=== PATIENT | female | born 1975 | race Caucasian/White ===

== ENCOUNTER 2016-07-17 16:32 | Emergency (ER) | payer OTHER, MEDICARE, MEDICAID ==
[2016-07-17 17:00] LABS: Urine Bacteria 3+ (Absent); Urine Bilirubin Negative (Negative); Urine Glucose 3+(>=500 mg/dL) (Negative); Urine Nitrite Negative (Negative)
[2016-07-17] MEDS ORDERED: Ciprofloxacin TAB* 500 MG PO ONE (17:03)
--- NOTE | 2016-07-17 17:05 | ED ---
GI/ HPI - HPI Summary HPI Summary: 41F w/ Type 1 DM presents with dysuria since yesterday. She states she has a new partner. She admits to foul smelling urine, increase frequency, urgency, and pelvic pain. She denies any fever, hematuria, flank pain, n/v. she states her sugars have been higher than normal. She states she has borderline renal failure. She has taken ciprofloxacin and amoxillicin in the past. She is on the mirena. She denies any vaginal discharge. - History of Current Complaint Chief Complaint: EDUrogenitalProblems Time Seen by Provider: 07/17/16 16:46 Stated Complaint: POSSIBLE UTI Pain Intensity: 6 - Additional Pertinent History Primary Care Physician: [id number] - Allergy/Home Medications Allergies/Adverse Reactions: Allergies Allergy/AdvReac Type Severity Reaction Status Date / Time Hydromorphone [From Dilaudid] Allergy Severe Anaphylatic Verified 07/17/16 16:39 Shock Morphine Allergy Intermediate Hives Verified 07/17/16 16:39 Erythromycin Allergy Mild Rash Verified 07/17/16 16:39 OPIATES AdvReac Vomiting Uncoded 07/17/16 16:39 PMH/Surg Hx/FS Hx/Imm Hx Endocrine/Hematology History: Reports: Hx Diabetes - type 1 Denies: Hx Anticoagulant Therapy, Hx Blood Disorders, Hx Blood Transfusions, Hx Bone Marrow Disease, Hx Systemic Lupus Erythematosus, Hx Sickle Cell Disease , Hx Thyroid Disease, Hx Anemia, Hx Unexplained Bleeding, Other Endocrine/ Hematological Disorders Cardiovascular History: Reports: Hx Hypertension, Hx Peripheral Vascular Disease Denies: Hx Aneurysm, Hx Angina, Hx Angioplasty, Hx Auto Implanted Cardiovert Defib, Hx Cardiac Arrest, Hx Cardiomegaly, Hx Congenital Heart Disease, Hx Congestive Heart Failure, Hx Coronary Artery Disease, Hx Deep Vein Thrombosis, Hx Embolism, Hx Hypercholesterolemia, Hx Hypotension, Hx Pacemaker/ICD, Hx Rheumatic Fever, Hx Syncope, Hx Valvular Heart Disease, Other Cardiovascular Problems/Disorders Respiratory History: Reports: Hx Asthma Denies: Hx Chronic Bronchitis, Hx Chronic Obstructive Pulmonary Disease (COPD ), Hx Cystic Fibrosis, Hx Lung Cancer, Hx Pleural Effusion, Hx Pneumonia, Hx Pulmonary Edema, Hx Pulmonary Embolism, Hx Seasonal Allergies, Hx Sleep Apnea, Other Respiratory Problems/Disorders GI History: Reports: Other GI Disorders Denies: Hx Cirrhosis, Hx Diverticulosis, Hx Gall Bladder Disease, Hx Gastroesophageal Reflux Disease, Hx Gastrointestinal Bleed, Hx Hiatal Hernia, Hx Irritable Bowel, Hx Jaundice, Hx Obstructive Bowel, Hx Ileostomy, Hx Pyloric Stenosis, Hx Ulcer History: Reports: Hx Acute Renal Failure, Hx Chronic Renal Failure, Hx Kidney Infection, Hx Renal Disease - ACUTE & CHRONIC RENAL FAILURE/IDDM I Denies: Hx Benign Prostatic Hyperplasia, Hx Dialysis, Hx Kidney Stones, Other Problems/Disorders Musculoskeletal History: Reports: Hx Back Problems Denies: Hx Arthritis, Hx Bursitis, Hx Congenital Bone Abnormalities, Hx Fibromyalgia, Hx Gout, Hx Orthopedic Injury, Hx Osteoporosis, Hx Scoliosis, Hx Tendonitis, Other Musculoskeletal History Sensory History: Reports: Hx Legally Blind, Hx Vision Problem - right retinal detachment Denies: Hx Cataracts, Hx Contacts or Glasses, Hx Eye Injury, Hx Eye Prosthesis, Hx Glaucoma, Hx Macular Degeneration, Hx Deafness, Hx Hearing Aid, Hx Hearing Problem, Other Sensory Impairments Opthamlomology History: Reports: Hx Legally Blind, Hx Vision Problem - right retinal detachment Denies: Hx Cataracts, Hx Contacts or Glasses, Hx Eye Injury, Hx Eye Prosthesis, Hx Glaucoma, Hx Macular Degeneration, Other Sensory Impairments Neurological History: Reports: Hx Migraine, Hx Seizures, Hx Transient Ischemic Attacks (TIA), Other Neuro Impairments/Disorders - hx. of disc disease per pt. Denies: Hx Dementia, Hx Developmental Delay, Hx Headaches, Hx Nerve Disease, Hx Spinal Cord Injury Psychiatric History: Reports: Hx Depression, Hx Inpatient Treatment - [facility] 1999 Denies: Hx Anxiety, Hx Attention Deficit Hyperactivity Disorder, Hx Eating Disorder, Hx Panic Disorder, Hx Post Traumatic Stress Disorder, Hx Community Mental Health Tx, Hx Schizophrenia, Hx Bipolar Disorder, Hx Suicide Attempt, Hx of Violent Episodes Against Others, Hx Substance Abuse, Other Psychiatric Issues /Disorders - Cancer History Hx Chemotherapy: No Hx Radiation Therapy: No Hx Palliative Cancer Treatment: No - Surgical History Surgery Procedure, Year, and Place: tubal ligation. 2 c-sections. bone spur left foot removed, VITRECTOMY RIGHT EYE FOR RETINAL DETACHMENT Hx Anesthesia Reactions: No Infectious Disease History: No Infectious Disease History: Reports: History Other Infectious Disease - HERPES Denies: Hx Clostridium Difficile, Hx Hepatitis, Hx Human Immunodeficiency Virus (HIV), Hx of Known/Suspected MRSA, Hx Shingles, Hx Tuberculosis, Hx Known/ Suspected VRE, Hx Known/Suspected VRSA, Traveled Outside the [place] in Last 30 Days - Family History Known Family History: Positive: None, Diabetes Negative: Cardiac Disease, Hypertension Family History: Crohn's Dz: half sister - Social History Alcohol Use: Occasionally Substance Use Type: Reports: None Hx Tobacco Use: Yes Smoking Status (MU): Current Every Day Smoker Type: Cigarettes Amount Used/How Often: 1 PPD Length of Time of Smoking/Using Tobacco: 29 years Have You Smoked in the Last Year: Yes Review of Systems Negative: Fever Negative: Chest Pain Negative: Shortness Of Breath Positive: Other - pelvic pain. Negative: Vomiting, Nausea Positive: dysuria, frequency, urgency. Negative: flank pain, hematuria All Other Systems Reviewed And Are Negative: Yes Physical Exam Triage Information Reviewed: Yes Vital Signs On Initial Exam: Initial Vitals Temp Pulse Resp BP Pulse Ox 96.8 F 99 18 133/85 100 07/17/16 16:38 07/17/16 16:38 07/17/16 16:38 07/17/16 16:38 07/17/16 16:38 Vital Signs Reviewed: Yes Appearance: Positive: Well-Appearing Skin: Positive: Warm, Dry Head/Face: Positive: Normal Head/Face Inspection Eyes: Positive: Normal, Conjunctiva Clear Respiratory/Lung Sounds: Positive: Clear to Auscultation, Breath Sounds Present Cardiovascular: Positive: Normal, RRR Abdomen Description: Positive: Nontender, Soft Bowel Sounds: Positive: Present - [place] Coma Scale Coma Scale Total: 15 Diagnostics - Vital Signs Vital Signs Temp Pulse Resp BP Pulse Ox 07/17/16 16:38 96.8 F 99 18 133/85 100 - Laboratory Lab Results: Lab Results 07/17/16 Range/Units 16:45 Urine Color Yellow Urine Appearance Cloudy Urine pH 5.0 (5-9) Ur Specific [place] 1.015 (1.010-1.030) Urine Protein 3+(>=500 mg/dl) H (Negative) Urine Ketones Negative (Negative) Urine Blood Negative (Negative) Urine Nitrate Negative (Negative) Urine Bilirubin Negative (Negative) Urine Urobilinogen Negative (Negative) Ur Leukocyte Esterase Trace H (Negative) Urine WBC (Auto) 2+(11-20/hpf) H (Absent) Urine RBC (Auto) Absent (Absent) Ur Squamous Epith Cells Present H (Absent) Urine Bacteria 3+ H (Absent) Hyaline Casts Present H (Absent) Urine Glucose 3+(>=500 mg/dl) H (Negative) Result Diagrams: 07/17/16 16:59 07/17/16 16:59 Lab Statement: Any lab studies that have been ordered have been reviewed, and results considered in the medical decision making process. GIGU Course/Dx - Course Course Of Treatment: 41F presents with symptoms of UTI fopr 2 days: dysuria, frequency, urgency. she is a DM1 and has noticed her sugars are slightly higher than normal. She has a new partner. she states that she has borderline renal failure and normal either uses amoxicillin or ciprofloxacin for UTI. She is sometimes on a ppx antibiotic for UTI. patient urine has bacteria and leuko esterase so will treat for uti with cipro. discussed that can not give pyrudium in renal failure but patient states would like a dose and gave it before got labs back. told to follow up with primary to make sure resolves and discuss ppx antibiotic. Cr more elevated than before so told to follow up with dr canada who follows for kidney issues. told to return if develops fever or flank pain, patient understands and agrees with plan - Diagnoses Differential Diagnoses - Female: Pyelonephritis, STD, Urinary Tract Infection, Ureteral Calculi Provider Diagnoses: Urinary tract infection Discharge - Discharge Plan Condition: Good Disposition: HOME Prescriptions: Ciprofloxacin TAB* [Cipro 500 MG TAB*] 500 mg PO BID #9 tab Patient Education Materials: Urinary Tract Infection in Women (ED) Referrals: Ortiz Rao MD [Primary Care Provider] - Additional Instructions: Take cipro twice a day for 5 days, first dose given in ED Drink plenty of fluids Check sugars as may need to increase insulin Follow up with primary in 5 days about kidney function and prophylactic antibiotics Return to ED if develop fever, severe abdominal pain or flank pain, nausea, or vomiting or any new or worsening symptoms
[2016-07-17 17:07] LABS: Hematocrit 40 % (35-47); Hemoglobin 13.3 g/dl (12.0-16.0); Mean Corpuscular HGB Conc 33 g/dl (31-36); Mean Corpuscular Hemoglobin 30 pg (27-31); Mean Corpuscular Volume 90 fL (80-97); Mean Platelet Volume 10 um3 (7.4-10.4); Red Blood Count 4.45 10^6/ul (4.0-5.4); Red Cell Distribution Width 13 % (10.5-15); White Blood Count 7.3 10^3/ul (3.5-10.8)
[2016-07-17] MEDS ORDERED: Phenazopyridine TAB* 100 MG PO ONE (17:10)
[2016-07-17 17:22] LABS: Albumin 4.1 g/dL (3.2-5.2); BUN/Creatinine Ratio 11.1 (8-20); Calcium 9.6 mg/dL (8.6-10.3); EGFR African American 33.6 (>60); EGFR Non-African American 26.1 (>60); Globulin 2.8 g/dL (2-4); Potassium 4.2 mmol/L (3.5-5.0); Total Bilirubin 0.6 mg/dL (0.2-1.0); Total Protein 6.9 g/dL (6.4-8.9)
[2016-07-17 17:24] VITALS: BP 166/91
--- NOTE | 2016-07-19 17:22 | PN ---
Progress Note - Progress Note Note: Urine culture grew E. Coli. Patient appropriately placed on cipro. nothing further to do at this time. Will await sensitivities for possible abx change.
== END 2016-07-17 17:23 | disposition home or self-care (01) ==
LOC: ED 16:32
DX: N39.0 Urinary tract infection, site not specified (principal); E10.8 Type 1 diabetes mellitus with unspecified complications; R10.2 Pelvic and perineal pain; R30.0 Dysuria; F17.210 Nicotine dependence, cigarettes, uncomplicated
CPT/HCPCS: 36415; 80053; 81003; 81015; 85025; 87077; 87086; 87186; 99283; A9270-GY

== ENCOUNTER → 2016-11-09 06:59 | Emergency (ER) | payer OTHER, MEDICARE, MEDICAID ==
[~2016-11-09 06:59] MED LIST: NS 0.9% 1000 ML* 1,000 ML IV ONE; cefTRIAXone(*) 1 GM in NS 0.9% 50 ML* 50 ML IVPB ONE
[2016-11-09 08:17] LABS: Hematocrit 44 % (35-47); Hemoglobin 14.6 g/dl (12.0-16.0); Mean Corpuscular HGB Conc 33 g/dl (31-36); Mean Corpuscular Hemoglobin 31 pg (27-31); Mean Corpuscular Volume 94 fL (80-97); Mean Platelet Volume 9 um3 (7.4-10.4); Red Blood Count 4.65 10^6/ul (4.0-5.4); Red Cell Distribution Width 13 % (10.5-15); White Blood Count 10.6 10^3/ul (3.5-10.8)
[2016-11-09 08:32] LABS: Albumin 3.8 g/dL (3.2-5.2); BUN/Creatinine Ratio 17.3 (8-20); C Reactive Protein 13.71 mg/L (< 5.00); Calcium 9.3 mg/dL (8.6-10.3); EGFR African American 36.9 (>60); EGFR Non-African American 28.7 (>60); Potassium 3.7 mmol/L (3.5-5.0); Total Bilirubin 0.5 mg/dL (0.2-1.0); Total Protein 6.8 g/dL (6.4-8.9)
[2016-11-09 08:34] LABS: Troponin I 0.01 ng/mL (<0.04)
--- NOTE | 2016-11-09 08:50 | RAD ---
INDICATION: RIGHT lower extremity pain and edema. Diabetic. COMPARISON: LEFT lower extremity venous ultrasound November 08, 2016 TECHNIQUE: Ware scale, color Doppler, and spectral analysis of the deep veins of the RIGHT lower extremity. Vessel compression, phasicity, and augmentation assessed. REPORT: The RIGHT common femoral, great saphenous, profunda femoral, femoral, popliteal, peroneal, and posterior tibial veins are patent. Normal size and morphology common femoral level lymph node noted. Patency of the LEFT common femoral vein documented. IMPRESSION: No evidence for RIGHT lower extremity deep venous thrombosis.
--- NOTE | 2016-11-09 09:44 | ED ---
Rodrigo Cage Auryana, scribed for Bryson Rocha MD on 11/09/16 at 0715 . Lower Extremity - HPI Summary HPI Summary: 41 year old female presents with right knee pain, erythema and swelling starting 3 days ago. Mild improvement of swelling with diuretic. Pain is aggravated by ambulation. Patient reports that she has had bilateral LE edema for the last 3 months - recently had US of left leg - no DVT. 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 Denies any history of knee surgeries, liver failure, or CHF. SHx is significant for occasional alcohol use and tobacco use, but denies any recreational drug use. Dr. Rao is her PCP. - History of Current Complaint Chief Complaint: EDExtremityLower Stated Complaint: RT KNEE SWELLING/PAIN Time Seen by Provider: 11/09/16 07:29 Hx Obtained From: Patient Hx Last Menstrual Period: MIRENA IUD Mechanism Of Injury: Unknown Onset of Pain: Days - 3 Onset/Duration: Days - 3 Severity Initially: Mild Severity Currently: Moderate Pain Intensity: 6 Pain Scale Used: 0-10 Numeric Timing: Constant Location: Is Discrete @ - right knee Associated Signs And Symptoms: Positive: Swelling, Redness, Knee Pain - right Aggravating Factor(s): Ambulation Alleviating Factor(s): Other - lasik Able to Bear Weight: Yes - with pain Related History: Other - no injury - Risk Factors Gout Risk Factors: Diabetes - Allergies/Home Medications Allergies/Adverse Reactions: Allergies Allergy/AdvReac Type Severity Reaction Status Date / Time Hydromorphone [From Dilaudid] Allergy Severe Anaphylatic Verified 07/17/16 16:39 Shock Morphine Allergy Intermediate Hives Verified 07/17/16 16:39 Erythromycin Allergy Mild Rash Verified 07/17/16 16:39 OPIATES AdvReac Vomiting Uncoded 07/17/16 16:39 PMH/Surg Hx/FS Hx/Imm Hx Endocrine/Hematology History: Reports: Hx Diabetes - type 1 Denies: Hx Anticoagulant Therapy, Hx Blood Disorders, Hx Blood Transfusions, Hx Bone Marrow Disease, Hx Systemic Lupus Erythematosus, Hx Sickle Cell Disease , Hx Thyroid Disease, Hx Anemia, Hx Unexplained Bleeding, Other Endocrine/ Hematological Disorders Cardiovascular History: Reports: Hx Hypertension, Hx Peripheral Vascular Disease Denies: Hx Aneurysm, Hx Angina, Hx Angioplasty, Hx Auto Implanted Cardiovert Defib, Hx Cardiac Arrest, Hx Cardiomegaly, Hx Congenital Heart Disease, Hx Congestive Heart Failure, Hx Coronary Artery Disease, Hx Deep Vein Thrombosis, Hx Embolism, Hx Hypercholesterolemia, Hx Hypotension, Hx Pacemaker/ICD, Hx Rheumatic Fever, Hx Syncope, Hx Valvular Heart Disease, Other Cardiovascular Problems/Disorders Respiratory History: Reports: Hx Asthma Denies: Hx Chronic Bronchitis, Hx Chronic Obstructive Pulmonary Disease (COPD ), Hx Cystic Fibrosis, Hx Lung Cancer, Hx Pleural Effusion, Hx Pneumonia, Hx Pulmonary Edema, Hx Pulmonary Embolism, Hx Seasonal Allergies, Hx Sleep Apnea, Other Respiratory Problems/Disorders GI History: Reports: Other GI Disorders Denies: Hx Cirrhosis, Hx Diverticulosis, Hx Gall Bladder Disease, Hx Gastroesophageal Reflux Disease, Hx Gastrointestinal Bleed, Hx Hiatal Hernia, Hx Irritable Bowel, Hx Jaundice, Hx Obstructive Bowel, Hx Ileostomy, Hx Pyloric Stenosis, Hx Ulcer History: Reports: Hx Acute Renal Failure, Hx Chronic Renal Failure, Hx Kidney Infection, Hx Renal Disease - ACUTE & CHRONIC RENAL FAILURE/IDDM I Denies: Hx Benign Prostatic Hyperplasia, Hx Dialysis, Hx Kidney Stones, Other Problems/Disorders Musculoskeletal History: Reports: Hx Back Problems Denies: Hx Arthritis, Hx Bursitis, Hx Congenital Bone Abnormalities, Hx Fibromyalgia, Hx Gout, Hx Orthopedic Injury, Hx Osteoporosis, Hx Scoliosis, Hx Tendonitis, Other Musculoskeletal History Sensory History: Reports: Hx Legally Blind, Hx Vision Problem - right retinal detachment Denies: Hx Cataracts, Hx Contacts or Glasses, Hx Eye Injury, Hx Eye Prosthesis, Hx Glaucoma, Hx Macular Degeneration, Hx Deafness, Hx Hearing Aid, Hx Hearing Problem, Other Sensory Impairments Opthamlomology History: Reports: Hx Legally Blind, Hx Vision Problem - right retinal detachment Denies: Hx Cataracts, Hx Contacts or Glasses, Hx Eye Injury, Hx Eye Prosthesis, Hx Glaucoma, Hx Macular Degeneration, Other Sensory Impairments Neurological History: Reports: Hx Migraine, Hx Seizures, Hx Transient Ischemic Attacks (TIA), Other Neuro Impairments/Disorders - hx. of disc disease per pt. Denies: Hx Dementia, Hx Developmental Delay, Hx Headaches, Hx Nerve Disease, Hx Spinal Cord Injury Psychiatric History: Reports: Hx Depression, Hx Inpatient Treatment - [facility] 1999 Denies: Hx Anxiety, Hx Attention Deficit Hyperactivity Disorder, Hx Eating Disorder, Hx Panic Disorder, Hx Post Traumatic Stress Disorder, Hx Community Mental Health Tx, Hx Schizophrenia, Hx Bipolar Disorder, Hx Suicide Attempt, Hx of Violent Episodes Against Others, Hx Substance Abuse, Other Psychiatric Issues /Disorders - Cancer History Hx Chemotherapy: No Hx Radiation Therapy: No Hx Palliative Cancer Treatment: No - Surgical History Surgery Procedure, Year, and Place: tubal ligation. 2 c-sections. bone spur left foot removed, VITRECTOMY RIGHT EYE FOR RETINAL DETACHMENT Hx Anesthesia Reactions: No Infectious Disease History: Reports: History Other Infectious Disease - HERPES Denies: Hx Clostridium Difficile, Hx Hepatitis, Hx Human Immunodeficiency Virus (HIV), Hx of Known/Suspected MRSA, Hx Shingles, Hx Tuberculosis, Hx Known/ Suspected VRE, Hx Known/Suspected VRSA, Traveled Outside the [place] in Last 30 Days - Family History Known Family History: Positive: None, Diabetes Negative: Cardiac Disease, Hypertension Family History: Crohn's Dz: half sister - Social History Occupation: Disabled Lives: Alone Alcohol Use: Occasionally Substance Use Type: Reports: None Hx Tobacco Use: Yes Smoking Status (MU): Current Every Day Smoker Type: Cigarettes Amount Used/How Often: 1 PPD Length of Time of Smoking/Using Tobacco: 29 years Have You Smoked in the Last Year: Yes Review of Systems Constitutional: Negative Negative: Fever Eyes: Negative ENT: Negative Cardiovascular: Negative Respiratory: Negative Gastrointestinal: Negative Genitourinary: Negative Positive: Arthralgia - right knee/leg pain, Edema - right knee Positive: Other - erythema right kneeeg Neurological: Negative Psychological: Normal All Other Systems Reviewed And Are Negative: Yes Physical Exam - Summary Physical Exam Summary: VITAL SIGNS: Reviewed. GENERAL: Patient is a well-developed and nourished female who is lying comfortable in the stretcher. Patient is not in any acute respiratory distress. HEAD AND FACE: No signs of trauma. No ecchymosis, hematomas or skull depressions. No sinus tenderness. EYES: PERRLA, EOMI x 2, No injected conjunctiva, no nystagmus. EARS: Hearing grossly intact. Ear canals and tympanic membranes are within normal limits. MOUTH: Oropharynx within normal limits. NECK: Supple, trachea is midline, no adenopathy, no JVD, no carotid bruit, no c- spine tenderness, neck with full ROM. CHEST: Symmetric, no tenderness at palpation LUNGS: Clear to auscultation bilaterally. No wheezing or crackles. CVS: Regular rate and rhythm, S1 and S2 present, no murmurs or gallops appreciated. ABDOMEN: Soft, non-tender. No signs of distention. No rebound no guarding, and no masses palpated. Bowel sounds are normal. EXTREMITIES: FROM in all major joints, no edema, no cyanosis or clubbing. NEURO: Alert and oriented x 3. No acute neurological deficits. Speech is normal and follows commands. SKIN: Dry and warm. Dehydration. Erythema in the lateral aspect on the right leg - mid thigh to below the knee Triage Information Reviewed: Yes Vital Signs On Initial Exam: Initial Vitals Temp Pulse Resp BP Pulse Ox 96.8 F 90 18 123/74 100 11/09/16 07:03 11/09/16 07:03 11/09/16 07:03 11/09/16 07:03 11/09/16 07:03 Vital Signs Reviewed: Yes Diagnostics - Vital Signs Vital Signs Temp Pulse Resp BP Pulse Ox 11/09/16 07:03 96.8 F 90 18 123/74 100 - Laboratory Lab Results: Lab Results 11/09/16 11/09/16 11/09/16 Range/Units 08:00 08:00 08:00 WBC 10.6 (3.5-10.8) 10^3/ul RBC 4.65 (4.0-5.4) 10^6/ul Hgb 14.6 (12.0-16.0) g/dl Hct 44 (35-47) % MCV 94 (80-97) fL MCH 31 (27-31) pg MCHC 33 (31-36) g/dl RDW 13 (10.5-15) % Plt Count 246 (150-450) 10^3/ul MPV 9 (7.4-10.4) um3 Neut % (Auto) 79.0 (38-83) % Lymph % (Auto) 13.3 L (25-47) % [place] % (Auto) 4.4 (1-9) % Eos % (Auto) 2.3 (0-6) % Baso % (Auto) 1.0 (0-2) % Absolute Neuts (auto) 8.4 H (1.5-7.7) 10^3/ul Absolute Lymphs (auto) 1.4 (1.0-4.8) 10^3/ul Absolute Monos (auto) 0.5 (0-0.8) 10^3/ul Absolute Eos (auto) 0.2 (0-0.6) 10^3/ul Absolute Basos (auto) 0.1 (0-0.2) 10^3/ul Absolute Nucleated RBC 0.01 10^3/ul Nucleated RBC % 0.1 INR (Anticoag Therapy) 0.84 L (0.89-1.11) APTT 32.0 (26.0-36.3) seconds Sodium 136 (133-145) mmol/L Potassium 3.7 (3.5-5.0) mmol/L Chloride 100 L (101-111) mmol/L Carbon Dioxide 29 (22-32) mmol/L Anion Gap 7 (2-11) mmol/L BUN 33 H (6-24) mg/dL Creatinine 1.91 H (0.51-0.95) mg/dL Est GFR ( Amer) 36.9 (>60) Est GFR (Non-Af Amer) 28.7 (>60) BUN/Creatinine Ratio 17.3 (8-20) Glucose 127 H (70-100) mg/dL Lactic Acid (0.5-2.0) mmol/L Calcium 9.3 (8.6-10.3) mg/dL Total Bilirubin 0.50 (0.2-1.0) mg/dL AST 11 L (13-39) U/L ALT 5 L (7-52) U/L Alkaline Phosphatase 55 (34-104) U/L Troponin I 0.01 (<0.04) ng/mL C-Reactive Protein 13.71 H (< 5.00) mg/L Total Protein 6.8 (6.4-8.9) g/dL Albumin 3.8 (3.2-5.2) g/dL Globulin 3.0 (2-4) g/dL Albumin/Globulin Ratio 1.3 (1-3) 11/09/16 Range/Units 08:00 WBC (3.5-10.8) 10^3/ul RBC (4.0-5.4) 10^6/ul Hgb (12.0-16.0) g/dl Hct (35-47) % MCV (80-97) fL MCH (27-31) pg MCHC (31-36) g/dl RDW (10.5-15) % Plt Count (150-450) 10^3/ul MPV (7.4-10.4) um3 Neut % (Auto) (38-83) % Lymph % (Auto) (25-47) % [place] % (Auto) (1-9) % Eos % (Auto) (0-6) % Baso % (Auto) (0-2) % Absolute Neuts (auto) (1.5-7.7) 10^3/ul Absolute Lymphs (auto) (1.0-4.8) 10^3/ul Absolute Monos (auto) (0-0.8) 10^3/ul Absolute Eos (auto) (0-0.6) 10^3/ul Absolute Basos (auto) (0-0.2) 10^3/ul Absolute Nucleated RBC 10^3/ul Nucleated RBC % INR (Anticoag Therapy) (0.89-1.11) APTT (26.0-36.3) seconds Sodium (133-145) mmol/L Potassium (3.5-5.0) mmol/L Chloride (101-111) mmol/L Carbon Dioxide (22-32) mmol/L Anion Gap (2-11) mmol/L BUN (6-24) mg/dL Creatinine (0.51-0.95) mg/dL Est GFR ( Amer) (>60) Est GFR (Non-Af Amer) (>60) BUN/Creatinine Ratio (8-20) Glucose (70-100) mg/dL Lactic Acid 0.8 (0.5-2.0) mmol/L Calcium (8.6-10.3) mg/dL Total Bilirubin (0.2-1.0) mg/dL AST (13-39) U/L ALT (7-52) U/L Alkaline Phosphatase (34-104) U/L Troponin I (<0.04) ng/mL C-Reactive Protein (< 5.00) mg/L Total Protein (6.4-8.9) g/dL Albumin (3.2-5.2) g/dL Globulin (2-4) g/dL Albumin/Globulin Ratio (1-3) Result Diagrams: 11/09/16 08:00 11/09/16 08:00 Lab Statement: Any lab studies that have been ordered have been reviewed, and results considered in the medical decision making process. - Additional Comments Diagnostic Additional Comments: VL lower extremity RIGHT - IMPRESSION: No evidence for RIGHT lower extremity deep venous thrombosis. Lower Extremity Course/Dx - Course Assessment/Plan: 41 year old female presents with right knee pain, erythema and swelling starting 3 days ago. Mild improvement of swelling with diuretic. Pain is aggravated by ambulation. Patient reports that she has had bilateral LE edema for the last 3 months - recently had US of left leg - no DVT. 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 Denies any history of knee surgeries, liver failure, or CHF. SHx is significant for occasional alcohol use and tobacco use. Test results WNL except increased BUN/creatinine consistent with chronic renal failure. Glucose 127, CRP 13.7. VL lower extremity RIGHT - IMPRESSION: No evidence for RIGHT lower extremity deep venous thrombosis. Therefore I believe her symptoms secondary to acute onset cellulitis. She was given ceftriaxone IV. She will be discharged with Bactrim 1 tab BID for 10 days. We marked the edges of erythema on the leg and she instructed to return if erythema surpasses the vesta or is she develops any fever, chills, weakness, or any other symptoms. She understands and agrees. Dx: cellulitis - Diagnoses Differential Diagnosis/HQI/PQRI: Positive: Bursitis, Cellulitis, DVT, Infection , Phlebitis Provider Diagnoses: Cellulitis Discharge - Discharge Plan Condition: Stable Disposition: HOME Prescriptions: Sulfamethox/Trimethoprim DS* [Bactrim DS 800/160 TAB*] 1 tab PO BID #20 tab Patient Education Materials: Cellulitis (ED) Referrals: Ortiz Rao MD [Primary Care Provider] - 2 Days The documentation as recorded by the Rodrigo mcdaniel Auryana accurately reflects the service I personally performed and the decisions made by me, Bryson Rocha MD.
[2016-11-09 09:59] VITALS: BP 139/87
== END | disposition home or self-care (01) ==
LOC: ED 06:59
DX: L03.90 Cellulitis, unspecified (principal); M25.561 Pain in right knee; F17.210 Nicotine dependence, cigarettes, uncomplicated
CPT/HCPCS: 36415; 80053; 83605; 84484; 85025; 85610; 85730; 86140; 87040; 96365; 99284; J0696

== ENCOUNTER 2016-11-21 06:14 | Emergency (ER) | payer OTHER, MEDICARE, MEDICAID ==
[2016-11-21] MEDS ORDERED: NS 0.9% 1000 ML* 1,000 ML IV ONE (07:23)
--- NOTE | 2016-11-21 08:23 | RAD ---
INDICATION: Abdominal pain, history of constipation. COMPARISON: Comparison is made with a prior KUB series from December 24, 2015. TECHNIQUE: Supine and upright views of the abdomen were obtained. FINDINGS: The small bowel and colon appear nondistended. No free intraperitoneal air is seen. There is a large amount of stool present throughout the colon consistent with the patient's history of constipation. There is a T-shaped IUD which projects over the right side of the pelvis. IMPRESSION: LARGE AMOUNT RETAINED STOOL CONSISTENT WITH THE PATIENT'S HISTORY OF CONSTIPATION.
[2016-11-21 09:02] LABS: Hematocrit 46 % (35-47); Hemoglobin 15.1 g/dl (12.0-16.0); Mean Corpuscular HGB Conc 33 g/dl (31-36); Mean Corpuscular Hemoglobin 31 pg (27-31); Mean Corpuscular Volume 94 fL (80-97); Mean Platelet Volume 9 um3 (7.4-10.4); Red Blood Count 4.85 10^6/ul (4.0-5.4); Red Cell Distribution Width 13 % (10.5-15); White Blood Count 7.7 10^3/ul (3.5-10.8)
[2016-11-21 09:18] LABS: Albumin 4.3 g/dL (3.2-5.2); C Reactive Protein 1.17 mg/L (< 5.00); Calcium 9.7 mg/dL (8.6-10.3); EGFR Non-African American 20.2 (>60); Globulin 3.2 g/dL (2-4); Potassium 4.4 mmol/L (3.5-5.0); Total Bilirubin 0.4 mg/dL (0.2-1.0); Total Protein 7.5 g/dL (6.4-8.9)
[2016-11-21] MEDS ORDERED: Magnesium CITRATE* 300 ML BTL PO ONE (09:43)
[2016-11-21] MEDS ORDERED: Polyethylene Glycol 3350* 17 GM PACKET PO ONE (09:43)
[2016-11-21] MEDS ORDERED: Sodium Phosphate ADULT ENEMA* 118 ml bottle PR ONE (09:50)
[2016-11-21 10:25] VITALS: BP 144/79
--- NOTE | 2016-11-21 17:37 | ED ---
Valdez Cage Thomas, scribed for Bryson Rocha MD on 11/21/16 at 0714 . Abdominal Pain/Female - HPI Summary HPI Summary: The pt is a 41 y/o F presenting to the ED c/o abd pain that began yesterday at 22:00. She has not had a BM in two weeks. Her constipation has not been alleviated by water and enema. She is normally chronically constipated, but not to this severity. She recently was put on bumetanide, approximately 2 weeks ago. The patient rates the pain 4/10. Pt additionally complains of nausea (when attempting to defecate). Pt denies fevers and chills. PMHx: Type 1 DM, HTN, borderline renal failure, retinopathy, neuropathy UEs and LEs, TIA (2013). PSHx : tubal ligation. SHx: smoking, occasional alcohol, no illicit drugs. FHx: CA. - History of Current Complaint Chief Complaint: EDAbdPain Stated Complaint: CONSTPATION Hx Obtained From: Patient Hx Last Menstrual Period: MIRENA IUD Onset/Duration: Lasting Hours - yesteday at 22:00, Still Present Timing: Constant Severity Currently: Moderate Pain Intensity: 4 Pain Scale Used: 0-10 Numeric Location: Diffuse Aggravating Factor(s): Nothing Alleviating Factor(s): Nothing Associated Signs and Symptoms: Positive: Constipation - for 2 weeks, Nausea - when attempting to defecate. Negative: Fever, Other: - NEG: chills Allergies/Adverse Reactions: Allergies Allergy/AdvReac Type Severity Reaction Status Date / Time Hydromorphone [From Dilaudid] Allergy Severe Anaphylatic Verified 07/17/16 16:39 Shock Morphine Allergy Intermediate Hives Verified 07/17/16 16:39 Erythromycin Allergy Mild Rash Verified 07/17/16 16:39 OPIATES AdvReac Vomiting Uncoded 07/17/16 16:39 PMH/Surg Hx/FS Hx/Imm Hx Previously Healthy: No Endocrine/Hematology History: Reports: Hx Diabetes - type 1 Denies: Hx Anticoagulant Therapy, Hx Blood Disorders, Hx Blood Transfusions, Hx Bone Marrow Disease, Hx Systemic Lupus Erythematosus, Hx Sickle Cell Disease , Hx Thyroid Disease, Hx Anemia, Hx Unexplained Bleeding, Other Endocrine/ Hematological Disorders Cardiovascular History: Reports: Hx Hypertension, Hx Peripheral Vascular Disease Denies: Hx Aneurysm, Hx Angina, Hx Angioplasty, Hx Auto Implanted Cardiovert Defib, Hx Cardiac Arrest, Hx Cardiomegaly, Hx Congenital Heart Disease, Hx Congestive Heart Failure, Hx Coronary Artery Disease, Hx Deep Vein Thrombosis, Hx Embolism, Hx Hypercholesterolemia, Hx Hypotension, Hx Pacemaker/ICD, Hx Rheumatic Fever, Hx Syncope, Hx Valvular Heart Disease, Other Cardiovascular Problems/Disorders Respiratory History: Reports: Hx Asthma Denies: Hx Chronic Bronchitis, Hx Chronic Obstructive Pulmonary Disease (COPD ), Hx Cystic Fibrosis, Hx Lung Cancer, Hx Pleural Effusion, Hx Pneumonia, Hx Pulmonary Edema, Hx Pulmonary Embolism, Hx Seasonal Allergies, Hx Sleep Apnea, Other Respiratory Problems/Disorders GI History: Reports: Other GI Disorders Denies: Hx Cirrhosis, Hx Diverticulosis, Hx Gall Bladder Disease, Hx Gastroesophageal Reflux Disease, Hx Gastrointestinal Bleed, Hx Hiatal Hernia, Hx Irritable Bowel, Hx Jaundice, Hx Obstructive Bowel, Hx Ileostomy, Hx Pyloric Stenosis, Hx Ulcer History: Reports: Hx Acute Renal Failure, Hx Chronic Renal Failure, Hx Kidney Infection, Hx Renal Disease - ACUTE & CHRONIC RENAL FAILURE/IDDM I Denies: Hx Benign Prostatic Hyperplasia, Hx Dialysis, Hx Kidney Stones, Other Problems/Disorders Musculoskeletal History: Reports: Hx Back Problems Denies: Hx Arthritis, Hx Bursitis, Hx Congenital Bone Abnormalities, Hx Fibromyalgia, Hx Gout, Hx Orthopedic Injury, Hx Osteoporosis, Hx Scoliosis, Hx Tendonitis, Other Musculoskeletal History Sensory History: Reports: Hx Legally Blind, Hx Vision Problem - right retinal detachment Denies: Hx Cataracts, Hx Contacts or Glasses, Hx Eye Injury, Hx Eye Prosthesis, Hx Glaucoma, Hx Macular Degeneration, Hx Deafness, Hx Hearing Aid, Hx Hearing Problem, Other Sensory Impairments Opthamlomology History: Reports: Hx Legally Blind, Hx Vision Problem - right retinal detachment Denies: Hx Cataracts, Hx Contacts or Glasses, Hx Eye Injury, Hx Eye Prosthesis, Hx Glaucoma, Hx Macular Degeneration, Other Sensory Impairments Neurological History: Reports: Hx Migraine, Hx Seizures, Hx Transient Ischemic Attacks (TIA), Other Neuro Impairments/Disorders - hx. of disc disease per pt. Denies: Hx Dementia, Hx Developmental Delay, Hx Headaches, Hx Nerve Disease, Hx Spinal Cord Injury Psychiatric History: Reports: Hx Depression, Hx Inpatient Treatment - [facility] 1999 Denies: Hx Anxiety, Hx Attention Deficit Hyperactivity Disorder, Hx Eating Disorder, Hx Panic Disorder, Hx Post Traumatic Stress Disorder, Hx Community Mental Health Tx, Hx Schizophrenia, Hx Bipolar Disorder, Hx Suicide Attempt, Hx of Violent Episodes Against Others, Hx Substance Abuse, Other Psychiatric Issues /Disorders - Cancer History Hx Chemotherapy: No Hx Radiation Therapy: No Hx Palliative Cancer Treatment: No - Surgical History Surgery Procedure, Year, and Place: tubal ligation. 2 c-sections. bone spur left foot removed, VITRECTOMY RIGHT EYE FOR RETINAL DETACHMENT Hx Anesthesia Reactions: No Infectious Disease History: No Infectious Disease History: Reports: History Other Infectious Disease - HERPES Denies: Hx Clostridium Difficile, Hx Hepatitis, Hx Human Immunodeficiency Virus (HIV), Hx of Known/Suspected MRSA, Hx Shingles, Hx Tuberculosis, Hx Known/ Suspected VRE, Hx Known/Suspected VRSA, Traveled Outside the [place] in Last 30 Days - Family History Known Family History: Positive: Diabetes, Other - POS: [place] Negative: Cardiac Disease, Hypertension Family History: Crohn's Dz: half sister - Social History Alcohol Use: Occasionally Substance Use Type: Reports: None Hx Tobacco Use: Yes Smoking Status (MU): Heavy Every Day Tobacco Smoker Type: Cigarettes Amount Used/How Often: 1 PPD Length of Time of Smoking/Using Tobacco: 29 years Have You Smoked in the Last Year: Yes Review of Systems Constitutional: Negative Negative: Fever, Chills Eyes: Negative ENT: Negative Cardiovascular: Negative Respiratory: Negative Positive: Abdominal Pain - onset yesterday at 22:00, Nausea - when attempting to defecate, Other - POS: constipation, 2 weeks ago onset Genitourinary: Negative Musculoskeletal: Negative Skin: Negative Neurological: Negative Psychological: Normal All Other Systems Reviewed And Are Negative: Yes Physical Exam - Summary Physical Exam Summary: VITAL SIGNS: Reviewed. GENERAL: Patient is a well-developed and nourished female who is lying comfortable in the stretcher. ~Patient is not in any acute respiratory distress. HEAD AND FACE: Normocephalic and atraumatic. EYES: PERRLA, EOMI x 2, No injected conjunctiva. EARS: Hearing grossly intact. Ear canals and tympanic membranes are WNL. MOUTH: Oropharynx within normal limits. NECK: Supple, trachea is midline, no adenopathy, no JVD. CHEST: Symmetric, no tenderness at palpation LUNGS: Clear to auscultation bilaterally. No wheezing or crackles. CVS: RRR, S1 and S2 present, no murmurs or gallops appreciated. ABDOMEN: Insulin pump on the LUQ. Soft, non-tender. No signs of distention. Positive bowel sounds. No rebound no guarding, and no masses palpated. No abdominal bruit or pulsations. EXTREMITIES: FROM in all major joints, no edema, no cyanosis or clubbing. NEURO: Alert and oriented x 3. No acute neurological deficits. Speech is normal. SKIN: Dry and warm Triage Information Reviewed: Yes Vital Signs On Initial Exam: Initial Vitals Temp Pulse Resp BP Pulse Ox 97.3 F 95 18 121/76 100 11/21/16 06:21 11/21/16 06:21 11/21/16 06:21 11/21/16 06:21 11/21/16 06:21 Vital Signs Reviewed: Yes - [place] Coma Scale Coma Scale Total: 15 Diagnostics - Vital Signs Vital Signs Temp Pulse Resp BP Pulse Ox 11/21/16 06:30 151/80 11/21/16 06:29 97.6 F 80 16 151/80 98 11/21/16 06:21 97.3 F 95 18 121/76 100 - Laboratory Lab Results: Lab Results 11/21/16 11/21/16 Range/Units 08:40 08:40 WBC 7.7 (3.5-10.8) 10^3/ul RBC 4.85 (4.0-5.4) 10^6/ul Hgb 15.1 (12.0-16.0) g/dl Hct 46 (35-47) % MCV 94 (80-97) fL MCH 31 (27-31) pg MCHC 33 (31-36) g/dl RDW 13 (10.5-15) % Plt Count 284 (150-450) 10^3/ul MPV 9 (7.4-10.4) um3 Neut % (Auto) 71.0 (38-83) % Lymph % (Auto) 20.8 L (25-47) % [place] % (Auto) 4.5 (1-9) % Eos % (Auto) 2.5 (0-6) % Baso % (Auto) 1.2 (0-2) % Absolute Neuts (auto) 5.5 (1.5-7.7) 10^3/ul Absolute Lymphs (auto) 1.6 (1.0-4.8) 10^3/ul Absolute Monos (auto) 0.3 (0-0.8) 10^3/ul Absolute Eos (auto) 0.2 (0-0.6) 10^3/ul Absolute Basos (auto) 0.1 (0-0.2) 10^3/ul Absolute Nucleated RBC 0.01 10^3/ul Nucleated RBC % 0.1 Sodium 138 (133-145) mmol/L Potassium 4.4 (3.5-5.0) mmol/L Chloride 104 (101-111) mmol/L Carbon Dioxide 28 (22-32) mmol/L Anion Gap 6 (2-11) mmol/L BUN 31 H (6-24) mg/dL Creatinine 2.59 H (0.51-0.95) mg/dL Est GFR ( Amer) 26.0 (>60) Est GFR (Non-Af Amer) 20.2 (>60) BUN/Creatinine Ratio 12.0 (8-20) Glucose 80 (70-100) mg/dL Calcium 9.7 (8.6-10.3) mg/dL Total Bilirubin 0.40 (0.2-1.0) mg/dL AST 14 (13-39) U/L ALT 8 (7-52) U/L Alkaline Phosphatase 59 (34-104) U/L C-Reactive Protein 1.17 (< 5.00) mg/L Total Protein 7.5 (6.4-8.9) g/dL Albumin 4.3 (3.2-5.2) g/dL Globulin 3.2 (2-4) g/dL Albumin/Globulin Ratio 1.3 (1-3) Lipase 37 (11.0-82.0) U/L Result Diagrams: 11/21/16 08:40 11/21/16 08:40 Lab Statement: Any lab studies that have been ordered have been reviewed, and results considered in the medical decision making process. - Radiology XR Abdo Xray Interpretation: Positive (See Comments) - LARGE AMOUNT RETAINED STOOL CONSISTENT WITH THE PATIENT'S HISTORY OF CONSTIPATION. Radiology Interpretation Completed By: Radiologist Abdominal Pain Fem Course/Dx - Course Course Of Treatment: The pt is a 41 y/o F presenting to the ED c/o abd pain that began yesterday at 22:00. She has not had a BM in two weeks. Her constipation has not been alleviated by water and enema. She is normally chronically constipated, but not to this severity. She recently was put on bumetanide, approximately 2 weeks ago. The patient rates the pain 4/10. Pt additionally complains of nausea (when attempting to defecate). Pt denies fevers and chills. PMHx: Type 1 DM, HTN, borderline renal failure, retinopathy, neuropathy UEs and LEs, TIA (2013). PSHx: tubal ligation. SHx: smoking, occasional alcohol, no illicit drugs. FHx: CA. Test results were withoug significant abnormality except for her chronic renal insufficiency secondary to chronic DM. An XR Abdo revealed LARGE AMOUNT RETAINED STOOL CONSISTENT WITH THE PATIENT'S HISTORY OF. CONSTIPATION. In the ED course the patient was given Miralax, magnesium citrate, lactulose, and a fleet edema, as well as IV fluids. Since the patient doesnt have an obstruction and only constipation, the patient will be discharged home with a prescription of Miralax, magnesium citrate, and a fleet edema. I did a rectal exam, however I was unable to reach stool for this compaction. The patient is comfortable going home and taking these medications. She is hemodynamically stable and A&Ox3. I discussed all the findings and test results with the patient. Patient was instructed to return to the emergency room immediately if any of the symptoms return or worsens. Plan of care was discussed with the patient and understands and agrees. All questions were answered at patient satisfaction. There were no further complaints or concerns. Lung exam before discharge: CTA B/L. Good air exchange. No wheezing or crackles heard. CVS: S1 and S2 present. No murmurs appreciated. Patient is alert and oriented x 3. Patient is hemodynamically stable. Patient will be discharged home with follow up PCP in the next 2-3 days - Diagnoses Differential Diagnosis: Positive: Bowel Obstruction, Constipation Provider Diagnoses: Constipation Discharge - Discharge Plan Condition: Stable Disposition: HOME Prescriptions: Magnesium CITRATE* [Citrate of Magnesia*] 300 ml PO ONCE #1 btl Polyethylene Glycol 3350* [Miralax*] 17 gm PO DAILY #12 packet Sodium Phosphate ADULT ENEMA* [Fleet Enema*] 1 enema [place] BEDTIME PRN #1 btl PRN Reason: Constipation Patient Education Materials: Constipation (ED) Referrals: Ortiz Rao MD [Primary Care Provider] - 3 Days The documentation as recorded by the scribe, Vadlez,Leoncio accurately reflects the service I personally performed and the decisions made by me, Bryson Rocha MD.
== END 2016-11-21 10:24 | disposition home or self-care (01) ==
LOC: ED 06:14
DX: K59.00 Constipation, unspecified (principal); E10.9 Type 1 diabetes mellitus without complications; I10 Essential (primary) hypertension; Z86.73 Personal history of transient ischemic attack (TIA), and cerebral infarction without residual deficits; I73.9 Peripheral vascular disease, unspecified; J45.909 Unspecified asthma, uncomplicated; H54.8 Legal blindness, as defined in USA; F32.9 Major depressive disorder, single episode, unspecified; F17.210 Nicotine dependence, cigarettes, uncomplicated
CPT/HCPCS: 36415; 74020; 80053; 83690; 85025; 86140; 96360; 99282; A9270-GY

== ENCOUNTER 2017-01-26 01:35 | Emergency (ER) | payer OTHER, MEDICARE, MEDICAID ==
[2017-01-26] MEDS ORDERED: Insulin GLARGINE(*) 1 UNITS UNIT SUBCUT ONE (04:09)
[2017-01-26] MEDS ORDERED: Dextrose 50% Syringe 50 ML* 25 GM/50 ML SYRINGE IV PUSH PRN (04:11)
[2017-01-26] MEDS ORDERED: Insulin LISPRO* 1 UNITS UNIT SUBCUT ONE (04:11)
--- NOTE | 2017-01-26 04:58 | ED ---
Nidia Cage Alfonso, scribed for Allan Mora MD on 01/26/17 at 0412 . HPI Diabetic - HPI Summary HPI Summary: This patient is a 41 year old F presenting to [facility] with a chief complaint of broken insulin pump since 0000 today. She states she is out of insulin, and is requesting long acting insulin to get her through the night. She reports taking Lantus 17 to 15 a day with Humalog 1 unit for every 50/150. The patient rates her pain 0/10 in severity. Patient reports feeling high blood sugar, and thirst. PMHx includes DM1. - History Of Current Complaint Chief Complaint: EDDiabeticProb Hx Obtained From: Patient Hx Last Menstrual Period: MIRENA IUD Onset/Duration: Sudden Onset, Lasting Hours, Still Present Timing: Constant Character: Alert Associated Signs & Symptoms: Polydipsia Related History: DM I - Allergies/Home Medications Allergies/Adverse Reactions: Allergies Allergy/AdvReac Type Severity Reaction Status Date / Time Hydromorphone [From Dilaudid] Allergy Severe Anaphylatic Verified 01/26/17 01:42 Shock Morphine Allergy Intermediate Hives Verified 01/26/17 01:42 Erythromycin Allergy Mild Rash Verified 01/26/17 01:42 Fluconazole [From Diflucan] Allergy Rash Verified 01/26/17 01:42 OPIATES AdvReac Vomiting Uncoded 01/26/17 01:42 PMH/Surg Hx/FS Hx/Imm Hx Endocrine/Hematology History: Reports: Hx Diabetes - type 1 Denies: Hx Anticoagulant Therapy, Hx Blood Disorders, Hx Blood Transfusions, Hx Bone Marrow Disease, Hx Systemic Lupus Erythematosus, Hx Sickle Cell Disease , Hx Thyroid Disease, Hx Anemia, Hx Unexplained Bleeding, Other Endocrine/ Hematological Disorders Cardiovascular History: Reports: Hx Hypertension, Hx Peripheral Vascular Disease Denies: Hx Aneurysm, Hx Angina, Hx Angioplasty, Hx Auto Implanted Cardiovert Defib, Hx Cardiac Arrest, Hx Cardiomegaly, Hx Congenital Heart Disease, Hx Congestive Heart Failure, Hx Coronary Artery Disease, Hx Deep Vein Thrombosis, Hx Embolism, Hx Hypercholesterolemia, Hx Hypotension, Hx Pacemaker/ICD, Hx Rheumatic Fever, Hx Syncope, Hx Valvular Heart Disease, Other Cardiovascular Problems/Disorders Respiratory History: Reports: Hx Asthma Denies: Hx Chronic Bronchitis, Hx Chronic Obstructive Pulmonary Disease (COPD ), Hx Cystic Fibrosis, Hx Lung Cancer, Hx Pleural Effusion, Hx Pneumonia, Hx Pulmonary Edema, Hx Pulmonary Embolism, Hx Seasonal Allergies, Hx Sleep Apnea, Other Respiratory Problems/Disorders GI History: Reports: Other GI Disorders Denies: Hx Cirrhosis, Hx Diverticulosis, Hx Gall Bladder Disease, Hx Gastroesophageal Reflux Disease, Hx Gastrointestinal Bleed, Hx Hiatal Hernia, Hx Irritable Bowel, Hx Jaundice, Hx Obstructive Bowel, Hx Ileostomy, Hx Pyloric Stenosis, Hx Ulcer History: Reports: Hx Acute Renal Failure, Hx Chronic Renal Failure, Hx Kidney Infection, Hx Renal Disease - ACUTE & CHRONIC RENAL FAILURE/IDDM I Denies: Hx Benign Prostatic Hyperplasia, Hx Dialysis, Hx Kidney Stones, Other Problems/Disorders Musculoskeletal History: Reports: Hx Back Problems Denies: Hx Arthritis, Hx Bursitis, Hx Congenital Bone Abnormalities, Hx Fibromyalgia, Hx Gout, Hx Orthopedic Injury, Hx Osteoporosis, Hx Scoliosis, Hx Tendonitis, Other Musculoskeletal History Sensory History: Reports: Hx Legally Blind, Hx Vision Problem - right retinal detachment Denies: Hx Cataracts, Hx Contacts or Glasses, Hx Eye Injury, Hx Eye Prosthesis, Hx Glaucoma, Hx Macular Degeneration, Hx Deafness, Hx Hearing Aid, Hx Hearing Problem, Other Sensory Impairments Opthamlomology History: Reports: Hx Legally Blind, Hx Vision Problem - right retinal detachment Denies: Hx Cataracts, Hx Contacts or Glasses, Hx Eye Injury, Hx Eye Prosthesis, Hx Glaucoma, Hx Macular Degeneration, Other Sensory Impairments Neurological History: Reports: Hx Migraine, Hx Seizures, Hx Transient Ischemic Attacks (TIA), Other Neuro Impairments/Disorders - hx. of disc disease per pt. Denies: Hx Dementia, Hx Developmental Delay, Hx Headaches, Hx Nerve Disease, Hx Spinal Cord Injury Psychiatric History: Reports: Hx Depression, Hx Inpatient Treatment - [facility] 1999 Denies: Hx Anxiety, Hx Attention Deficit Hyperactivity Disorder, Hx Eating Disorder, Hx Panic Disorder, Hx Post Traumatic Stress Disorder, Hx Community Mental Health Tx, Hx Schizophrenia, Hx Bipolar Disorder, Hx Suicide Attempt, Hx of Violent Episodes Against Others, Hx Substance Abuse, Other Psychiatric Issues /Disorders - Cancer History Hx Chemotherapy: No Hx Radiation Therapy: No Hx Palliative Cancer Treatment: No - Surgical History Surgery Procedure, Year, and Place: tubal ligation. 2 c-sections. bone spur left foot removed, VITRECTOMY RIGHT EYE FOR RETINAL DETACHMENT Hx Anesthesia Reactions: No Infectious Disease History: No Infectious Disease History: Reports: History Other Infectious Disease - HERPES Denies: Hx Clostridium Difficile, Hx Hepatitis, Hx Human Immunodeficiency Virus (HIV), Hx of Known/Suspected MRSA, Hx Shingles, Hx Tuberculosis, Hx Known/ Suspected VRE, Hx Known/Suspected VRSA, Traveled Outside the [place] in Last 30 Days - Family History Known Family History: Positive: Diabetes, Other - POS: [place] Negative: Cardiac Disease, Hypertension Family History: Crohn's Dz: half sister - Social History Alcohol Use: Occasionally Substance Use Type: Reports: None Hx Tobacco Use: Yes Smoking Status (MU): Heavy Every Day Tobacco Smoker Type: Cigarettes Amount Used/How Often: 1 PPD Length of Time of Smoking/Using Tobacco: 29 years Have You Smoked in the Last Year: Yes Review of Systems Positive: Other - feeling high blood sugar, broken insulin pump Positive: Other - increased thirst All Other Systems Reviewed And Are Negative: Yes Physical Exam - Summary Physical Exam Summary: General: well-appearing, no pain distress Skin: warm, color reflects adequate perfusion, dry Head: normal Eyes: EOMI, DODIE ENT: normal Neck: supple, nontender Respiratory: CTA, breath sounds present Cardiovascular: RRR Abdomen: soft, nontender Bowel: present Musculoskeletal: normal, strength/ROM intact Neurological: normal, sensory/motor intact, A&O x3 Psychological: affect/mood appropriate Triage Information Reviewed: Yes Vital Signs On Initial Exam: Initial Vitals Temp Pulse Resp BP Pulse Ox 97.7 F 91 16 116/72 100 01/26/17 01:37 01/26/17 01:37 01/26/17 01:37 01/26/17 01:37 01/26/17 01:37 Vital Signs Reviewed: Yes - [place] Coma Scale Coma Scale Total: 15 Diagnostics - Vital Signs Vital Signs Temp Pulse Resp BP Pulse Ox 01/26/17 01:37 97.7 F 91 16 116/72 100 - Laboratory Lab Statement: Any lab studies that have been ordered have been reviewed, and results considered in the medical decision making process. Diabetic Course/Dx - Course Course Of Treatment: GIVEN LANTUS 15 UNITS SC IN ED AND 1 BOTTLE OF HUMALOG. F/ U PMD THIS AM. - Diagnoses Provider Diagnoses: Diabetes mellitus type 1 Discharge - Discharge Plan Condition: Stable Disposition: HOME Patient Education Materials: Type 1 Diabetes in Adults (ED) Referrals: Ortiz Rao MD [Primary Care Provider] - Additional Instructions: FOLLOW UP WITH YOUR DOCTOR. RETURN TO THE EMERGENCY DEPARTMENT FOR ANY WORSENING OF YOUR CONDITION OR QUESTIONS OR CONCERNS. The documentation as recorded by the Nidia mcdaniel Alfonso accurately reflects the service I personally performed and the decisions made by me, Allan Mora MD.
[2017-01-26 05:15] VITALS: BP 102/72
== END 2017-01-26 05:15 | disposition home or self-care (01) ==
LOC: ED 01:35
DX: E10.9 Type 1 diabetes mellitus without complications (principal); F17.210 Nicotine dependence, cigarettes, uncomplicated; Z79.4 Long term (current) use of insulin
CPT/HCPCS: 99283

== ENCOUNTER 2017-01-26 18:23 | Emergency (ER) | payer OTHER, MEDICARE, MEDICAID ==
[2017-01-26 18:39] VITALS: BP 126/74
--- NOTE | 2017-01-26 18:41 | UC ---
Complaint Female HPI - HPI Summary HPI Summary: 41 YEAR OLD FEMALE PRESENTS WITH BURNING WHILE URINATING. - History Of Current Complaint Chief Complaint: UCGU Stated Complaint: BURNING URINATION Time Seen by Provider: 01/26/17 18:40 Hx Obtained From: Patient Hx Last Menstrual Period: pt states on mirena and does not get a mense Onset/Duration: Sudden Onset Timing: Constant Severity Initially: Moderate Severity Currently: Moderate Pain Scale Used: 0-10 Numeric - 6 - Allergies/Home Medications Allergies/Adverse Reactions: Allergies Allergy/AdvReac Type Severity Reaction Status Date / Time Hydromorphone [From Dilaudid] Allergy Severe Anaphylatic Verified 01/26/17 18:39 Shock Morphine Allergy Intermediate Hives Verified 01/26/17 18:39 Erythromycin Allergy Mild Rash Verified 01/26/17 18:39 Fluconazole [From Diflucan] Allergy Rash Verified 01/26/17 18:39 OPIATES AdvReac Vomiting Uncoded 01/26/17 01:42 Home Medications: Home Medications metroNIDAZOLE TAB* [Flagyl 250 mg TAB*] 250 mg PO BID 01/26/17 [History Confirmed 01/26/17] PMH/Surg Hx/FS Hx/Imm Hx Other History Of: Negative For: Anticoagulant Therapy - Surgical History Surgical History: Yes Surgery Procedure, Year, and Place: tubal ligation. 2 c-sections. bone spur left foot removed, VITRECTOMY RIGHT EYE FOR RETINAL DETACHMENT - Family History Known Family History: Positive: None, Diabetes, Other - POS: [place] Negative: Cardiac Disease, Hypertension Family History: Crohn's Dz: half sister - Social History Alcohol Use: Occasionally Substance Use Type: None Smoking Status (MU): Heavy Every Day Tobacco Smoker Type: Cigarettes Amount Used/How Often: 1 PPD Length of Time of Smoking/Using Tobacco: 29 years Have You Smoked in the Last Year: Yes - Immunization History Most Recent Influenza Vaccination: 02/11 Most Recent Tetanus Shot: 2007 Most Recent Pneumonia Vaccination: 4 years ago Review of Systems Constitutional: Negative Skin: Negative Eyes: Negative ENT: Negative Respiratory: Negative Cardiovascular: Negative Gastrointestinal: Negative Genitourinary: Dysuria, Frequency, Urgency Motor: Negative Neurovascular: Negative Musculoskeletal: Negative Neurological: Negative Psychological: Negative All Other Systems Reviewed And Are Negative: Yes Physical Exam Triage Information Reviewed: Yes Vital Signs: Initial Vital Signs Temp 37.3 C 01/26/17 18:32 Pulse 86 01/26/17 18:32 Resp 16 01/26/17 18:32 BP 126/74 01/26/17 18:32 Pulse Ox 100 01/26/17 18:32 Vital Signs Reviewed: Yes Eye Exam: Normal ENT Exam: Normal Dental Exam: Normal Neck exam: Normal Neck: Positive: 1 Respiratory Exam: Normal Cardiovascular Exam: Normal Abdominal Exam: Normal Musculoskeletal Exam: Normal Neurological Exam: Normal Psychological Exam: Normal Skin Exam: Normal Complaint Female Dx - Differential Dx/Diagnosis Provider Diagnoses: URINARY FREQUENCY. URINARY URGENCY Discharge - Discharge Plan Condition: Stable Disposition: HOME Prescriptions: Ciprofloxacin TAB* [Cipro 500 MG TAB*] 500 mg PO BID #14 tab Phenazopyridine 200 mg (NF) [Pyridium 200 MG tab *] 200 mg PO TID PRN #9 tab PRN Reason: Pain Patient Education Materials: Urinary Tract Infection in Women (ED) Referrals: Ortiz Rao MD [Primary Care Provider] -
[2017-01-26] MEDS ORDERED: Phenazopyridine TAB* 100 MG PO ONE (18:59)
== END 2017-01-26 19:08 | disposition home or self-care (01) ==
LOC: UCEAST 18:23
DX: R35.0 Frequency of micturition (principal); R39.15 Urgency of urination; Z32.02 Encounter for pregnancy test, result negative; Z88.1 Allergy status to other antibiotic agents; Z88.5 Allergy status to narcotic agent; F17.210 Nicotine dependence, cigarettes, uncomplicated
CPT/HCPCS: 81003; 84702; 87077; 87086; 87186; 99212; A9270-GY; G0463

== ENCOUNTER 2017-03-19 23:14 | Emergency (ER) | payer OTHER, MEDICARE, MEDICAID ==
[2017-03-19] MEDS ORDERED: NS 0.9% 1000 ML* 2,000 ML IV ONE (23:51)
[2017-03-19] MEDS ORDERED: Ondansetron INJ* 2 MG/ML VIAL IV ONE (23:51)
[2017-03-19] MEDS ORDERED: Insulin REGULAR(*) 1 UNITS UNIT IV ONE (23:51)
[2017-03-20 00:34] LABS: Venous Bicarbonate HCO3 18.4 mmol/L (24-28)
[2017-03-20 00:35] LABS: Hematocrit 41 % (35-47); Hemoglobin 13.7 g/dl (12.0-16.0); Mean Corpuscular HGB Conc 34 g/dl (31-36); Mean Corpuscular Hemoglobin 31 pg (27-31); Mean Corpuscular Volume 92 fL (80-97); Mean Platelet Volume 10 um3 (7.4-10.4); Red Blood Count 4.46 10^6/ul (4.0-5.4); Red Cell Distribution Width 13 % (10.5-15); White Blood Count 7.6 10^3/ul (3.5-10.8)
[2017-03-20 00:47] LABS: ALT 10 U/L (7-52); AST 15 U/L (13-39); Alkaline Phosphatase 51 U/L (34-104); Anion Gap 11 mmol/L (2-11); BUN/Creatinine Ratio 15.3 (8-20); Blood Urea Nitrogen 41 mg/dL (6-24); C Reactive Protein 1.63 mg/L (< 5.00); CO2 Carbon Dioxide 19 mmol/L (22-32); Chloride 97 mmol/L (101-111); EGFR African American 24.8 (>60); EGFR Non-African American 19.3 (>60); Globulin 2.4 g/dL (2-4); Glucose 434 mg/dL (70-100); Indirect Bilirubin 0.3 mg/dL (0.3-1.0); Lipase 49 U/L (11.0-82.0); Magnesium 2.2 mg/dL (1.9-2.7); Phosphorus 3.2 mg/dL (2.5-5.0); Potassium 4.6 mmol/L (3.5-5.0); Sodium 127 mmol/L (133-145); Total Protein 6.4 g/dL (6.4-8.9)
[2017-03-20 00:49] LABS: Troponin I 0.01 ng/mL (<0.04)
[2017-03-20 02:53] LABS: BUN/Creatinine Ratio 17.2 (8-20); Calcium 7.9 mg/dL (8.6-10.3); EGFR African American 29.3 (>60); EGFR Non-African American 22.8 (>60); Potassium 4.1 mmol/L (3.5-5.0)
[2017-03-20] MEDS ORDERED: Insulin LISPRO* 1 UNITS UNIT SUBCUT SCH (04:49)
[2017-03-20] MEDS ORDERED: Cephalexin CAP* 500 MG PO ONE (04:57)
--- NOTE | 2017-03-20 04:57 | ED ---
Nidia Cage Alfonso, scribed for Celestine George MD on 03/20/17 at 0019 . HPI Diabetic - HPI Summary HPI Summary: This patient is a 42 year old F with type 1 DM presenting to [facility] with a chief complaint of hyperglycemia noted earlier today. She states my pump kept on kinking and she feels like her previous DKA. Her blood sugar was reading over 500. The patient rates the pain 0/10 in severity. Symptoms alleviated by nothing. Patient reports racing palpitations, dizziness, cough (4 weeks), ETOH use, and left great toe laceration (with erythema). Patient denies fever, CP, abd pain, vomiting, and urinary symptoms. - History Of Current Complaint Chief Complaint: EDDiabeticProb Hx Obtained From: Patient Hx Last Menstrual Period: pt states on mirena and does not get a mense Onset/Duration: Gradual Onset, Still Present Timing: Constant Character: Alert Aggravating: Alcohol, Other - my pump kept on kinking Alleviating: Nothing Related History: DM I - Allergies/Home Medications Allergies/Adverse Reactions: Allergies Allergy/AdvReac Type Severity Reaction Status Date / Time Hydromorphone [From Dilaudid] Allergy Severe Anaphylatic Verified 01/26/17 18:39 Shock Morphine Allergy Intermediate Hives Verified 01/26/17 18:39 Erythromycin Allergy Mild Rash Verified 01/26/17 18:39 Fluconazole [From Diflucan] Allergy Rash Verified 01/26/17 18:39 OPIATES AdvReac Vomiting Uncoded 01/26/17 01:42 PMH/Surg Hx/FS Hx/Imm Hx Endocrine/Hematology History: Reports: Hx Diabetes - type 1 Denies: Hx Anticoagulant Therapy, Hx Blood Disorders, Hx Blood Transfusions, Hx Bone Marrow Disease, Hx Systemic Lupus Erythematosus, Hx Sickle Cell Disease , Hx Thyroid Disease, Hx Anemia, Hx Unexplained Bleeding, Other Endocrine/ Hematological Disorders Cardiovascular History: Reports: Hx Hypertension, Hx Peripheral Vascular Disease Denies: Hx Aneurysm, Hx Angina, Hx Angioplasty, Hx Auto Implanted Cardiovert Defib, Hx Cardiac Arrest, Hx Cardiomegaly, Hx Congenital Heart Disease, Hx Congestive Heart Failure, Hx Coronary Artery Disease, Hx Deep Vein Thrombosis, Hx Embolism, Hx Hypercholesterolemia, Hx Hypotension, Hx Pacemaker/ICD, Hx Rheumatic Fever, Hx Syncope, Hx Valvular Heart Disease, Other Cardiovascular Problems/Disorders Respiratory History: Reports: Hx Asthma Denies: Hx Chronic Bronchitis, Hx Chronic Obstructive Pulmonary Disease (COPD ), Hx Cystic Fibrosis, Hx Lung Cancer, Hx Pleural Effusion, Hx Pneumonia, Hx Pulmonary Edema, Hx Pulmonary Embolism, Hx Seasonal Allergies, Hx Sleep Apnea, Other Respiratory Problems/Disorders GI History: Reports: Other GI Disorders Denies: Hx Cirrhosis, Hx Diverticulosis, Hx Gall Bladder Disease, Hx Gastroesophageal Reflux Disease, Hx Gastrointestinal Bleed, Hx Hiatal Hernia, Hx Irritable Bowel, Hx Jaundice, Hx Obstructive Bowel, Hx Ileostomy, Hx Pyloric Stenosis, Hx Ulcer History: Reports: Hx Acute Renal Failure, Hx Chronic Renal Failure, Hx Kidney Infection, Hx Renal Disease - ACUTE & CHRONIC RENAL FAILURE/IDDM I Denies: Hx Benign Prostatic Hyperplasia, Hx Dialysis, Hx Kidney Stones, Other Problems/Disorders Musculoskeletal History: Reports: Hx Back Problems Denies: Hx Arthritis, Hx Bursitis, Hx Congenital Bone Abnormalities, Hx Fibromyalgia, Hx Gout, Hx Orthopedic Injury, Hx Osteoporosis, Hx Scoliosis, Hx Tendonitis, Other Musculoskeletal History Sensory History: Reports: Hx Legally Blind, Hx Vision Problem - right retinal detachment Denies: Hx Cataracts, Hx Contacts or Glasses, Hx Eye Injury, Hx Eye Prosthesis, Hx Glaucoma, Hx Macular Degeneration, Hx Deafness, Hx Hearing Aid, Hx Hearing Problem, Other Sensory Impairments Opthamlomology History: Reports: Hx Legally Blind, Hx Vision Problem - right retinal detachment Denies: Hx Cataracts, Hx Contacts or Glasses, Hx Eye Injury, Hx Eye Prosthesis, Hx Glaucoma, Hx Macular Degeneration, Other Sensory Impairments Neurological History: Reports: Hx Migraine, Hx Seizures, Hx Transient Ischemic Attacks (TIA), Other Neuro Impairments/Disorders - hx. of disc disease per pt. Denies: Hx Dementia, Hx Developmental Delay, Hx Headaches, Hx Nerve Disease, Hx Spinal Cord Injury Psychiatric History: Reports: Hx Depression, Hx Inpatient Treatment - [facility] 1999 Denies: Hx Anxiety, Hx Attention Deficit Hyperactivity Disorder, Hx Eating Disorder, Hx Panic Disorder, Hx Post Traumatic Stress Disorder, Hx Community Mental Health Tx, Hx Schizophrenia, Hx Bipolar Disorder, Hx Suicide Attempt, Hx of Violent Episodes Against Others, Hx Substance Abuse, Other Psychiatric Issues /Disorders - Cancer History Hx Chemotherapy: No Hx Radiation Therapy: No Hx Palliative Cancer Treatment: No - Surgical History Surgery Procedure, Year, and Place: tubal ligation. 2 c-sections. bone spur left foot removed, VITRECTOMY RIGHT EYE FOR RETINAL DETACHMENT Hx Anesthesia Reactions: No Infectious Disease History: No Infectious Disease History: Reports: History Other Infectious Disease - HERPES Denies: Hx Clostridium Difficile, Hx Hepatitis, Hx Human Immunodeficiency Virus (HIV), Hx of Known/Suspected MRSA, Hx Shingles, Hx Tuberculosis, Hx Known/ Suspected VRE, Hx Known/Suspected VRSA, Traveled Outside the [place] in Last 30 Days - Family History Known Family History: Positive: Diabetes, Other - POS: CA Negative: Cardiac Disease, Hypertension Family History: Crohn's Dz: half sister - Social History Alcohol Use: Occasionally Hx Substance Use: No Substance Use Type: Reports: None Hx Tobacco Use: Yes Smoking Status (MU): Heavy Every Day Tobacco Smoker Type: Cigarettes Amount Used/How Often: 1 PPD Length of Time of Smoking/Using Tobacco: 29 years Have You Smoked in the Last Year: Yes Review of Systems Positive: Other - hyperglycemia. Negative: Fever Positive: Palpitations. Negative: Chest Pain Positive: Cough Negative: Abdominal Pain, Vomiting Positive: no symptoms reported Positive: Other - left great toe laceration (with erythema) Neurological: Other - Dizziness, ETOH use All Other Systems Reviewed And Are Negative: Yes Physical Exam - Summary Physical Exam Summary: Appearance: Well-appearing, Well-nourished Skin: Warm, 1 cm ulceration at the base of the left great toe with area of surrounding erythema slightly warm and tender to palpation. Eyes: Normal ENT: Dry mucous membranes Neck: Supple, nontender Respiratory: Clear to auscultation Cardiovascular: Normal, Normal distal pulses in all extremities, Normal capillary refill bilaterally Abdomen: Soft, nontender Bowel: Present Musculoskeletal: Strength/ROM Intact Neurological: Normal, A&Ox3 Psychiatric: Normal Triage Information Reviewed: Yes Vital Signs On Initial Exam: Initial Vitals Temp Pulse Resp BP Pulse Ox 98.4 F 101 18 104/60 95 03/19/17 23:21 03/19/17 23:21 03/19/17 23:21 03/19/17 23:21 03/19/17 23:21 Vital Signs Reviewed: Yes Diagnostics - Vital Signs Vital Signs Temp Pulse Resp BP Pulse Ox 03/19/17 23:59 95 14 99 03/19/17 23:45 96 24 99 03/19/17 23:44 103/62 03/19/17 23:21 98.4 F 101 18 104/60 95 - Laboratory Lab Results: Lab Results 03/20/17 03/20/1703/20/17 Range/Units 00:25 00:25 00:25 WBC 7.6 (3.5-10.8) 10^3/ul RBC 4.46 (4.0-5.4) 10^6/ul Hgb 13.7 (12.0-16.0) g/dl Hct 41 (35-47) % MCV 92 (80-97) fL MCH 31 (27-31) pg MCHC 34 (31-36) g/dl RDW 13 (10.5-15) % Plt Count 196 (150-450) 10^3/ul MPV 10 (7.4-10.4) um3 Neut % (Auto) 57.5 (38-83) % Lymph % (Auto) 33.1 (25-47) % [place] % (Auto) 5.6 (1-9) % Eos % (Auto) 2.5 (0-6) % Baso % (Auto) 1.3 (0-2) % Absolute Neuts (auto) 4.4 (1.5-7.7) 10^3/ul Absolute Lymphs (auto) 2.5 (1.0-4.8) 10^3/ul Absolute Monos (auto) 0.4 (0-0.8) 10^3/ul Absolute Eos (auto) 0.2 (0-0.6) 10^3/ul Absolute Basos (auto) 0.1 (0-0.2) 10^3/ul Absolute Nucleated RBC 0.01 10^3/ul Nucleated RBC % 0.1 VBG pH (7.33-7.43) VBG pCO2 (41-51) mmHg VBG pO2 (35-45) mmHg VBG HCO3 (24-28) mmol/L VBG O2 Saturation (70-80) % VBG Base Excess (0-4) Sodium 127 L (133-145) mmol/L Potassium 4.6 (3.5-5.0) mmol/L Chloride 97 L (101-111) mmol/L Carbon Dioxide 19 L (22-32) mmol/L Anion Gap 11 (2-11) mmol/L BUN 41 H (6-24) mg/dL Creatinine 2.68 H (0.51-0.95) mg/dL Est GFR ( Amer) 24.8 (>60) Est GFR (Non-Af Amer) 19.3 (>60) BUN/Creatinine Ratio 15.3 (8-20) Glucose 434 H (70-100) mg/dL Lactic Acid 1.9 (0.5-2.0) mmol/L Calcium 9.0 (8.6-10.3) mg/dL Phosphorus 3.2 (2.5-5.0) mg/dL Magnesium 2.2 (1.9-2.7) mg/dL Total Bilirubin 0.40 (0.2-1.0) mg/dL Direct Bilirubin 0.10 (0.03-0.18) mg/dL Indirect Bilirubin 0.3 (0.3-1.0) mg/dL AST 15 (13-39) U/L ALT 10 (7-52) U/L Alkaline Phosphatase 51 (34-104) U/L Troponin I 0.01 (<0.04) ng/mL C-Reactive Protein 1.63 (< 5.00) mg/L Total Protein 6.4 (6.4-8.9) g/dL Albumin 4.0 (3.2-5.2) g/dL Globulin 2.4 (2-4) g/dL Albumin/Globulin Ratio 1.7 (1-3) Lipase 49 (11.0-82.0) U/L Beta HCG, Quant < 0.60 mIU/mL 03/20/17 03/20/17 Range/Units 00:25 02:30 WBC (3.5-10.8) 10^3/ul RBC (4.0-5.4) 10^6/ul Hgb (12.0-16.0) g/dl Hct (35-47) % MCV (80-97) fL MCH (27-31) pg MCHC (31-36) g/dl RDW (10.5-15) % Plt Count (150-450) 10^3/ul MPV (7.4-10.4) um3 Neut % (Auto) (38-83) % Lymph % (Auto) (25-47) % [place] % (Auto) (1-9) % Eos % (Auto) (0-6) % Baso % (Auto) (0-2) % Absolute Neuts (auto) (1.5-7.7) 10^3/ul Absolute Lymphs (auto) (1.0-4.8) 10^3/ul Absolute Monos (auto) (0-0.8) 10^3/ul Absolute Eos (auto) (0-0.6) 10^3/ul Absolute Basos (auto) (0-0.2) 10^3/ul Absolute Nucleated RBC 10^3/ul Nucleated RBC % VBG pH 7.30 L (7.33-7.43) VBG pCO2 38 L (41-51) mmHg VBG pO2 30 L (35-45) mmHg VBG HCO3 18.4 L (24-28) mmol/L VBG O2 Saturation 66.2 L (70-80) % VBG Base Excess -7.1 L (0-4) Sodium 132 L (133-145) mmol/L Potassium 4.1 (3.5-5.0) mmol/L Chloride 106 (101-111) mmol/L Carbon Dioxide 21 L (22-32) mmol/L Anion Gap 5 (2-11) mmol/L BUN 40 H (6-24) mg/dL Creatinine 2.32 H (0.51-0.95) mg/dL Est GFR ( Amer) 29.3 (>60) Est GFR (Non-Af Amer) 22.8 (>60) BUN/Creatinine Ratio 17.2 (8-20) Glucose 293 H (70-100) mg/dL Lactic Acid (0.5-2.0) mmol/L Calcium 7.9 L (8.6-10.3) mg/dL Phosphorus (2.5-5.0) mg/dL Magnesium (1.9-2.7) mg/dL Total Bilirubin (0.2-1.0) mg/dL Direct Bilirubin (0.03-0.18) mg/dL Indirect Bilirubin (0.3-1.0) mg/dL AST (13-39) U/L ALT (7-52) U/L Alkaline Phosphatase (34-104) U/L Troponin I (<0.04) ng/mL C-Reactive Protein (< 5.00) mg/L Total Protein (6.4-8.9) g/dL Albumin (3.2-5.2) g/dL Globulin (2-4) g/dL Albumin/Globulin Ratio (1-3) Lipase (11.0-82.0) U/L Beta HCG, Quant mIU/mL Result Diagrams: 03/20/17 00:25 03/20/17 02:30 Lab Statement: Any lab studies that have been ordered have been reviewed, and results considered in the medical decision making process. - Radiology CXR Radiology Interpretation Completed By: ED Physician, Radiologist - Pending official interpretation from radiologist. See [facility]. - EKG 0003 Cardiac Rate: NL EKG Rhythm: Sinus Rhythm - BPM 94 EKG Interpretation: Peaked T waves will monitor for hyperkalemia Diabetic Course/Dx - Course Assessment/Plan: hyperglycemia resolved, pt has improved bicarb and no anion gap. Pt feels better after treatment here in ED, no evidence of persistent acidosis, pt given insulin to take with her to self administer and instructed to fu [facility] research associate quality control qc. Agree to and understand discharge instructions. - Diagnoses Provider Diagnoses: Hyperglycemia Discharge - Discharge Plan Condition: Improved Disposition: HOME Patient Education Materials: Diabetic Hyperglycemia (ED) Referrals: Ortiz Huerta MD [Primary Care Provider] - Additional Instructions: 1. PLEASE MAKE AN APPOINTMENT FIRST THING IN THE MORNING TO BE SEEN BY YOUR CARE NURSE RN DR. HUERTA SOON POSSIBLE 2. PLEASE RETURN IMMEDIATELY TO THE ER IF YOU HAVE ANY WORSENING OR CONCERNING SYMPTOMS 3. PLEASE ADMINISTER INSULIN LANTUS AND HUMALOG YOU HAVE PREVIOUSLY ACCORDING TO SLIDING SCALE The documentation as recorded by the Nidia mcdaniel Alfonso accurately reflects the service I personally performed and the decisions made by me, Celestine George MD.
[2017-03-20] MEDS ORDERED: Sulfamethox/Trimethoprim DS 800/160* TAB PO ONE (04:58)
[2017-03-20] MEDS ORDERED: Insulin GLARGINE(*) 1 UNITS UNIT SUBCUT SCH (05:00)
[2017-03-20] MEDS ORDERED: Insulin GLARGINE(*) 1 UNITS UNIT SUBCUT ONE (05:13)
[2017-03-20 05:46] VITALS: BP 101/56
--- NOTE | 2017-03-20 12:16 | RAD ---
INDICATION: Insulin pump dysfunction COMPARISON: Chest x-ray March 17, 2016 TECHNIQUE: Single AP portable view of the chest was obtained. FINDINGS: Image quality is compromised due to the relative inferiority of a portable chest x-ray. The heart and mediastinum exhibit normal size and contour. The lungs are grossly clear. There is no evidence of a large pleural effusion. Visualized bones are normal for the patient's age. IMPRESSION: No radiographic evidence for acute cardiopulmonary abnormality on this portable chest x-ray.
== END 2017-03-20 05:46 | disposition home or self-care (01) ==
LOC: ED 23:14
DX: S91.112A Laceration without foreign body of left great toe without damage to nail, initial encounter (principal); E10.65 Type 1 diabetes mellitus with hyperglycemia; R05 Cough; R00.2 Palpitations; X58.XXXA Exposure to other specified factors, initial encounter; Y93.9 Activity, unspecified; Y92.9 Unspecified place or not applicable
CPT/HCPCS: 36415; 71010; 80048; 80053; 82248; 82803; 83605; 83690; 83735; 84100; 84484; 84702; 85025; 86140; 93005; 96374; 99284; A9270-GY; J2405

== ENCOUNTER 2017-05-27 21:15 | Emergency (ER) | payer OTHER, MEDICARE, MEDICAID ==
[2017-05-27] MEDS ORDERED: Phenazopyridine TAB* 100 MG PO ONE (22:48)
[2017-05-27] MEDS ORDERED: Ramipril CAP* 10 MG PO ONE (22:48)
[2017-05-27] MEDS ORDERED: Ciprofloxacin TAB* 500 MG PO ONE (22:57)
--- NOTE | 2017-05-27 23:00 | ED ---
GI/ HPI - HPI Summary HPI Summary: Patient is a 42-year-old female with history of diabetes, chronic kidney disease , and hypertension who presents to the ED with chief complaint of burning with urination and suprapubic pain for 2 days she has had multiple UTIs in the past and states this feels similar. Slight left sided flank pain. History of kidney stones, although she states this feels different. UTIs for her typically come with back pain per patient. She is also noted to have high blood pressure on arrival at 177/95. She is currently taking ramipril 10 mg but is out of the medication until tomorrow morning. Dr. [place] is aware. She requests Pyridium 100 mg only due to her kidney disease. She denies hematuria. Cloudy, dark urine is noted on arrival. Frequency and urgency also present. Denies chance of STDs and denies vaginal discharge. Other vital signs stable on arrival. - History of Current Complaint Chief Complaint: EDUrogenitalProblems Time Seen by Provider: 05/27/17 21:55 Stated Complaint: POSSIBLE UTI Hx Obtained From: Patient Hx Last Menstrual Period: pt states on mirena and does not get a mense Onset/Duration: Started Hours Ago Timing: Constant Severity: Moderate Current Severity: Moderate Pain Intensity: 7 Location of Pain: Suprapubic Pain Characteristics: Burning Associated Signs and Symptoms: Positive: UTI Symptoms Aggravating Factor(s): Voiding, Straining Alleviating Factor(s): Nothing - Additional Pertinent History Primary Care Physician: [id number] - Allergy/Home Medications Allergies/Adverse Reactions: Allergies Allergy/AdvReac Type Severity Reaction Status Date / Time Hydromorphone [From Dilaudid] Allergy Severe Anaphylatic Verified 05/27/17 21:35 Shock Morphine Allergy Intermediate Hives Verified 05/27/17 21:35 Erythromycin Allergy Mild Rash Verified 05/27/17 21:35 Fluconazole [From Diflucan] Allergy Rash Verified 05/27/17 21:35 OPIATES AdvReac Vomiting Uncoded 05/27/17 21:35 PMH/Surg Hx/FS Hx/Imm Hx Previously Healthy: No - see below Endocrine/Hematology History: Reports: Hx Diabetes - type 1 Denies: Hx Anticoagulant Therapy, Hx Blood Disorders, Hx Blood Transfusions, Hx Bone Marrow Disease, Hx Systemic Lupus Erythematosus, Hx Sickle Cell Disease , Hx Thyroid Disease, Hx Anemia, Hx Unexplained Bleeding, Other Endocrine/ Hematological Disorders Cardiovascular History: Reports: Hx Hypertension, Hx Peripheral Vascular Disease Denies: Hx Aneurysm, Hx Angina, Hx Angioplasty, Hx Auto Implanted Cardiovert Defib, Hx Cardiac Arrest, Hx Cardiomegaly, Hx Congenital Heart Disease, Hx Congestive Heart Failure, Hx Coronary Artery Disease, Hx Deep Vein Thrombosis, Hx Embolism, Hx Hypercholesterolemia, Hx Hypotension, Hx Pacemaker/ICD, Hx Rheumatic Fever, Hx Syncope, Hx Valvular Heart Disease, Other Cardiovascular Problems/Disorders Respiratory History: Reports: Hx Asthma - INHAILER RX. USE NEEDED., Other Respiratory Problems/Disorders Denies: Hx Chronic Bronchitis, Hx Chronic Obstructive Pulmonary Disease (COPD ), Hx Cystic Fibrosis, Hx Lung Cancer, Hx Pleural Effusion, Hx Pneumonia, Hx Pulmonary Edema, Hx Pulmonary Embolism, Hx Seasonal Allergies, Hx Sleep Apnea GI History: Reports: Other GI Disorders Denies: Hx Cirrhosis, Hx Diverticulosis, Hx Gall Bladder Disease, Hx Gastroesophageal Reflux Disease, Hx Gastrointestinal Bleed, Hx Hiatal Hernia, Hx Irritable Bowel, Hx Jaundice, Hx Obstructive Bowel, Hx Ileostomy, Hx Pyloric Stenosis, Hx Ulcer History: Reports: Hx Acute Renal Failure, Hx Chronic Renal Failure, Hx Kidney Infection, Hx Renal Disease - ACUTE & CHRONIC RENAL FAILURE/IDDM I Denies: Hx Benign Prostatic Hyperplasia, Hx Dialysis, Hx Kidney Stones, Other Problems/Disorders Musculoskeletal History: Reports: Hx Back Problems Denies: Hx Arthritis, Hx Bursitis, Hx Congenital Bone Abnormalities, Hx Fibromyalgia, Hx Gout, Hx Orthopedic Injury, Hx Osteoporosis, Hx Scoliosis, Hx Tendonitis, Other Musculoskeletal History Sensory History: Reports: Hx Legally Blind, Hx Vision Problem - right retinal detachment Denies: Hx Cataracts, Hx Contacts or Glasses, Hx Eye Injury, Hx Eye Prosthesis, Hx Glaucoma, Hx Macular Degeneration, Hx Deafness, Hx Hearing Aid, Hx Hearing Problem, Other Sensory Impairments Opthamlomology History: Reports: Hx Legally Blind, Hx Vision Problem - right retinal detachment Denies: Hx Cataracts, Hx Contacts or Glasses, Hx Eye Injury, Hx Eye Prosthesis, Hx Glaucoma, Hx Macular Degeneration, Other Sensory Impairments Neurological History: Reports: Hx Migraine, Hx Seizures, Hx Transient Ischemic Attacks (TIA), Other Neuro Impairments/Disorders - hx. of disc disease per pt. Denies: Hx Dementia, Hx Developmental Delay, Hx Headaches, Hx Nerve Disease, Hx Spinal Cord Injury Psychiatric History: Reports: Hx Depression, Hx Inpatient Treatment - [facility] 1999 Denies: Hx Anxiety, Hx Attention Deficit Hyperactivity Disorder, Hx Eating Disorder, Hx Panic Disorder, Hx Post Traumatic Stress Disorder, Hx Community Mental Health Tx, Hx Schizophrenia, Hx Bipolar Disorder, Hx Suicide Attempt, Hx of Violent Episodes Against Others, Hx Substance Abuse, Other Psychiatric Issues /Disorders - Cancer History Hx Chemotherapy: No Hx Radiation Therapy: No Hx Palliative Cancer Treatment: No - Surgical History Surgery Procedure, Year, and Place: tubal ligation. 2 c-sections. bone spur left foot removed, VITRECTOMY RIGHT EYE FOR RETINAL DETACHMENT Hx Anesthesia Reactions: No - Immunization History Hx Pertussis Vaccination: No Immunizations Up to Date: Unable to Obtain/Confirm Infectious Disease History: No Infectious Disease History: Reports: History Other Infectious Disease - HERPES Denies: Hx Clostridium Difficile, Hx Hepatitis, Hx Human Immunodeficiency Virus (HIV), Hx of Known/Suspected MRSA, Hx Shingles, Hx Tuberculosis, Hx Known/ Suspected VRE, Hx Known/Suspected VRSA, Traveled Outside the [place] in Last 30 Days - Family History Known Family History: Positive: None, Diabetes, Other - POS: [place] Negative: Cardiac Disease, Hypertension Family History: Crohn's Dz: half sister - Social History Occupation: Employed Full-time Lives: With Family Alcohol Use: Occasionally Hx Substance Use: No Substance Use Type: Reports: None Hx Tobacco Use: Yes Smoking Status (MU): Heavy Every Day Tobacco Smoker Type: Cigarettes Amount Used/How Often: 1 PPD Length of Time of Smoking/Using Tobacco: 29 years Have You Smoked in the Last Year: Yes Review of Systems Constitutional: Negative Negative: Fever, Chills, Fatigue, Skin Diaphoresis Eyes: Negative Cardiovascular: Negative Respiratory: Negative Positive: burning, dysuria, frequency, flank pain - L sided Musculoskeletal: Negative Neurological: Negative Psychological: Normal All Other Systems Reviewed And Are Negative: Yes Physical Exam Triage Information Reviewed: Yes Vital Signs On Initial Exam: Initial Vitals Temp Pulse Resp BP Pulse Ox 97.7 F 96 16 177/95 98 05/27/17 21:31 05/27/17 21:31 05/27/17 21:31 05/27/17 21:31 05/27/17 21:31 Vital Signs Reviewed: Yes Appearance: Positive: Well-Appearing, Well-Nourished Skin: Positive: Warm, Skin Color Reflects Adequate Perfusion Head/Face: Positive: Normal Head/Face Inspection Eyes: Positive: EOMI, DODIE, Conjunctiva Clear Neck: Positive: Supple, No Lymphadenopathy Respiratory/Lung Sounds: Positive: Clear to Auscultation, Breath Sounds Present Cardiovascular: Positive: RRR, Pulses are Symmetrical in both Upper and Lower Extremities Musculoskeletal: Positive: Normal, Strength/ROM Intact Neurological: Positive: Speech Normal Psychiatric: Positive: Normal, Affect/Mood Appropriate Diagnostics - Vital Signs Vital Signs Temp Pulse Resp BP Pulse Ox 05/27/17 21:31 97.7 F 96 16 177/95 98 - Laboratory Lab Statement: Any lab studies that have been ordered have been reviewed, and results considered in the medical decision making process. GIGU Course/Dx - Course Course Of Treatment: Patient is evaluated for UTI symptoms as well as hypertension. She is currently out of her Ramipril 10 mg which she takes in the evening. She has been out for 3 days and is noted to be 177/95 on arrival. She is able to pick this medication up tomorrow. Due to her CK D, she is given 100 mg only of Pyridium for comfort. She is given 500 mg ofloxacin in the ED and prescribed 7 days twice a day Cipro. She is given strict return precautions for possible pyelonephritis to develop. Back pain is rated a 2 out of 10. Upon discharge, provider took BP at 156/92. She is stable. - Diagnoses Differential Diagnoses - Female: Urinary Tract Infection Provider Diagnoses: Urinary tract infection, Hypertension Discharge - Discharge Plan Condition: Stable Disposition: HOME Prescriptions: Ciprofloxacin TAB* [Cipro 500 MG TAB*] 500 mg PO BID #14 tab Patient Education Materials: Urinary Tract Infection in Women (DC) Referrals: Allan Rush NP [Primary Care Provider] - Additional Instructions: Dx. Urinary Tract Infection Cipro: Take twice daily for Drink plenty of fluids. Supplement with cranberry or lafleur juice. You may also take an over the counter cranberry supplement. If you have any questions about this, you may ask your pharmacist. If your symptoms have not improved in 1-2 days, if you develop fever, sweats or chills, please go to your emergency room, or call your PCP. Antibiotics were prescribed to you. Please take as directed. Supplement with over the counter probiotics on the opposite schedule of your antibiotic to prevent secondary infections. Do not take together as they may counteract each other. Pyridium: This medication is used to treat pain, burning, increased urination, and increased urge to urinate. These symptoms are usually caused by infection, injury, surgery, catheter, or other conditions that irritate the lower urinary tract. Pyridium will treat the symptoms of a urinary tract infection, but this medication does not treat the actual infection. Take the antibiotic that your doctor prescribes to treat your infection. Pyridium will most likely darken the color of your urine to an orange or red color. This is a normal effect and is not cause for alarm unless you have other symptoms such as pale or yellowed skin, fever, stomach pain, nausea, and vomiting. Darkened urine may also cause stains to your underwear, which may or may not be removed by laundering. It can also permanently stain soft contact lenses, and you should not wear them while taking this medicine.
[2017-05-27 23:28] LABS: Urine Appearance Clear; Urine Blood 1+ (Negative); Urine Color Yellow; Urine Ketones Trace (Negative); Urine Protein 2+(100 mg/dL) (Negative); Urine Specific Gravity 1.017 (1.010-1.030); Urine Urobilinogen Negative (Negative)
[2017-05-28] VITALS: BP 129/85
--- NOTE | 2017-05-30 09:33 | ED ---
Progress - Progress Note Progress Note: Patient's final urine culture reveals greater than 100,000 strep group B. She was diagnosed and discharged with urinary tract infection and started on ciprofloxacin. Patient reports her flank pain and pelvic pressure and dysuria have improved since taking ciprofloxacin. Cipro is typically not effective against strep group B however with the lack of vaginal or urinary symptoms, we will refrain from further treatment at this time. Patient reports "horrible yeast infections" with amoxicillin and can no longer take Diflucan. She reports she will speak with her PCP today to update PCP of new findings of group B strep. Patient actually admits she believes her PCP diagnosed her with this recently also. She is feeling better today has not taken Pyridium since she was in the ED. Denies fevers chills nausea vomiting or diarrhea. She is aware she may call back here if she is unable to reach her PCP in an effort to manage her infection as needed. Course/Dx - Course Course Of Treatment: Patient is evaluated for UTI symptoms as well as hypertension. She is currently out of her Ramipril 10 mg which she takes in the evening. She has been out for 3 days and is noted to be 177/95 on arrival. She is able to pick this medication up tomorrow. Due to her CK D, she is given 100 mg only of Pyridium for comfort. She is given 500 mg ofloxacin in the ED and prescribed 7 days twice a day Cipro. She is given strict return precautions for possible pyelonephritis to develop. Back pain is rated a 2 out of 10. Upon discharge, provider took BP at 156/92. She is stable. - Diagnoses Provider Diagnoses: Urinary tract infection, Hypertension
== END 2017-05-28 | disposition home or self-care (01) ==
LOC: ED 21:15
DX: N39.0 Urinary tract infection, site not specified (principal); B95.1 Streptococcus, group B, as the cause of diseases classified elsewhere; I12.9 Hypertensive chronic kidney disease with stage 1 through stage 4 chronic kidney disease, or unspecified chronic kidney disease; N18.9 Chronic kidney disease, unspecified; E10.22 Type 1 diabetes mellitus with diabetic chronic kidney disease; I73.9 Peripheral vascular disease, unspecified; H54.8 Legal blindness, as defined in USA; Z86.73 Personal history of transient ischemic attack (TIA), and cerebral infarction without residual deficits; F32.9 Major depressive disorder, single episode, unspecified; F17.210 Nicotine dependence, cigarettes, uncomplicated
CPT/HCPCS: 81003; 81015; 87077; 87086; 87184; 87186; 99282; A9270-GY

== ENCOUNTER 2017-09-18 08:58 | Inpatient (IN) | payer MEDICAID, MEDICARE, OTHER ==
[2017-09-18] MEDS ORDERED: Ondansetron INJ* 2 MG/ML VIAL IV ONE (09:08)
[2017-09-18] MEDS ORDERED: Morphine VIAL* 4 MG/ML VIAL (1 ml vial) IV ONE (09:09)
[2017-09-18] MEDS ORDERED: NS 0.9% 1000 ML* 1,000 ML IV ONE ×3 (09:19→12:41)
[2017-09-18] MEDS ORDERED: fentaNYL* 50 MCG/ML 2 ML VIAL (100 MCG VIAL) IV SLOW PU ONE ×2 (09:21→11:03)
[2017-09-18] MEDS ORDERED: fentaNYL* 50 MCG/ML 2 ML VIAL (100 MCG VIAL) ONE (09:22)
[2017-09-18 09:33] LABS: ABS Basophils 0.1 10^3/ul (0-0.2); ABS Eosinophils 0.1 10^3/ul (0-0.6); ABS Lymphocytes 1.4 10^3/ul (1.0-4.8); ABS Monocytes 0.3 10^3/ul (0-0.8); ABS Neutrophils 4.9 10^3/ul (1.5-7.7); ABS Nucleated RBC 0 10^3/ul; Eosinophil % 1.7 % (0-6); Hematocrit 41 % (35-47); Hemoglobin 13.6 g/dl (12.0-16.0); Lymphocyte % 20.7 % (25-47); Mean Corpuscular HGB Conc 33 g/dl (31-36); Mean Corpuscular Hemoglobin 31 pg (27-31); Mean Corpuscular Volume 92 fL (80-97); Mean Platelet Volume 9.1 um3 (7.4-10.4); Nucleated Red Blood Cells % 0; Platelet Count 264 10^3/ul (150-450); Red Blood Count 4.43 10^6/ul (4.0-5.4); Red Cell Distribution Width 14 % (10.5-15); White Blood Count 6.8 10^3/ul (3.5-10.8)
[2017-09-18] MEDS ORDERED: Iodixanol* (CONTRAST) 320 MG/ML 100 ML SDV IV ONE (09:44)
[2017-09-18 09:53] LABS: EGFR Non-African American 26.2 (>60)
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
[2017-09-18 11:01] LABS: Urine Appearance Clear; Urine Blood 3+ (Negative); Urine Color Yellow; Urine Ketones Negative (Negative); Urine Protein 1+(30 mg/dL) (Negative); Urine Specific Gravity 1.005 (1.010-1.030); Urine Urobilinogen Negative (Negative)
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
[2017-09-18] MEDS ORDERED: hydrALAZINE IV* 20 MG/ML VIAL IV SLOW PU PRN (11:45)
[2017-09-18] MEDS ORDERED: Dextrose 50% Syringe 50 ML* 25 GM/50 ML SYRINGE IV PUSH PRN ×2 (11:47→12:32)
[2017-09-18] MEDS ORDERED: Insulin LISPRO* 1 UNITS UNIT SUBCUT ONE (11:47)
[2017-09-18] MEDS ORDERED: Acetaminophen TAB* 325 MG PO PRN (11:49)
[2017-09-18] MEDS ORDERED: Albuterol HFA INHALER* 8 gm MDI INH PRN (11:54)
[2017-09-18] MEDS ORDERED: clonazePAM TAB(*) 0.5 MG PO PRN (11:54)
[2017-09-18] MEDS ORDERED: Sodium Polystyrene ORAL.SOL* 15 GM/60 ML BTL PO ONE (12:00)
[2017-09-18] MEDS ORDERED: Lidocaine PATCH 5%* 1 PATCH TRANSDERM SCH (12:00)
[2017-09-18] MEDS ORDERED: Acetaminophen Codeine #4 (300 mg/60 mg) (NF) TAB PO PRN (12:34)
[2017-09-18] MEDS: Acetaminop/Codeine 30 MG TAB* 1 TAB (300 MG/30 MG) PO PRN ×2 (13:44→19:57)
[2017-09-18] MEDS: Lidocaine PATCH 5%* 1 PATCH TRANSDERM SCH (13:46)
[2017-09-18] MEDS: Heparin VIAL(*) 5000 UNITS/ML VIAL (FIVE THOUSAND) SUBCUT SCH ×2 (13:54→20:58)
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
[2017-09-18] MEDS: NS 0.9% 1000 ML* 1,000 ML IV SCH (15:22)
[2017-09-18] MEDS: Linezolid 600 MG IVPREMIX(*) 600 MG/300 ML BAG IVPB SCH ×2 (15:22→23:55)
[2017-09-18] MEDS: Insulin LISPRO* 1 UNITS UNIT SUBCUT SCH ×4 (17:21→21:06)
[2017-09-18] MEDS ORDERED: Albuterol/Ipratropium NEB.SOL* Albuterol 2.5 MG/Ipratropium 0.5 MG 3 ML INH PRN (18:01)
[2017-09-18] MEDS ORDERED: Albuterol/Ipratropium NEB.SOL* Albuterol 2.5 MG/Ipratropium 0.5 MG 3 ML ONE (18:05)
[2017-09-18] MEDS: Atropine 1% (ORAL/SL)* 15 ML BTL RIGHT EYE SCH (20:58)
[2017-09-18] MEDS: Ramipril CAP* 10 MG PO SCH (20:59)
[2017-09-18] MEDS ORDERED: Lidocaine Patch REMOVE* 1 NOTE MISC SCH (21:00)
[2017-09-18] MEDS: Lidocaine Patch REMOVE* 1 NOTE MISC SCH (21:07)
[2017-09-19] MEDS: Ondansetron ODT TAB* 4 MG SL PRN ×3 (02:48→18:18)
[2017-09-19] MEDS: NS 0.9% 1000 ML* 1,000 ML IV SCH (03:28)
[2017-09-19] MEDS: Heparin VIAL(*) 5000 UNITS/ML VIAL (FIVE THOUSAND) SUBCUT SCH ×3 (05:41→21:45)
[2017-09-19 07:15] LABS: ABS Basophils 0 10^3/ul (0-0.2); ABS Eosinophils 0.1 10^3/ul (0-0.6); ABS Lymphocytes 1.4 10^3/ul (1.0-4.8); ABS Monocytes 0.5 10^3/ul (0-0.8); ABS Neutrophils 5.4 10^3/ul (1.5-7.7); ABS Nucleated RBC 0 10^3/ul; Eosinophil % 1.4 % (0-6); Hematocrit 36 % (35-47); Hemoglobin 11.9 g/dl (12.0-16.0); Lymphocyte % 19.3 % (25-47); Mean Corpuscular HGB Conc 33 g/dl (31-36); Mean Corpuscular Hemoglobin 31 pg (27-31); Mean Corpuscular Volume 93 fL (80-97); Mean Platelet Volume 9.9 um3 (7.4-10.4); Nucleated Red Blood Cells % 0; Platelet Count 212 10^3/ul (150-450); Red Blood Count 3.91 10^6/ul (4.0-5.4); Red Cell Distribution Width 14 % (10.5-15); White Blood Count 7.5 10^3/ul (3.5-10.8)
[2017-09-19] MEDS: Codeine TAB* 30 MG PO PRN ×3 (08:04→17:07)
[2017-09-19] MEDS: Acetaminop/Codeine 30 MG TAB* 1 TAB (300 MG/30 MG) PO PRN ×3 (08:05→17:06)
[2017-09-19] MEDS: BuPROPion XL* 150 MG TAB.XL PO SCH (08:06)
[2017-09-19] MEDS: Atropine 1% (ORAL/SL)* 15 ML BTL RIGHT EYE SCH ×2 (08:06→22:25)
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
[2017-09-19] MEDS: Insulin LISPRO* 1 UNITS UNIT SUBCUT SCH ×8 (09:55→22:23)
[2017-09-19] MEDS: Lidocaine PATCH 5%* 1 PATCH TRANSDERM SCH (13:05)
[2017-09-19] MEDS: Cyclobenzaprine TAB* 10 MG PO PRN (20:03)
[2017-09-19] MEDS ORDERED: Metoclopramide IV* 5 MG/ML 2 ML VIAL IV PRN (20:44)
[2017-09-19] MEDS: Lidocaine Patch REMOVE* 1 NOTE MISC SCH (21:49)
[2017-09-19] MEDS: LORazepam TAB(*) 0.5 MG PO PRN (21:49)
[2017-09-19] MEDS: Ramipril CAP* 10 MG PO SCH (21:51)
[2017-09-20] MEDS: Cyclobenzaprine TAB* 10 MG PO PRN ×2 (00:20→05:18)
[2017-09-20] MEDS: Heparin VIAL(*) 5000 UNITS/ML VIAL (FIVE THOUSAND) SUBCUT SCH (05:19)
[2017-09-20 06:40] LABS: ABS Basophils 0 10^3/ul (0-0.2); ABS Eosinophils 0.3 10^3/ul (0-0.6); ABS Lymphocytes 1.3 10^3/ul (1.0-4.8); ABS Monocytes 0.5 10^3/ul (0-0.8); ABS Neutrophils 5.5 10^3/ul (1.5-7.7); ABS Nucleated RBC 0 10^3/ul; Eosinophil % 3.4 % (0-6); Hematocrit 36 % (35-47); Hemoglobin 11.9 g/dl (12.0-16.0); Lymphocyte % 17.3 % (25-47); Mean Corpuscular HGB Conc 34 g/dl (31-36); Mean Corpuscular Hemoglobin 31 pg (27-31); Mean Corpuscular Volume 92 fL (80-97); Mean Platelet Volume 9.7 um3 (7.4-10.4); Nucleated Red Blood Cells % 0; Platelet Count 195 10^3/ul (150-450); Red Blood Count 3.85 10^6/ul (4.0-5.4); Red Cell Distribution Width 13 % (10.5-15); White Blood Count 7.6 10^3/ul (3.5-10.8)
[2017-09-20 06:54] LABS: EGFR Non-African American 36.1 (>60)
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
[2017-09-20 08:20] VITALS: BP 136/67
[2017-09-20] MEDS: Insulin LISPRO* 1 UNITS UNIT SUBCUT SCH ×4 (10:37→14:13)
[2017-09-20] MEDS: Gabapentin CAP(*) 300 MG PO SCH ×2 (10:38→14:13)
[2017-09-20] MEDS: Lidocaine PATCH 5%* 1 PATCH TRANSDERM SCH (10:38)
[2017-09-20] MEDS: BuPROPion XL* 150 MG TAB.XL PO SCH (10:41)
[2017-09-20] MEDS: Atropine 1% (ORAL/SL)* 15 ML BTL RIGHT EYE SCH (10:41)
[2017-09-20] MEDS: LORazepam TAB(*) 0.5 MG PO PRN (11:21)
--- NOTE | 2017-09-20 12:28 | PN ---
Progress Note - Progress Note Date of Service: 09/20/17 Note: Addendum: Discharge summary: She is not able to perform ADLs and has agreed to a period of subacute rehabilitation at [facility].
== END 2017-09-20 15:10 | DRG 135 ==
LOC: ED 08:58 → MED 11:20 → OBSVTOIN 13:24
PROVIDERS: ADMIT Internal Medicine; ATTEND Internal Medicine
DX: S22.42XA Multiple fractures of ribs, left side, initial encounter for closed fracture (principal); N17.9 Acute kidney failure, unspecified; N39.0 Urinary tract infection, site not specified; H33.21 Serous retinal detachment, right eye; I12.9 Hypertensive chronic kidney disease with stage 1 through stage 4 chronic kidney disease, or unspecified chronic kidney disease; E10.51 Type 1 diabetes mellitus with diabetic peripheral angiopathy without gangrene; J45.909 Unspecified asthma, uncomplicated; E10.22 Type 1 diabetes mellitus with diabetic chronic kidney disease; H35.30 Unspecified macular degeneration; G43.909 Migraine, unspecified, not intractable, without status migrainosus; F17.210 Nicotine dependence, cigarettes, uncomplicated; R56.9 Unspecified convulsions; N18.3 Chronic kidney disease, stage 3 (moderate); F32.9 Major depressive disorder, single episode, unspecified; E86.0 Dehydration; Z96.41 Presence of insulin pump (external) (internal); E10.42 Type 1 diabetes mellitus with diabetic polyneuropathy; E10.319 Type 1 diabetes mellitus with unspecified diabetic retinopathy without macular edema; H54.61 Unqualified visual loss, right eye, normal vision left eye; E87.5 Hyperkalemia; Z88.8 Allergy status to other drugs, medicaments and biological substances; Z88.1 Allergy status to other antibiotic agents; Z88.5 Allergy status to narcotic agent; Z86.73 Personal history of transient ischemic attack (TIA), and cerebral infarction without residual deficits; Z98.51 Tubal ligation status; Z83.3 Family history of diabetes mellitus; Z80.9 Family history of malignant neoplasm, unspecified; Z83.79 Family history of other diseases of the digestive system; Z72.89 Other problems related to lifestyle; V49.9XXA Car occupant (driver) (passenger) injured in unspecified traffic accident, initial encounter; Y92.488 Other paved roadways as the place of occurrence of the external cause; Z79.4 Long term (current) use of insulin; R11.2 Nausea with vomiting, unspecified; T40.2X5A Adverse effect of other opioids, initial encounter; Z65.9 Problem related to unspecified psychosocial circumstances
CPT/HCPCS: 36415; 70450; 71045; 71250; 72125; 74176; 80053; 80307; 80320; 81003; 81015; 82550; 84484; 84702; 85025; 87086; 93005; 94640; 99284; 99406; A9270-GY; G0480; G8978-GP-CK; G8979-GP-CH; J1644; J2020; J2270; J2405; J2765; J3010

== ENCOUNTER 2018-02-06 10:18 | Emergency (ER) | payer OTHER, MEDICAID ==
[2018-02-06 10:29] VITALS: BP 130/85
--- NOTE | 2018-02-06 10:49 | UC ---
Hand/Wrist HPI - HPI Summary HPI Summary: 42 y/o female presents to the urgent care c/o left thumb closed in car door ~8pm last night - History Of Current Complaint Chief Complaint: UCUpperExtremity Stated Complaint: THUMB INJURY Time Seen by Provider: 02/06/18 10:48 Hx Obtained From: Patient Hx Last Menstrual Period: IUD ?: No Onset/Duration: Sudden Onset, Lasting Days - 1 day, Still Present, Worse Since - today Severity Initially: Moderate Severity Currently: Moderate Pain Intensity: 5 Pain Scale Used: 0-10 Numeric Character Of Pain: Throbbing Aggravating Factor(s): Movement, Lifting, Flexion Alleviating Factor(s): Rest, Ice, OTC Meds Associated Signs And Symptoms: Positive: Swelling, Bruising - at the DIPJ of left thumb. Negative: Numbness/Tingling Related History: Dominant Hand Right - Allergies/Home Medications Allergies/Adverse Reactions: Allergies Allergy/AdvReac Type Severity Reaction Status Date / Time erythromycin base Allergy Rash And Verified 02/06/18 10:29 Itching fluconazole [From Diflucan] Allergy Rash And Verified 02/06/18 10:29 Itching hydromorphone [From Dilaudid] Allergy Anaphylatic Verified 02/06/18 10:29 Shock morphine Allergy Anaphylatic Verified 02/06/18 10:29 Shock Opioids - Morphine Analogues Allergy Nausea And Verified 02/06/18 10:29 Vomiting OPIATES AdvReac Vomiting Uncoded 02/06/18 10:29 Home Medications: Home Medications Tretinoin/Emollient Base [Tretinoin 0.05% Emollient Crm] 1 applic TOPICAL DAILY 02/06/18 [History Confirmed 02/06/18] PMH/Surg Hx/FS Hx/Imm Hx Previously Healthy: Yes Endocrine History: Diabetes Cardiovascular History: Hypertension Psychological History: Anxiety, Depression Other History Of: Negative For: Anticoagulant Therapy - Surgical History Surgical History: Yes Surgery Procedure, Year, and Place: tubal ligation. 2 c-sections. bone spur left foot removed, VITRECTOMY RIGHT EYE FOR RETINAL DETACHMENT - Family History Known Family History: Positive: Hypertension, Diabetes, Other - POS: [place] Negative: Cardiac Disease Family History: Crohn's Dz: half sister - Social History Occupation: Disabled Lives: With Family Alcohol Use: Weekly Substance Use Type: None Smoking Status (MU): Heavy Every Day Tobacco Smoker Type: Cigarettes Amount Used/How Often: 1 PPD Length of Time of Smoking/Using Tobacco: 29 years Have You Smoked in the Last Year: Yes - Immunization History Most Recent Influenza Vaccination: 01/2017 Most Recent Tetanus Shot: 2007 Most Recent Pneumonia Vaccination: 4 years ago Review of Systems Constitutional: Negative Skin: Bruising - left thumb w/ swelling and black nail s/p injury Eyes: Negative ENT: Negative Respiratory: Negative Cardiovascular: Negative Gastrointestinal: Negative Genitourinary: Negative Motor: Negative Neurovascular: Negative Musculoskeletal: Decreased ROM - left distal thumb, Other: - left thumb pain s/ p injury closing her door's car Neurological: Negative Psychological: Negative Is Patient Immunocompromised?: No All Other Systems Reviewed And Are Negative: Yes Physical Exam - Summary Physical Exam Summary: Vital Signs Reviewed: Yes General: Well-Appearing, No Pain Distress, Well-Nourished female w/o any apparent distress Eyes: Positive: Conjunctiva Clear - PERRLA, EOMI ENT: Positive: Normal ENT inspection, Hearing grossly normal, Pharynx normal, TMs normal, Uvula midline Neck: Positive: Supple, Nontender, No Lymphadenopathy Respiratory: Positive: Chest non-tender, Lungs clear, Normal breath sounds, No respiratory distress Cardiovascular: Positive: RRR, No Murmur, Pulses Normal, Brisk Capillary Refill Abdomen Description: Positive: Nontender, No Organomegaly, Soft. Negative: CVA Tenderness (R), CVA Tenderness (L) Bowel Sounds: Positive: Present Musculoskeletal: Positive: Strength Intact, Other: Neurological Exam: Normal Musculoskeletal: Positive:Left hand: the LF thumb is without obvious asymmetry or deformity when compared to the R thumb. Left DIPJ w/ moderate ecchymosis and bruising and a subungal hematoma, w/ swelling. Decrease ROM of DIPJ of left first phalanx, no obvious deformity. No bony crepitus. Point tenderness over the same areat. No scaphoid fullness or tenderness to direct palpation or axial load. FROm of all phalanges. Motor/sensory function of ulnar, radial, median nerves intact. Ulnar and radial pulses intact. Psychological Exam: Normal Skin Exam: Normal Triage Information Reviewed: Yes Vital Signs: Initial Vital Signs Temp 98 F 02/06/18 10:25 Pulse 95 02/06/18 10:25 Resp 18 02/06/18 10:25 BP 130/85 02/06/18 10:25 Pulse Ox 100 10/08/18 10:25 Hand/Wrist Course/Dx - Differential Dx/Diagnosis Differential Diagnosis/HQI/PQRI: Contusion, Dislocation, Fracture, Sprain, Strain, Tendonitis Provider Diagnoses: 1- Left thumb pain s/p injury. 2- Left DIPJ avulsion fracture. 3- Left thumb subungal hematoma Discharge - Sign-Out/Discharge Documenting (check all that apply): Patient Departure - D/c home All imaging exams completed and their final reports reviewed: Yes - Discharge Plan Condition: Stable Disposition: HOME Prescriptions: Acetaminophen TAB* [Tylenol TAB*] 650 mg PO Q6H PRN #30 tab PRN Reason: Pain Patient Education Materials: Subungual Hematoma (ED), Finger Fracture (ED) Referrals: Ortiz Rao MD [Primary Care Provider] - 3 Days Juve Li MD [Medical Doctor] - 1 Day Additional Instructions: 1-Please take Tylenol PO q6-8hrs medications as directed to alleviate pain and swelling. 2-Please apply ice, keep your thumb immobilized with the splint. Avoid heavy lifting. 3- Please f/u with Orthopedic Dr Li in 1-2 days for further evaluation and treatment on your thumb fracture. - Billing Disposition and Condition Condition: STABLE Disposition: Home
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
[2018-02-06] MEDS ORDERED: Lidocaine 1%* 5 ML VIAL INJ ONE (11:10)
== END 2018-02-06 11:52 | disposition home or self-care (01) ==
LOC: UCEAST 10:18
DX: S60.012A Contusion of left thumb without damage to nail, initial encounter (principal); W23.0XXA Caught, crushed, jammed, or pinched between moving objects, initial encounter; Y93.89 Activity, other specified; Y92.810 Car as the place of occurrence of the external cause; Z88.1 Allergy status to other antibiotic agents; Z88.5 Allergy status to narcotic agent; F17.210 Nicotine dependence, cigarettes, uncomplicated
CPT/HCPCS: 99212; G0463

== ENCOUNTER 2018-05-16 06:53 | Day surgery (SDC) | payer OTHER, MEDICARE, MEDICAID ==
--- NOTE | 2018-04-27 16:00 | HP ---
PREOPERATIVE HISTORY AND PHYSICAL EXAM: DATE OF ADMISSION/SURGERY: 05/09/18 DATE OF OFFICE VISIT/ENCOUNTER: 04/24/18 ATTENDING SURGEON: Paula Rodriguez MD* (dictated by FARRUKH Read). PROCEDURE: Excision of mass, left hand. HISTORY OF PRESENT ILLNESS: Fabrizio Hayden is a 43-year-old female who complains of a lump in palm of her hand. It has been present for 6 months or more. It is gradually getting bigger and more bothersome. She feels that it causes a numbness in her fingers, but she does also have a diabetic neuropathy. There was no specific injury. The mass has gotten large enough and bothersome enough that she would like to have it surgically removed. PAST MEDICAL HISTORY: 1. Hypertension. 2. Diabetes. 3. Chronic kidney disease. 4. Anxiety/depression. 5. Peripheral neuropathy. 6. Retinopathy. 7. Raynaud's disease. 8. Asthma. PAST SURGICAL HISTORY: 1. Vitrectomy, right eye. 2. . 3. Excision of bone spur on foot. MEDICATIONS: Current Medications: 1. Acetaminophen p.r.n. 2. Albuterol sulfate. 3. Bupropion HCl ER daily. 4. Clonazepam. 5. Cyclobenzaprine HCl. 6. Humalog pump. 7. Ramipril. 8. Tretinoin. ALLERGIES: DILAUDID causes anaphylaxis; MORPHINE causes swelling; OPIATES causes hallucinations; ERYTHROMYCIN causes a rash; FLUCONAZOLE, reaction unknown. FAMILY MEDICAL HISTORY: Diabetes, heart disease, hypertension, cancer. SOCIAL HISTORY: The patient is disabled. She is a current smoker. She smokes a pack per day and has done so for 33 years. She denies recreational drug use. She drinks alcohol on rare occasion. REVIEW OF SYSTEMS: Negative for general, cephalic, cardiovascular, respiratory , GI, . Musculoskeletal: Positive for current complaint along with sciatic nerve pain. Negative integumentary, endocrine. Neurologic is positive for peripheral neuropathy. Hematologic is negative. Infectious Disease: Negative for MRSA, hepatitis C, HIV. PHYSICAL EXAMINATION GENERAL: Well-developed, well-nourished 43-year-old female, in no acute distress. VITAL SIGNS: Height 5 feet 5 inches, weight 130 pounds, pulse rate 89, blood pressure 142/88. MUSCULOSKELETAL: On exam of her left hand, she has a Dupuytren's nodule on the palm of the hand in line with her ring finger. There is no contracture. She can flex and extend her fingers well. She has slight decreased sensation in the tips of her fingers from diabetic neuropathy. ASSESSMENT: Left hand Dupuytren's nodule. PLAN: The patient is scheduled to undergo an excision of mass, left hand with Dr. Rodriguez on 05/09/18. She will return to the office 10 days postop for followup and suture removal. She will use [id number] Tylenol for postoperative pain management. FARRUKH READ [id number]/[facility] #: [id number] NINA
[~2018-05-16 06:53] MED LIST changes: +Buffered Lidocaine 0.9% SYRIN* 5 ML/SYR SYRINGE INTRADERM ONE; +Buffered Lidocaine 1% SYRIN* 1 ML/SYRINGE INTRADERM ONE; +DiMENhydriNATE IV* 50 MG/ML VIAL IV PUSH ONE; +Famotidine IV* 10 MG/ML 2 ML (20 mg) IV ONE; +Lactated Ringers 1000 ML Bag* 1,000 ML IV SCH; -NS 0.9% 1000 ML* 1,000 ML IV ONE; +Ondansetron TAB* 4 MG PO ONE; -cefTRIAXone(*) 1 GM in NS 0.9% 50 ML* 50 ML IVPB ONE
[2018-05-16] MEDS ORDERED: Lidocaine 1% INJ* 10 MG/ML 30 ML SDV ONE (07:18)
[2018-05-16] MEDS ORDERED: Midazolam* 1 MG/ML 5 ML VIAL (5 MG) ONE (08:32)
[2018-05-16] MEDS ORDERED: fentaNYL* 50 MCG/ML 2 ML VIAL (100 MCG VIAL) ONE (08:32)
[2018-05-16] MEDS ORDERED: Naloxone* 0.4 MG/ML 1 ML VIAL IV PRN (09:21)
[2018-05-16 10:27] VITALS: BP 102/60
--- NOTE | 2018-05-16 20:54 | OP ---
DATE OF OPERATION: 05/16/18 [facility] DATE OF : [birth year] SURGEON: Paula Rodriguez MD. ANTIQUE [employer]OCK[employer] REPAIRER: FARRUKH Read ANESTHESIA: Local MAC. PRE-OP DIAGNOSIS: Left hand mass. POST-OP DIAGNOSIS: Left hand mass. OPERATIVE PROCEDURE: Removal of left hand mass. ESTIMATED BLOOD LOSS: Zero. TOURNIQUET TIME: About 10 minutes. INDICATIONS FOR PROCEDURE: Fabrizio is a 43-year-old woman with a painful mass in the palm of her left hand. She presents for removal. DESCRIPTION OF PROCEDURE: The patient was brought to the operating room, was given a sedation anesthetic and a local infiltration of 10 cc of 1% plain lidocaine in the palm of her left hand. The skin of her left hand and forearm were prepped and draped in the usual sterile fashion. The hand and forearm were exsanguinated and the tourniquet elevated to 250 mmHg. A chevron incision was made centered over the mass and we dissected through the subcutaneous tissue. There was a Dupuytren's nodule. It was removed in its entirety and sent for pathology. It was not adherent to the surrounding neurovascular bundles. The wound was irrigated and the skin edges were reapproximated with 4- 0 nylon suture. The wound was dressed with Xeroform, 4x4, Webril, and an Irving wrap. The patient tolerated the procedure well and was brought to the recovery room in good condition. [id number]/[facility] #: [id number] MTDD
== END 2018-05-16 10:48 | disposition home or self-care (01) ==
LOC: OREAST 06:53
PROVIDERS: ATTEND Orthopaedic Surgery
DX: M72.0 Palmar fascial fibromatosis [Dupuytren] (principal); E11.42 Type 2 diabetes mellitus with diabetic polyneuropathy; Z79.4 Long term (current) use of insulin; I12.9 Hypertensive chronic kidney disease with stage 1 through stage 4 chronic kidney disease, or unspecified chronic kidney disease; F41.8 Other specified anxiety disorders; J45.909 Unspecified asthma, uncomplicated; N18.9 Chronic kidney disease, unspecified; Z72.0 Tobacco use; I69.998 Other sequelae following unspecified cerebrovascular disease; H53.8 Other visual disturbances; K21.9 Gastro-esophageal reflux disease without esophagitis
CPT/HCPCS: 88304; J2250; J3010

== ENCOUNTER 2018-05-17 19:33 | Emergency (ER) | payer OTHER, MEDICARE, MEDICAID ==
[2018-05-17 19:41] VITALS: BP 159/90
--- OUTSIDE RECORDS SUMMARY | 2018-05-17 19:47 | XMS REPORT | Continuity of Care Document ---
:1975 External Reference #:[id number] Author Name Juana Zaidi Care Team Providers Name Role Phone Ortiz Rao MD Primary Care Physician Unavailable Payers Type Date Identification Numbers Payment Provider Subscriber Policy Number: [id number] [facility] Fabrizio Hayden PayID: [id number] [address] [place] [address] Effective: 1999 Policy Number: [id number] Medicare Fabrizio Hayden PayID: [id number] [address] [place] [address] Policy Number: [id number] Medicaid Fabrizio Hayden PayID: [id number] [address] [place] [address] Advance Directives Description No Information Available Problems Description No Information Family History Date Family Member(s) Problem(s) Comments General Diabetes General Heart Disease General Hypertension General Cancer Social History Type Date Description Comments Sex Unknown Lives With Children Occupation Disabled ETOH Use Rarely consumes alcohol Tobacco Use Start: Unknown Patient is a current smoker, smokes every day Smoking Status Reviewed: 04/24/18 Patient is a current smoker, smokes every day Exercise Type/Frequency Exercises sporadically Allergies, Adverse Reactions, Alerts Date Description Reaction Status Severity Comments 02/08/2018 Morphine Active 02/08/2018 Hydromorphone Active 02/08/2018 Fluconazole Active 02/08/2018 Opiates Active 02/08/2018 Erythromycin Active Medications Medication Date Status Form Strength Qnty SIG Indications Ordering Provider Albuterol Sulfate Active Unknown 000 Bupropion HCL ER Active Unknown (XL) 000 Clonazepam Active Unknown 000 Cyclobenzaprine Active Unknown HCL 000 Insulin Lispro Active Unknown 000 Ramipril Active Unknown 000 Tretinoin Active Unknown 000 Acetaminophen Active Unknown 000 Cephalexin Active Capsules 500mg three Unknown 000 times a day by mouth Medications Administered in Office Medication Date Status Form Strength Qnty SIG Indications Ordering Provider Depomedrol Administered Injection Michael 80MG 010 Bladimir Oh Immunizations Description No Information Available Vital Signs Date Vital Result Comment 04/24/2018 10:54am Height 65 inches 5'5" Weight 130.00 lb Heart Rate 89 /min BP Systolic 142 mmHg BP Diastolic 88 mmHg Respiratory Rate 18 /min Body Temperature 98.0 F Pain Level 3 BMI (Body Mass Index) 21.6 kg/m2 02/08/2018 9:26am Height 65 inches 5'5" Weight 130.00 lb Heart Rate 97 /min BP Systolic 119 mmHg BP Diastolic 79 mmHg Body Temperature 97.3 F BMI (Body Mass Index) 21.6 kg/m2 Results Description No Information Available Procedures Date Code Description Status 04/22/2017 36325 Removal Devitalization Tissue Wound Less Than Equal 20 Completed Square CM 04/01/2017 17051 Removal Devitalization Tissue Wound Less Than Equal 20 Completed Square CM 04/30/2010 65543 Inject/Drain Joint/Bursa Major W/O US Completed Encounters Type Date Location Provider Dx Diagnosis Office Visit 02/08/2018 [facility] Paula Rodriguez, S67.02xA Crushing injury 8:45a 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 N18.3 Chronic kidney disease, stage 3 (moderate) N39.0 Urinary tract infection, site not specified Office Visit 05/13/2017 9:30a [facility] Gino Thompson, E10.621 Type 1 diabetes [facility] [place] mellitus with foot ulcer S99.922D Unspecified injury of left foot, subsequent encounter Office Visit 04/15/2017 8:00a [facility] Gino Thompson, E10.621 Type 1 diabetes Center [facility] [place] , FACS mellitus with foot ulcer S99.922D Unspecified injury of left foot, subsequent encounter Office Visit 05/07/2015 [facility] Aki Gonzalez, E10.10 Type 1 diabetes 9:12a aaron Melgoza M.D. mellitus with Hospitalists ketoacidosis without coma Office Visit 05/30/2013 [facility] Benny MNikki 250.11 Diabetes W/ 3:22p aaron Melgoza D.O. Ketoacidosis Type Hospitalists I Juvenile Controlled 584.9 Acute Kidney Failure, Unspecified Office Visit 05/11/2010 3:00p [facility]opedic Michael Oh, 726.0 [facility] Capsulitis Shoulder Office Visit 04/30/2010 2:30p [facility] Michael Oh, 726.0 [facility] Capsulitis Shoulder 719.41 Pain Joint Shoulder Region Plan of Treatment Future Appointment(s):05/18/2018 11:30 am - Paula Rodriguez M.D. at [facility]/24/2018 - Paula Rodriguez M.D.M72.0 Palmar fascial fibromatosis [Dupuytren]Follow up:Follow up: 9-10 days postop
--- NOTE | 2018-05-17 20:03 | ED ---
Skin Complaint - HPI Summary HPI Summary: Patient is a 43-year-old female who presents emergency department for evaluation of surgical incision to her right hand. Patient had surgery for palmar fascial fibromatosis yesterday by Dr. Rodriguez. Patient states she took the bandage off this evening and was concerned with the way incision looked and presented to the emergency department. Patient has a history of diabetes and is concerned it may be infected. Patient otherwise denies fever, chills, worsening pain, redness, drainage. Symptoms are mild in severity. No current modifying factors. - History of Current Complaint Chief Complaint: EDLacSutureRecheck Time Seen by Provider: 05/17/18 19:50 Stated Complaint: HAND LAC Hx Obtained From: Patient Hx Last Menstrual Period: IUD Pain Intensity: 0 - Additional Pertinent History Primary Care Physician: [id number] - Allergy/Home Medications Allergies/Adverse Reactions: Allergies Allergy/AdvReac Type Severity Reaction Status Date / Time erythromycin base Allergy Rash And Verified 05/16/18 07:19 Itching fluconazole [From Diflucan] Allergy Rash And Verified 05/16/18 07:19 Itching hydromorphone [From Dilaudid] Allergy Anaphylatic Verified 05/16/18 07:19 Shock morphine Allergy Anaphylatic Verified 05/16/18 07:19 Shock Opioids - Morphine Analogues Allergy Nausea And Verified 05/16/18 07:19 Vomiting OPIATES AdvReac Vomiting Uncoded 05/16/18 07:19 PMH/Surg Hx/FS Hx/Imm Hx Previously Healthy: Yes Endocrine/Hematology History: Reports: Hx Diabetes - DM I insulin dependent, Hx Anemia - BORDERLINE Denies: Hx Anticoagulant Therapy, Hx Blood Disorders, Hx Blood Transfusions, Hx Bone Marrow Disease, Hx Systemic Lupus Erythematosus, Hx Sickle Cell Disease , Hx Thyroid Disease, Hx Unexplained Bleeding, Other Endocrine/Hematological Disorders Cardiovascular History: Reports: Hx Hypertension - ON MEDICATION FOR, Hx Peripheral Vascular Disease Denies: Hx Aneurysm, Hx Angina, Hx Angioplasty, Hx Auto Implanted Cardiovert Defib, Hx Cardiac Arrest, Hx Cardiomegaly, Hx Congenital Heart Disease, Hx Congestive Heart Failure, Hx Coronary Artery Disease, Hx Deep Vein Thrombosis, Hx Embolism, Hx Hypercholesterolemia, Hx Hypotension, Hx Pacemaker/ICD, Hx Rheumatic Fever, Hx Syncope, Hx Valvular Heart Disease, Other Cardiovascular Problems/Disorders Respiratory History: Reports: Hx Asthma - ALBUTEROL INHALER IF NEEDED, Other Respiratory Problems/Disorders Denies: Hx Chronic Bronchitis, Hx Chronic Obstructive Pulmonary Disease (COPD ), Hx Cystic Fibrosis, Hx Lung Cancer, Hx Pleural Effusion, Hx Pneumonia, Hx Pulmonary Edema, Hx Pulmonary Embolism, Hx Seasonal Allergies, Hx Sleep Apnea GI History: Reports: Hx Irritable Bowel - PATIENT STATES FEELS STRESS INDUCED AND WAS IN THE PAST, Other GI Disorders Denies: Hx Cirrhosis, Hx Diverticulosis, Hx Gall Bladder Disease, Hx Gastroesophageal Reflux Disease, Hx Gastrointestinal Bleed, Hx Hiatal Hernia, Hx Jaundice, Hx Obstructive Bowel, Hx Ileostomy, Hx Pyloric Stenosis, Hx Ulcer History: Reports: Hx Acute Renal Failure, Hx Chronic Renal Failure, Hx Kidney Infection, Hx Kidney Stones - HX OF, Hx Renal Disease - ACUTE & CHRONIC RENAL FAILURE/IDDM I Denies: Hx Benign Prostatic Hyperplasia, Hx Dialysis, Other Problems/ Disorders Musculoskeletal History: Reports: Hx Back Problems, Other Musculoskeletal History - RELATED TO BACK INJURY- UNABLE TO WALK FOR 3 YEARS A TEEN Denies: Hx Arthritis, Hx Bursitis, Hx Congenital Bone Abnormalities, Hx Fibromyalgia, Hx Gout, Hx Orthopedic Injury, Hx Osteoporosis, Hx Scoliosis, Hx Tendonitis Sensory History: Reports: Hx Cataracts - RIGHT EYE, Hx Legally Blind, Hx Vision Problem - right retinal detachment Denies: Hx Contacts or Glasses, Hx Eye Injury, Hx Eye Prosthesis, Hx Glaucoma , Hx Macular Degeneration, Hx Deafness, Hx Hearing Aid, Hx Hearing Problem, Other Sensory Impairments Opthamlomology History: Reports: Hx Cataracts - RIGHT EYE, Hx Legally Blind, Hx Vision Problem - right retinal detachment Denies: Hx Contacts or Glasses, Hx Eye Injury, Hx Eye Prosthesis, Hx Glaucoma , Hx Macular Degeneration, Other Sensory Impairments Neurological History: Reports: Hx Headaches, Hx Migraine - RARELY-TREATS WITH A INJ MIGRAINE MEDICATION PER PATIENT, Hx Nerve Disease - NEUROPATHY THROUGHOUT "WHOLE BODY", Hx Seizures - X 1- RELATED TO DIABETIC LOW BLOOD SUGAR, Hx Transient Ischemic Attacks (TIA), Other Neuro Impairments/Disorders - RIGHT EYE WITH NO VISION Denies: Hx Dementia, Hx Developmental Delay, Hx Spinal Cord Injury Psychiatric History: Reports: Hx Anxiety - NO MEDICATION FOR AT THIS TIME, Hx Depression - NO MEDICATION FOR AT THIS TIME, Hx Inpatient Treatment - [facility] 1999 Denies: Hx Attention Deficit Hyperactivity Disorder, Hx Eating Disorder, Hx Panic Disorder, Hx Post Traumatic Stress Disorder, Hx Community Mental Health Tx , Hx Schizophrenia, Hx Bipolar Disorder, Hx Suicide Attempt, Hx of Violent Episodes Against Others, Hx Substance Abuse, Other Psychiatric Issues/Disorders - Cancer History Hx Chemotherapy: No Hx Radiation Therapy: No Hx Palliative Cancer Treatment: No - Surgical History Surgery Procedure, Year, and Place: tubal ligation. 2 c-sections. bone spur left foot removed, VITRECTOMY RIGHT EYE FOR RETINAL DETACHMENT Hx Anesthesia Reactions: No Infectious Disease History: No Infectious Disease History: Reports: History Other Infectious Disease - HERPES Denies: Hx Clostridium Difficile, Hx Hepatitis, Hx Human Immunodeficiency Virus (HIV), Hx of Known/Suspected MRSA, Hx Shingles, Hx Tuberculosis, Hx Known/ Suspected VRE, Hx Known/Suspected VRSA, Traveled Outside the [place] in Last 30 Days - Family History Known Family History: Positive: None, Hypertension, Diabetes, Other - POS: [place] Negative: Cardiac Disease Family History: Crohn's Dz: half sister - Social History Occupation: Unemployed Lives: With Family Alcohol Use: Occasionally Hx Substance Use: No Substance Use Type: Reports: None Hx Tobacco Use: Yes Smoking Status (MU): Heavy Every Day Tobacco Smoker Type: Cigarettes Amount Used/How Often: 1 PPD X 32 YEARS Length of Time of Smoking/Using Tobacco: 29 years Have You Smoked in the Last Year: Yes Review of Systems Constitutional: Negative Negative: Fever, Chills Positive: Other - surgical incision right hand All Other Systems Reviewed And Are Negative: Yes Physical Exam Triage Information Reviewed: Yes Vital Signs On Initial Exam: Initial Vitals Temp Pulse Resp BP Pulse Ox 98.1 F 97 20 159/90 100 05/17/18 19:37 05/17/18 19:37 05/17/18 19:37 05/17/18 19:37 05/17/18 19:37 Vital Signs Reviewed: Yes Appearance: Positive: Well-Appearing - patient sitting on bed in no acute distress. Anxious. Skin: Positive: Warm, Dry Head/Face: Positive: Normal Head/Face Inspection Eyes: Positive: Normal, EOMI Neck: Positive: Supple Musculoskeletal: Positive: Other - Small surgical incision noted to the palmar aspect of the right hand with sutures in place. There is no drainage, redness, swelling to the area. No wound dehiscence. Neurological: Positive: Normal, CN Intact II-III Psychiatric: Positive: Anxious Diagnostics - Vital Signs Vital Signs Temp Pulse Resp BP Pulse Ox 05/17/18 19:37 98.1 F 97 20 159/90 100 - Laboratory Lab Statement: Any lab studies that have been ordered have been reviewed, and results considered in the medical decision making process. Course/Dx - Course Course Of Treatment: Patient presenting for evaluation of surgical incision. On exam there are no signs of infection and wound is well appearing. Wound was redressed. Patient was reassured. Advised basic wound care. Advised to follow -up with her surgeon as scheduled. To return to the ER call her surgeon for increased pain, redness, swelling, drainage. Patient understands and agrees with plan. - Differential Diagnoses - Skin Complaint Differential Diagnoses: Abscess, Angioedema - Diagnoses Provider Diagnoses: Presence of surgical incision Discharge - Sign-Out/Discharge Documenting (check all that apply): Patient Departure - Discharge Plan Condition: Good Disposition: HOME Patient Education Materials: Care For Your Stitches (ED) Referrals: Paula Rodriguez MD [Medical Doctor] - Additional Instructions: Follow up with Dr. Rodriguez as scheduled Keep wound clean and dry Return to ER for call Dr. Rodriguez's office for redness, swelling, increased pain, or drainage from wound - Billing Disposition and Condition Condition: GOOD Disposition: Home
== END 2018-05-17 20:11 | disposition home or self-care (01) ==
LOC: ED 19:33
DX: Z48.01 Encounter for change or removal of surgical wound dressing (principal); F17.210 Nicotine dependence, cigarettes, uncomplicated; E10.9 Type 1 diabetes mellitus without complications; Z79.4 Long term (current) use of insulin; I10 Essential (primary) hypertension
CPT/HCPCS: 99281

== ENCOUNTER 2018-10-19 01:35 | Emergency (ER) | payer MEDICARE, MEDICAID ==
--- NOTE | 2018-10-19 02:19 | ED ---
HPI Diabetic - HPI Summary HPI Summary: A 43 y/o female brought in by [facility] ambulance presents to [facility] with a chief complaint of low blood glucose today. Per triage note, "Pt took a total of 60Grams of oral glucose. EMS check blood sugar on arrival 81. Second check blood sugar was 87. Pt is now vomiting which she states is normal after an episode of hypoglycemia." In the ED the patient's POC glucose was 112 at 01:43. At triage the patient rated her pain as a 4/10 in severity. She reports that she was not using more insulin than usual, and was eating normally, last eating around 18:00 10/18/18. Pt also reports N/V. - History Of Current Complaint Chief Complaint: EDDiabeticProb Time Seen by Provider: 10/19/18 01:50 Hx Obtained From: Patient, EMS Hx Last Menstrual Period: IUD Onset/Duration: Sudden Onset, Lasting Hours, Still Present Timing: Hours Severity Initially: Moderate Severity Currently: Moderate Character: Alert Aggravating: Nothing Alleviating: Nothing Associated Signs & Symptoms: Chills, Nausea, Vomiting - Allergies/Home Medications Allergies/Adverse Reactions: Allergies Allergy/AdvReac Type Severity Reaction Status Date / Time erythromycin base Allergy Rash And Verified 05/16/18 07:19 Itching fluconazole [From Diflucan] Allergy Rash And Verified 05/16/18 07:19 Itching hydromorphone [From Dilaudid] Allergy Anaphylatic Verified 05/16/18 07:19 Shock morphine Allergy Anaphylatic Verified 05/16/18 07:19 Shock Opioids - Morphine Analogues Allergy Nausea And Verified 05/16/18 07:19 Vomiting OPIATES AdvReac Vomiting Uncoded 05/16/18 07:19 PMH/Surg Hx/FS Hx/Imm Hx Endocrine/Hematology History: Reports: Hx Diabetes - DM I insulin dependent, Hx Anemia - BORDERLINE Denies: Hx Anticoagulant Therapy, Hx Blood Disorders, Hx Blood Transfusions, Hx Bone Marrow Disease, Hx Systemic Lupus Erythematosus, Hx Sickle Cell Disease , Hx Thyroid Disease, Hx Unexplained Bleeding, Other Endocrine/Hematological Disorders Cardiovascular History: Reports: Hx Hypertension - ON MEDICATION FOR, Hx Peripheral Vascular Disease Denies: Hx Aneurysm, Hx Angina, Hx Angioplasty, Hx Auto Implanted Cardiovert Defib, Hx Cardiac Arrest, Hx Cardiomegaly, Hx Congenital Heart Disease, Hx Congestive Heart Failure, Hx Coronary Artery Disease, Hx Deep Vein Thrombosis, Hx Embolism, Hx Hypercholesterolemia, Hx Hypotension, Hx Pacemaker/ICD, Hx Rheumatic Fever, Hx Syncope, Hx Valvular Heart Disease, Other Cardiovascular Problems/Disorders Respiratory History: Reports: Hx Asthma - ALBUTEROL INHALER IF NEEDED, Other Respiratory Problems/Disorders Denies: Hx Chronic Bronchitis, Hx Chronic Obstructive Pulmonary Disease (COPD ), Hx Cystic Fibrosis, Hx Lung Cancer, Hx Pleural Effusion, Hx Pneumonia, Hx Pulmonary Edema, Hx Pulmonary Embolism, Hx Seasonal Allergies, Hx Sleep Apnea GI History: Reports: Hx Irritable Bowel - PATIENT STATES FEELS STRESS INDUCED AND WAS IN THE PAST, Other GI Disorders Denies: Hx Cirrhosis, Hx Diverticulosis, Hx Gall Bladder Disease, Hx Gastroesophageal Reflux Disease, Hx Gastrointestinal Bleed, Hx Hiatal Hernia, Hx Jaundice, Hx Obstructive Bowel, Hx Ileostomy, Hx Pyloric Stenosis, Hx Ulcer History: Reports: Hx Acute Renal Failure, Hx Chronic Renal Failure, Hx Kidney Infection, Hx Kidney Stones - HX OF, Hx Renal Disease - ACUTE & CHRONIC RENAL FAILURE/IDDM I Denies: Hx Benign Prostatic Hyperplasia, Hx Dialysis, Other Problems/ Disorders Musculoskeletal History: Reports: Hx Back Problems, Other Musculoskeletal History - RELATED TO BACK INJURY- UNABLE TO WALK FOR 3 YEARS A TEEN Denies: Hx Arthritis, Hx Bursitis, Hx Congenital Bone Abnormalities, Hx Fibromyalgia, Hx Gout, Hx Orthopedic Injury, Hx Osteoporosis, Hx Scoliosis, Hx Tendonitis Sensory History: Reports: Hx Cataracts - RIGHT EYE, Hx Legally Blind, Hx Vision Problem - right retinal detachment Denies: Hx Contacts or Glasses, Hx Eye Injury, Hx Eye Prosthesis, Hx Glaucoma , Hx Macular Degeneration, Hx Deafness, Hx Hearing Aid, Hx Hearing Problem, Other Sensory Impairments Opthamlomology History: Reports: Hx Cataracts - RIGHT EYE, Hx Legally Blind, Hx Vision Problem - right retinal detachment Denies: Hx Contacts or Glasses, Hx Eye Injury, Hx Eye Prosthesis, Hx Glaucoma , Hx Macular Degeneration, Other Sensory Impairments Neurological History: Reports: Hx Headaches, Hx Migraine - RARELY-TREATS WITH A INJ MIGRAINE MEDICATION PER PATIENT, Hx Nerve Disease - NEUROPATHY THROUGHOUT "WHOLE BODY", Hx Seizures - X 1- RELATED TO DIABETIC LOW BLOOD SUGAR, Hx Transient Ischemic Attacks (TIA), Other Neuro Impairments/Disorders - RIGHT EYE WITH NO VISION Denies: Hx Dementia, Hx Developmental Delay, Hx Spinal Cord Injury Psychiatric History: Reports: Hx Anxiety - NO MEDICATION FOR AT THIS TIME, Hx Depression - NO MEDICATION FOR AT THIS TIME, Hx Inpatient Treatment - [facility] 1999 Denies: Hx Attention Deficit Hyperactivity Disorder, Hx Eating Disorder, Hx Panic Disorder, Hx Post Traumatic Stress Disorder, Hx Community Mental Health Tx , Hx Schizophrenia, Hx Bipolar Disorder, Hx Suicide Attempt, Hx of Violent Episodes Against Others, Hx Substance Abuse, Other Psychiatric Issues/Disorders - Cancer History Hx Chemotherapy: No Hx Radiation Therapy: No Hx Palliative Cancer Treatment: No - Surgical History Surgery Procedure, Year, and Place: tubal ligation. 2 c-sections. bone spur left foot removed, VITRECTOMY RIGHT EYE FOR RETINAL DETACHMENT Hx Anesthesia Reactions: No Infectious Disease History: No Infectious Disease History: Reports: History Other Infectious Disease - HERPES Denies: Hx Clostridium Difficile, Hx Hepatitis, Hx Human Immunodeficiency Virus (HIV), Hx of Known/Suspected MRSA, Hx Shingles, Hx Tuberculosis, Hx Known/ Suspected VRE, Hx Known/Suspected VRSA, Traveled Outside the [place] in Last 30 Days - Family History Known Family History: Positive: Hypertension, Diabetes, Other - POS: [place] Negative: Cardiac Disease Family History: Crohn's Dz: half sister - Social History Alcohol Use: Occasionally Hx Substance Use: No Substance Use Type: Reports: None Hx Tobacco Use: Yes Smoking Status (MU): Heavy Every Day Tobacco Smoker Type: Cigarettes Amount Used/How Often: 1 PPD X 32 YEARS Length of Time of Smoking/Using Tobacco: 29 years Have You Smoked in the Last Year: Yes Review of Systems Positive: Chills, Other - positive: low blood glucose [employer]. Negative: Fever Positive: Vomiting, Nausea All Other Systems Reviewed And Are Negative: Yes Physical Exam - Summary Physical Exam Summary: VITAL SIGNS: Reviewed. GENERAL: Patient is a well-developed and nourished FEMALE who is lying comfortable in the stretcher. Patient is not in any acute respiratory distress. The patient is feeling cold and having chills. HEAD AND FACE: No signs of trauma. No ecchymosis, hematomas or skull depressions. No sinus tenderness. EYES: PERRLA, EOMI x 2, No injected conjunctiva, no nystagmus. EARS: Hearing grossly intact. Ear canals and tympanic membranes are within normal limits. MOUTH: Oropharynx within normal limits. NECK: Supple, trachea is midline, no adenopathy, no JVD, no carotid bruit, no c- spine tenderness, neck with full ROM CHEST: Symmetric, no tenderness at palpation LUNGS: Clear to auscultation bilaterally. No wheezing or crackles. CVS: Regular rate and rhythm, S1 and S2 present, no murmurs or gallops appreciated. ABDOMEN: Soft, non-tender. No signs of distention. No rebound no guarding, and no masses palpated. Bowel sounds are normal. EXTREMITIES: FROM in all major joints, no edema, no cyanosis or clubbing. NEURO: Alert and oriented x 3. No acute neurological deficits. Speech is normal and follows commands. SKIN: Dry and warm Triage Information Reviewed: Yes Vital Signs On Initial Exam: Initial Vitals Temp Pulse Resp BP Pulse Ox 96.7 F 107 20 216/124 100 10/19/18 01:37 10/19/18 01:37 10/19/18 01:37 10/19/18 01:37 10/19/18 01:37 Vital Signs Reviewed: Yes Diagnostics - Vital Signs Vital Signs Temp Pulse Resp BP Pulse Ox 10/19/18 01:37 96.7 F 107 20 216/124 100 - Laboratory Lab Results: Lab Results 10/19/18 Range/Units 01:43 POC Glucose (mg/dL) 112 H (70-100) mg/dL Lab Statement: Any lab studies that have been ordered have been reviewed, and results considered in the medical decision making process. Diabetic Course/Dx - Course Course Of Treatment: A 43 y/o female brought in by [facility] ambulance presents to [facility] with a chief complaint of low blood glucose today. The physical exam revealed that the patient is feeling cold and having chills. In the ED course the patient was given Tylenol PO. POC glucose of 153 at 02:30. The patient will be discharged and was instructed to follow up with her PCP. The patient is agreeable with this plan. - Diagnoses Provider Diagnoses: Hypoglycemia Discharge - Sign-Out/Discharge Documenting (check all that apply): Patient Departure - DC Patient Received Moderate/Deep Sedation with Procedure: No - Discharge Plan Condition: Stable Disposition: HOME Patient Education Materials: Hypoglycemia in a Person with Diabetes (ED) Referrals: Ortiz Rao MD [Primary Care Provider] - (2-3 days) Additional Instructions: PLEASE RETURN TO THE ED IMMEDIATELY FOR WORSENING OR CONCERNING SYMPTOMS. - Billing Disposition and Condition Condition: STABLE Disposition: Home - Attestation Statements Document Initiated by Scribe: Yes Documenting Scribe: Aftab Lopez Provider For Whom Scribe is Documenting (Include Credential): Rachel Stafford MD Scribe Attestation: I, Aftab Lopez, scribed for Rachel Stafford MD on 10/19/18 at 0642. Scribe Documentation Reviewed: Yes Provider Attestation: The documentation as recorded by the kalieeAftab accurately reflects the service I personally performed and the decisions made by me, Rachel Stafford MD Status of Scribe Document: Viewed
[2018-10-19] MEDS ORDERED: Acetaminophen TAB* 325 MG PO ONE (03:04)
[2018-10-19 03:37] VITALS: BP 152/78
[2018-10-19] MEDS ORDERED: Insulin REGULAR(*) 1 UNITS UNIT SUBCUT ONE (03:38)
== END 2018-10-19 03:57 | disposition home or self-care (01) ==
LOC: ED 01:35
DX: E10.649 Type 1 diabetes mellitus with hypoglycemia without coma (principal); Z79.4 Long term (current) use of insulin; R11.2 Nausea with vomiting, unspecified; R68.83 Chills (without fever); I10 Essential (primary) hypertension; J45.909 Unspecified asthma, uncomplicated; E10.22 Type 1 diabetes mellitus with diabetic chronic kidney disease; N18.9 Chronic kidney disease, unspecified; Z88.1 Allergy status to other antibiotic agents; Z88.5 Allergy status to narcotic agent; F17.210 Nicotine dependence, cigarettes, uncomplicated
CPT/HCPCS: 96372; 99283

== ENCOUNTER 2020-04-23 08:40 | Inpatient (IN) ==
[2020-04-23] MEDS ORDERED: NS 0.9% 1000 ml BAG 1,000 ML IV ONE ×2 (08:43→14:24)
[2020-04-23] MEDS ORDERED: Ondansetron 4 mg VIAL 2 MG/ML 2 ml VIAL IV ONE ×2 (09:00→13:19)
[2020-04-23] MEDS: NS 0.9% 1000 ml BAG 2,000 ML IV ONE ×2 (09:24→09:25)
[2020-04-23 09:42] LABS: ABS Basophils 0.1 10^3/ul (0-0.2); ABS Lymphocytes 0.6 10^3/ul (1.0-4.8); ABS Monocytes 0.3 10^3/ul (0-0.8); ABS Neutrophils 12.9 10^3/ul (1.5-7.7); Hematocrit 41 % (35-47); Hemoglobin 13.4 g/dL (12.0-16.0); Mean Corpuscular HGB Conc 33 g/dL (31-36); Mean Corpuscular Hemoglobin 32 pg (27-31); Mean Corpuscular Volume 97 fL (80-97); Mean Platelet Volume 9.5 fL (7.4-10.4); Platelet Count 298 10^3/uL (150-450); Red Blood Count 4.22 10^6 /uL (3.70-4.87); Red Cell Distribution Width 13 % (10-15); White Blood Count 13.9 10^3/uL (3.5-10.8)
[2020-04-23 09:59] LABS: ALT 8 U/L (7-52); AST 20 U/L (13-39); Albumin 4.2 g/dL (3.2-5.2); Albumin/Globulin Ratio 1.6 (1-3); Alkaline Phosphatase 58 U/L (34-104); Anion Gap 8 mmol/L (2-11); BUN/Creatinine Ratio 18.8 (8-20); Blood Urea Nitrogen 42 mg/dL (6-24); C Reactive Protein < 1.00 mg/L (<8.01); CO2 Carbon Dioxide 28 mmol/L (22-32); Chloride 105 mmol/L (101-111); EGFR African American 28.5 (>60); EGFR Non-African American 23.6 (>60); Globulin 2.7 g/dL (2-4); Glucose 52 mg/dL (70-100); Potassium 4.8 mmol/L (3.5-5.0); Sodium 141 mmol/L (135-145); Total Protein 6.9 g/dL (6.4-8.9)
[2020-04-23] MEDS ORDERED: Dextrose 50% Syringe 50 ml 25 GM/50 ML SYRINGE IV PUSH ONE (10:20)
[2020-04-23 15:34] LABS: Urine Appearance Clear; Urine Bilirubin Negative (Negative); Urine Blood 1+ (Negative); Urine Color Straw; Urine Glucose 3+(>=500 mg/dL) (Negative); Urine Ketones Trace (Negative); Urine Nitrite Negative (Negative); Urine Protein 2+(100 mg/dL) (Negative); Urine Specific Gravity 1.008 (1.010-1.030); Urine Urobilinogen Negative (Negative)
[2020-04-23 15:43] LABS: Urine Bacteria 1+ (Absent); Urine Red Blood Cell Trace(0-2/hpf) (Absent); Urine Squamous Epithelial Cell Present (Absent); Urine White Blood Cell Trace(0-5/hpf) (Absent)
[2020-04-23] MEDS ORDERED: Prochlorperazine 5 mg/ml 2 ml VIAL (10 mg) IV ONE (18:56)
[2020-04-23] MEDS ORDERED: Ondansetron 4 mg VIAL 2 MG/ML 2 ml VIAL IV PRN (18:57)
[2020-04-23 19:09] LABS: Magnesium 1.6 mg/dL (1.9-2.7); Phosphorus 3.5 mg/dL (2.5-5.0)
[2020-04-23] MEDS ORDERED: Dextrose 50% Syringe 50 ml 25 GM/50 ML SYRINGE IV PUSH PRN (19:17)
[2020-04-23] MEDS ORDERED: Magnesium Sulfate IV 3 GM in NS 0.9% 100 ml BAG 100 ML IVPB ONE (19:25)
[2020-04-23] MEDS ORDERED: Insulin LISPRO* FOR INSULIN PUMP SUBCUT SCH (20:00)
[2020-04-23] MEDS ORDERED: Albuterol HFA INHALER 8 gm MDI INH PRN (21:38)
[2020-04-23] MEDS: Lactated Ringers 1000 ml BAG 1,000 ML IV SCH (23:44)
[2020-04-24 06:28] LABS: ABS Basophils 0.1 10^3/ul (0-0.2); ABS Eosinophils 0.1 10^3/ul (0-0.6); ABS Lymphocytes 2.6 10^3/ul (1.0-4.8); ABS Monocytes 0.6 10^3/ul (0-0.8); ABS Neutrophils 10.2 10^3/ul (1.5-7.7); Eosinophil % 0.5 %; Hematocrit 35 % (35-47); Hemoglobin 11.5 g/dL (12.0-16.0); Lymphocyte % 19.3 %; Mean Corpuscular HGB Conc 33 g/dL (31-36); Mean Corpuscular Hemoglobin 32 pg (27-31); Mean Corpuscular Volume 99 fL (80-97); Mean Platelet Volume 10.1 fL (7.4-10.4); Platelet Count 216 10^3/uL (150-450); Red Blood Count 3.56 10^6 /uL (3.70-4.87); Red Cell Distribution Width 13 % (10-15); White Blood Count 13.6 10^3/uL (3.5-10.8)
[2020-04-24 06:45] LABS: Calcium 8.3 mg/dL (8.6-10.3); EGFR African American 33.3 (>60); EGFR Non-African American 27.5 (>60); Magnesium 2.3 mg/dL (1.9-2.7); Potassium 4.9 mmol/L (3.5-5.0)
[2020-04-24] MEDS ORDERED: Mometasone/Formoter 200/5 MDI INH SCH (09:00)
[2020-04-24] MEDS: Lactated Ringers 1000 ml BAG 1,000 ML IV SCH (09:51)
[2020-04-24 12:00] VITALS: BP 113/54
[2020-04-24 14:46] LABS: BUN/Creatinine Ratio 19.7 (8-20); Calcium 8.6 mg/dL (8.6-10.3); EGFR African American 27.8 (>60); Potassium 4.3 mmol/L (3.5-5.0)
== END 2020-04-24 17:30 | disposition home or self-care (01) | DRG 637 ==
LOC: ED 08:40 → MED 08:40
PROVIDERS: ADMIT Internal Medicine; ATTEND Internal Medicine

== ENCOUNTER 2021-05-06 19:45 | Inpatient (IN) ==
[2021-05-06] MEDS ORDERED: NS 0.9% 1000 ml BAG 1,000 ML IV ONE ×2 (20:03→22:07)
[2021-05-06 21:21] LABS: Albumin 4.3 g/dL (3.2-5.2); Calcium 9.2 mg/dL (8.6-10.3); Chloride 87 mmol/L (101-111); Sodium 124 mmol/L (135-145)
[2021-05-06 21:27] LABS: ALT 13 U/L (7-52); Albumin/Globulin Ratio 1.6 (1-3); Alkaline Phosphatase 94 U/L (35-149); Blood Urea Nitrogen 52 mg/dL (6-24); C Reactive Protein 2.67 mg/L (<8.01); Globulin 2.7 g/dL (2-4); eGFR CKD-EPI 19.8 (>60)
[2021-05-06 21:32] LABS: Venous Bicarbonate HCO3 11.7 mmol/L (24-28)
[2021-05-06 21:34] LABS: Anion Gap 28 mmol/L (2-11); CO2 Carbon Dioxide 9 mmol/L (22-32)
[2021-05-06 21:34] LABS: ABS Basophils 0.1 10^3/ul (0-0.2); ABS Lymphocytes 0.6 10^3/ul (1.0-4.8); ABS Monocytes 0.6 10^3/ul (0-0.8); ABS Neutrophils 12.8 10^3/ul (1.5-7.7); Hematocrit 39 % (35-47); Hemoglobin 12.2 g/dL (12.0-16.0); Lymphocyte % 4.4 %; Mean Corpuscular HGB Conc 32 g/dL (31-36); Mean Corpuscular Hemoglobin 31 pg (27-31); Mean Corpuscular Volume 99 fL (80-97); Mean Platelet Volume 10.4 fL (7.4-10.4); Nucleated Red Blood Cells % 0.1; Platelet Count 222 10^3/uL (150-450); Red Blood Count 3.93 10^6 /uL (3.70-4.87); Red Cell Distribution Width 15 % (10-15); White Blood Count 14.1 10^3/uL (3.5-10.8)
[2021-05-06] MEDS ORDERED: Albuterol/Ipratropium NEB.SOL (2.5/0.5 MG) 3 ML NEB.SOLN INH ONE (21:42)
[2021-05-06] MEDS ORDERED: Ondansetron 4 mg VIAL 2 MG/ML 2 ml VIAL IV ONE (21:45)
[2021-05-06] MEDS ORDERED: Insulin Infusion 100unit/100mL 100 UNIT/100 ML BAG IV SCH (21:46)
[2021-05-06] MEDS ORDERED: Metoclopramide 5 MG/ML VIAL (10 mg) IV ONE (21:50)
[2021-05-06 22:03] LABS: Glucose 825 mg/dL (70-100)
[2021-05-06 22:21] LABS: Troponin I 0.02 ng/mL (<0.03)
[2021-05-06 22:23] LABS: Alcohol, S < 13 mg/dL (<13)
[2021-05-06 23:18] LABS: Potassium 7.1 mmol/L (3.5-5.0)
[2021-05-06] MEDS ORDERED: SODIUM ZIRCONIUM CYCLOSILICATE 10 GM PACKET PO ONE (23:32)
[2021-05-06] MEDS ORDERED: NORMOSOL-R pH 7.4 1000 mL BAG 1,000 ML IV SCH (23:45)
[2021-05-07 01:28] LABS: Calcium 7.9 mg/dL (8.6-10.3); Potassium 4.6 mmol/L (3.5-5.0); eGFR CKD-EPI 18.7 (>60)
[2021-05-07 02:54] LABS: HCG Pregnancy < 0.60 mIU/mL
[2021-05-07 03:07] LABS: Troponin I 0.05 ng/mL (<0.03)
[2021-05-07 03:13] LABS: Albumin 3.6 g/dL (3.2-5.2); Anion Gap 18 mmol/L (2-11); CO2 Carbon Dioxide 15 mmol/L (22-32); Calcium 8.2 mg/dL (8.6-10.3); Chloride 102 mmol/L (101-111); Potassium 4.4 mmol/L (3.5-5.0); Sodium 135 mmol/L (135-145)
[2021-05-07 03:19] LABS: ALT 10 U/L (7-52); AST 12 U/L (13-39); Albumin/Globulin Ratio 1.9 (1-3); Alkaline Phosphatase 75 U/L (35-149); Blood Urea Nitrogen 57 mg/dL (6-24); Creatine Kinase 59 U/L (10-223); Globulin 1.9 g/dL (2-4); Glucose 372 mg/dL (70-100); Phosphorus 4.5 mg/dL (2.5-5.0); Total Protein 5.5 g/dL (6.4-8.9); eGFR CKD-EPI 18.3 (>60)
[2021-05-07 03:25] LABS: TSH Ultra Thyroid Stim Horm 1.26 mcIU/mL (0.34-5.60)
[2021-05-07 03:35] LABS: Osmolality Serum 328 mOsm/kg (275-295)
[2021-05-07 04:29] LABS: Hematocrit 31 % (35-47); Hemoglobin 10.3 g/dL (12.0-16.0); Mean Corpuscular HGB Conc 34 g/dL (31-36); Mean Corpuscular Hemoglobin 31 pg (27-31); Mean Corpuscular Volume 93 fL (80-97); Mean Platelet Volume 10.1 fL (7.4-10.4); Platelet Count 208 10^3/uL (150-450); Red Blood Count 3.29 10^6 /uL (3.70-4.87); Red Cell Distribution Width 15 % (10-15); White Blood Count 14.7 10^3/uL (3.5-10.8)
[2021-05-07 04:29] LABS: Urine Appearance Clear; Urine Bilirubin Negative (Negative); Urine Blood Negative (Negative); Urine Color Yellow; Urine Glucose 3+(>=500 mg/dL) (Negative); Urine Ketones 1+ (Negative); Urine Nitrite Negative (Negative); Urine Protein 2+(100 mg/dL) (Negative); Urine Specific Gravity 1.014 (1.002-1.030); Urine Urobilinogen Negative (Negative)
[2021-05-07 04:33] LABS: Urine Bacteria 1+ (Absent); Urine Red Blood Cell 2+(6-10/hpf) (Absent); Urine Squamous Epithelial Cell Present (Absent); Urine White Blood Cell Trace(0-5/hpf) (Absent)
[2021-05-07 04:46] LABS: Anion Gap 11 mmol/L (2-11); Blood Urea Nitrogen 58 mg/dL (6-24); CO2 Carbon Dioxide 22 mmol/L (22-32); Calcium 8.1 mg/dL (8.6-10.3); Chloride 103 mmol/L (101-111); Glucose 255 mg/dL (70-100); Sodium 136 mmol/L (135-145); eGFR CKD-EPI 17.7 (>60)
[2021-05-07 04:56] LABS: Troponin I 0.07 ng/mL (<0.03)
[2021-05-07] MEDS ORDERED: D5W 1/2 NS 1000 ml BAG 1,000 ML IV SCH (05:00)
[2021-05-07 05:10] LABS: ABS Basophils 0.1 10^3/ul (0-0.2); ABS Lymphocytes 1.3 10^3/ul (1.0-4.8); ABS Monocytes 0.3 10^3/ul (0-0.8); Eosinophil % 0.1 %; Nucleated Red Blood Cells % 0.1; RBC Morphology Normal (Normal)
[2021-05-07] MEDS ORDERED: Albuterol HFA INHALER 8 gm MDI INH PRN (05:50)
[2021-05-07] MEDS: Heparin 5000 UNITS/ML 1 mL VIAL SUBCUT SCH ×2 (08:17→19:58)
[2021-05-07 08:43] LABS: Troponin I 0.07 ng/mL (<0.03)
[2021-05-07] MEDS ORDERED: Pantoprazole VIAL 40 MG VIAL IV SCH (09:00)
[2021-05-07] MEDS ORDERED: Insulin GLARGINE 100 un/ml 10 ml VIAL SUBCUT SCH (10:00)
[2021-05-07 10:13] LABS: Blood Urea Nitrogen 60 mg/dL (6-24); CO2 Carbon Dioxide 19 mmol/L (22-32); Calcium 7.5 mg/dL (8.6-10.3); Chloride 107 mmol/L (101-111); Glucose 134 mg/dL (70-100); Sodium 135 mmol/L (135-145)
[2021-05-07 10:22] LABS: Anion Gap 9 mmol/L (2-11)
[2021-05-07] MEDS ORDERED: Dextrose 50% Syringe 50 ml 25 GM/50 ML SYRINGE IV PUSH PRN (11:01)
[2021-05-07] MEDS ORDERED: Lactated Ringers 1000 ml BAG 1,000 ML IV ONE (12:00)
[2021-05-07] MEDS: Phenol 1.4% Throat Spray 177 ml BTL MT PRN (17:55)
[2021-05-07 19:12] LABS: Phosphorus 3.5 mg/dL (2.5-5.0); Potassium 4.1 mmol/L (3.5-5.0); eGFR CKD-EPI 17.3 (>60)
[2021-05-07] MEDS ORDERED: NORMOSOL-R pH 7.4 1000 mL BAG 1,000 ML IV SCH (23:00)
[2021-05-08 05:11] LABS: ABS Basophils 0.1 10^3/ul (0-0.2); ABS Eosinophils 0.1 10^3/ul (0-0.6); ABS Lymphocytes 2.3 10^3/ul (1.0-4.8); ABS Monocytes 0.7 10^3/ul (0-0.8); ABS Neutrophils 13.6 10^3/ul (1.5-7.7); Eosinophil % 0.7 %; Hematocrit 35 % (35-47); Hemoglobin 11.4 g/dL (12.0-16.0); Lymphocyte % 13.4 %; Mean Corpuscular HGB Conc 33 g/dL (31-36); Mean Corpuscular Hemoglobin 31 pg (27-31); Mean Corpuscular Volume 95 fL (80-97); Mean Platelet Volume 10.5 fL (7.4-10.4); Platelet Count 193 10^3/uL (150-450); Red Blood Count 3.66 10^6 /uL (3.70-4.87); Red Cell Distribution Width 16 % (10-15); White Blood Count 16.7 10^3/uL (3.5-10.8)
[2021-05-08] MEDS: Phenol 1.4% Throat Spray 177 ml BTL MT PRN ×2 (08:14→16:46)
[2021-05-08] MEDS ORDERED: Prochlorperazine 5 mg/ml 2 ml VIAL (10 mg) IV PRN (09:08)
[2021-05-08] MEDS: Insulin GLARGINE 100 un/ml 10 ml VIAL SUBCUT SCH (10:03)
[2021-05-08] MEDS: Heparin 5000 UNITS/ML 1 mL VIAL SUBCUT SCH ×2 (10:04→20:47)
[2021-05-08] MEDS: Amoxicillin/Clavul 500/125 TAB (Augmentin 500 mg tab) PO SCH ×2 (12:18→20:59)
[2021-05-08] MEDS: Fluticasone NASAL SPRAY 50MCG 16 gm SPRAY BTL BOTH NARES SCH (20:47)
[2021-05-09 04:56] LABS: ABS Basophils 0.1 10^3/ul (0-0.2); ABS Eosinophils 0.1 10^3/ul (0-0.6); ABS Lymphocytes 1.9 10^3/ul (1.0-4.8); ABS Monocytes 0.4 10^3/ul (0-0.8); ABS Neutrophils 4.6 10^3/ul (1.5-7.7); Eosinophil % 1.3 %; Hematocrit 34 % (35-47); Hemoglobin 11.4 g/dL (12.0-16.0); Lymphocyte % 26.8 %; Mean Corpuscular HGB Conc 34 g/dL (31-36); Mean Corpuscular Hemoglobin 32 pg (27-31); Mean Corpuscular Volume 94 fL (80-97); Mean Platelet Volume 10.3 fL (7.4-10.4); Platelet Count 175 10^3/uL (150-450); Red Blood Count 3.56 10^6 /uL (3.70-4.87); Red Cell Distribution Width 15 % (10-15)
[2021-05-09 05:10] LABS: Albumin 3.1 g/dL (3.2-5.2); Albumin/Globulin Ratio 1.6 (1-3); Calcium 8.2 mg/dL (8.6-10.3); Magnesium 1.9 mg/dL (1.9-2.7); Potassium 4.3 mmol/L (3.5-5.0); Total Bilirubin 0.3 mg/dL (0.2-1.0); Total Protein 5.1 g/dL (6.4-8.9); eGFR CKD-EPI 26.4 (>60)
[2021-05-09] MEDS: Phenol 1.4% Throat Spray 177 ml BTL MT PRN (08:02)
[2021-05-09] MEDS: Fluticasone NASAL SPRAY 50MCG 16 gm SPRAY BTL BOTH NARES SCH (08:03)
[2021-05-09] MEDS: Amoxicillin/Clavul 500/125 TAB (Augmentin 500 mg tab) PO SCH (08:04)
[2021-05-09] MEDS: Heparin 5000 UNITS/ML 1 mL VIAL SUBCUT SCH (09:57)
[2021-05-09] MEDS: Insulin GLARGINE 100 un/ml 10 ml VIAL SUBCUT SCH (09:58)
[2021-05-09 11:25] VITALS: BP 136/72
== END 2021-05-09 14:45 | disposition home or self-care (01) | DRG 638 ==
LOC: ED 19:45 → SUATTDRO 23:33 → EDHOLD 23:33 → ICU 05-07 01:10 → SSU 05-08 03:09
PROVIDERS: ADMIT Internal Medicine; ATTEND Internal Medicine

== ENCOUNTER 2022-04-12 15:39 | Inpatient (IN) ==
[2022-04-12] MEDS ORDERED: Lactated Ringers 1000 ml BAG 1,000 ML IV ONE ×2 (15:54→16:59)
[2022-04-12] MEDS ORDERED: Ondansetron 4 mg VIAL 2 MG/ML 2 ml VIAL IV ONE (16:05)
[2022-04-12 16:35] LABS: ABS Lymphocytes 0.9 10^3/ul (1.0-4.8); ABS Monocytes 0.4 10^3/ul (0-0.8); ABS Neutrophils 7.1 10^3/ul (1.5-7.7); Eosinophil % 0.3 %; Hematocrit 40 % (35-47); Hemoglobin 12.7 g/dL (12.0-16.0); Lymphocyte % 10.4 %; Mean Corpuscular HGB Conc 32 g/dL (31-36); Mean Corpuscular Hemoglobin 34 pg (27-31); Mean Corpuscular Volume 105 fL (80-97); Mean Platelet Volume 10.2 fL (7.4-10.4); Platelet Count 242 10^3/uL (150-450); Red Blood Count 3.76 10^6 /uL (3.70-4.87); Red Cell Distribution Width 14 % (10-15); White Blood Count 8.4 10^3/uL (3.5-10.8)
[2022-04-12 16:41] LABS: Venous Bicarbonate HCO3 9.7 mmol/L (24-28)
[2022-04-12 17:28] LABS: Albumin 4.3 g/dL (3.2-5.2); Albumin/Globulin Ratio 1.8 (1-3); C Reactive Protein 1.05 mg/L (<8.01); Calcium 9.6 mg/dL (8.6-10.3); Globulin 2.4 g/dL (2-4); Total Bilirubin 0.9 mg/dL (0.2-1.0); Total Protein 6.7 g/dL (6.4-8.9); eGFR CKD-EPI 24.2 (>60)
[2022-04-12 17:29] LABS: Potassium 6.8 mmol/L (3.5-5.0)
[2022-04-12] MEDS ORDERED: Dextrose 50% Syringe 50 ml 25 GM/50 ML SYRINGE IV PUSH PRN (17:35)
[2022-04-12 17:53] LABS: Urine Bacteria Absent (Absent); Urine Red Blood Cell Trace(0-2/hpf) (Absent); Urine Squamous Epithelial Cell Present (Absent); Urine White Blood Cell Trace(0-5/hpf) (Absent)
[2022-04-12] MEDS ORDERED: Insulin Infusion 100unit/100mL 100 UNIT/100 ML BAG IV SCH (18:00)
[2022-04-12 18:01] LABS: Urine Appearance Clear; Urine Bilirubin Negative (Negative); Urine Blood Trace (Intact) (Negative); Urine Color Yellow; Urine Glucose 3+ (>=1000 mg/dL) (Negative); Urine Ketones 1+ (15mg/dL) (Negative); Urine Nitrite Negative (Negative); Urine Protein 2+ (100 mg/dL) (Negative); Urine Urobilinogen 0.2 (Negative) (Negative)
[2022-04-12 18:24] LABS: Magnesium 1.9 mg/dL (1.9-2.7)
[2022-04-12 19:08] LABS: High Sensitivity Troponin 1 Hr 4 pg/mL (<15)
[2022-04-12 19:39] LABS: Activated Partial Thrombo Time 25.5 seconds (26.0-38.0); INR 0.9 (0.89-1.11)
[2022-04-12 20:08] LABS: Calcium 8.8 mg/dL (8.6-10.3); eGFR CKD-EPI 22.1 (>60)
[2022-04-12 20:17] LABS: Potassium 5.5 mmol/L (3.5-5.0)
[2022-04-12] MEDS: Lactated Ringers 1000 ml BAG 1,000 ML IV SCH (21:02)
[2022-04-12] MEDS: Heparin 5000 UNITS/ML 1 mL VIAL SUBCUT SCH (21:15)
[2022-04-12] MEDS ORDERED: D5NS 0.9% 1000 ml BAG 1,000 ML IV SCH (23:45)
[2022-04-13 00:47] LABS: Calcium 8.5 mg/dL (8.6-10.3); Potassium 4.8 mmol/L (3.5-5.0); eGFR CKD-EPI 24.4 (>60)
[2022-04-13] MEDS ORDERED: D5NS 0.9% 1000 ml BAG 1,000 ML IV SCH (01:14)
[2022-04-13] MEDS: D5NS 0.9% 1000 ml BAG 1,000 ML IV SCH ×2 (02:00→04:28)
[2022-04-13 04:20] LABS: Hematocrit 28 % (35-47); Hemoglobin 9.3 g/dL (12.0-16.0); Mean Corpuscular HGB Conc 33 g/dL (31-36); Mean Corpuscular Hemoglobin 33 pg (27-31); Mean Corpuscular Volume 100 fL (80-97); Mean Platelet Volume 9.2 fL (7.4-10.4); Platelet Count 201 10^3/uL (150-450); Red Blood Count 2.83 10^6 /uL (3.70-4.87); Red Cell Distribution Width 13 % (10-15); White Blood Count 8.2 10^3/uL (3.5-10.8)
[2022-04-13 04:49] LABS: Potassium 4.8 mmol/L (3.5-5.0); eGFR CKD-EPI 23.6 (>60)
[2022-04-13] MEDS ORDERED: Dextrose 50% Syringe 50 ml 25 GM/50 ML SYRINGE IV PUSH PRN (05:00)
[2022-04-13] MEDS: Heparin 5000 UNITS/ML 1 mL VIAL SUBCUT SCH ×3 (05:13→21:25)
[2022-04-13] MEDS: Insulin GLARGINE 100 un/ml 10 ml VIAL SUBCUT SCH ×2 (05:21→09:10)
[2022-04-13] MEDS ORDERED: Magnesium Sulfate 2 gm BAG 2 GM/50 ML BAG IVPB ONE (07:38)
[2022-04-13] MEDS: Lactated Ringers 1000 ml BAG 1,000 ML IV SCH (11:49)
[2022-04-13 12:03] LABS: CO2 Carbon Dioxide 20 mmol/L (22-32); Calcium 8.5 mg/dL (8.6-10.3); Chloride 108 mmol/L (101-111); Sodium 135 mmol/L (135-145)
[2022-04-13 12:05] LABS: Anion Gap 7 mmol/L (2-11)
[2022-04-13 12:09] LABS: Blood Urea Nitrogen 46 mg/dL (6-24); Glucose 121 mg/dL (70-100)
[2022-04-14] MEDS: Heparin 5000 UNITS/ML 1 mL VIAL SUBCUT SCH ×3 (05:35→20:37)
[2022-04-14] MEDS: Insulin GLARGINE 100 un/ml 10 ml VIAL SUBCUT SCH (08:29)
[2022-04-14] MEDS: Polyethylene Glycol 3350 17 GM PACKET PO SCH (13:05)
[2022-04-14] MEDS ORDERED: Senna TAB 8.6 mg TAB PO SCH (21:00)
[2022-04-15] MEDS: Heparin 5000 UNITS/ML 1 mL VIAL SUBCUT SCH (05:51)
[2022-04-15 05:53] LABS: ABS Eosinophils 0.2 10^3/ul (0-0.6); ABS Lymphocytes 1.9 10^3/ul (1.0-4.8); ABS Monocytes 0.4 10^3/ul (0-0.8); ABS Neutrophils 2.6 10^3/ul (1.5-7.7); Eosinophil % 3.4 %; Hematocrit 32 % (35-47); Hemoglobin 10.7 g/dL (12.0-16.0); Lymphocyte % 37.4 %; Mean Corpuscular HGB Conc 33 g/dL (31-36); Mean Corpuscular Hemoglobin 34 pg (27-31); Mean Corpuscular Volume 101 fL (80-97); Mean Platelet Volume 9.4 fL (7.4-10.4); Platelet Count 193 10^3/uL (150-450); Red Blood Count 3.17 10^6 /uL (3.70-4.87); Red Cell Distribution Width 13 % (10-15); White Blood Count 5.2 10^3/uL (3.5-10.8)
[2022-04-15 06:29] LABS: Calcium 8.4 mg/dL (8.6-10.3); Potassium 4.6 mmol/L (3.5-5.0)
[2022-04-15] MEDS: Polyethylene Glycol 3350 17 GM PACKET PO SCH (08:03)
[2022-04-15] MEDS ORDERED: INSULIN PUMP CONTROLLER SCH (09:00)
[2022-04-15 10:54] VITALS: BP 137/84
== END 2022-04-15 13:27 | disposition home or self-care (01) | DRG 638 ==
LOC: ED 15:39 → SUATTDRO 18:13 → EDHOLD 18:13 → ICU 19:20 → MED 04-13 21:28
PROVIDERS: ADMIT Internal Medicine; ATTEND Internal Medicine

== ENCOUNTER 2024-02-12 11:09 | Inpatient (IN) ==
[2024-02-12] MEDS ORDERED: Rocuronium 50 mg VIAL 10 mg/ml 5 ml VIAL (50 mg) ONE (11:11)
[2024-02-12] MEDS ORDERED: Succinylcholine 200 mg VIAL 20 mg/ml 10 ml VIAL (200 mg) ONE ×2 (11:11→11:17)
[2024-02-12] MEDS ORDERED: Etomidate 40 mg/20 ml (2 MG/ML) 20 ml VIAL (40 mg) ONE (11:17)
[2024-02-12] MEDS ORDERED: Propofol 10 mg/ml 100 ML BTL 1,000 MG/100 ML BTL ONE (11:27)
[2024-02-12] MEDS: Propofol 10 mg/ml 100 ML BTL 1,000 MG/100 ML BTL IV SCH (11:35)
[2024-02-12] MEDS: Cefepime 2 GM in Dextrose 2 GM/50 ML BAG IV ONE (11:37)
[2024-02-12] MEDS ORDERED: Ondansetron 4 mg VIAL 2 MG/ML 2 ml VIAL ONE (11:37)
[2024-02-12] MEDS: Lactated Ringers 1000 ml BAG 1,000 ML IV SCH (11:49)
[2024-02-12] MEDS ORDERED: Lorazepam PYXIS KEY PRN (11:57)
[2024-02-12] MEDS ORDERED: LORazepam 2 mg VIAL 1 ml ONE (11:57)
[2024-02-12] MEDS ORDERED: levETIRAcetam 1000MG IVPREMIX 1,000 MG/100 ML BAG ONE (11:57)
[2024-02-12] MEDS: LORazepam 2 mg VIAL 1 ml IV PUSH ONE (11:58)
[2024-02-12] MEDS: levETIRAcetam 1000MG IVPREMIX 1,000 MG/100 ML BAG IVPB ONE (12:00)
[2024-02-12 12:04] LABS: Resp Rate 14
[2024-02-12 12:05] LABS: PCO2 Arterial 28 mmHg (35-45); PO2 Arterial 93 mmHg (80-100)
[2024-02-12] MEDS ORDERED: Sodium Bicarbonate 8.4% SYR 50 ml SYRINGE ONE (12:08)
[2024-02-12 12:11] LABS: Activated Partial Thrombo Time 26.4 seconds (26.0-38.0); INR 0.86 (0.85-1.14)
[2024-02-12] MEDS: Sodium Bicarbonate 8.4% SYR 50 ml SYRINGE IV ONE (12:11)
[2024-02-12 12:13] LABS: ABS Basophils 0.1 10^3/uL (0.0-0.1); ABS Lymphocytes 1.6 10^3/uL (1.0-4.8); ABS Monocytes 0.4 10^3/uL (0.0-0.9); ABS Neutrophils 15.2 10^3/uL (1.5-7.6); Eosinophil % 0.1 %; Hematocrit 38.5 % (35-45); Hemoglobin 10.8 g/dL (11.5-14.3); Lymphocyte % 9.4 %; Mean Corpuscular Hgb Conc 28.1 g/dL (31-36); Mean Corpuscular Volume 106.9 fL (80-97); Mean Platelet Volume 10.5 fL (7.5-11.2); Platelet Count 338 10^3/uL (150-450); Red Cell Distribution Width 14.2 % (12-17); White Blood Count 17.3 10^3/uL (3.8-11.8)
[2024-02-12 12:20] LABS: High Sens Troponin Baseline 15 pg/mL (<15)
[2024-02-12] MEDS: Iodixanol 320 (CONTRAST) 100 ML SDV IV ONE (12:30)
[2024-02-12 12:38] LABS: ALT 11 U/L (7-52); Albumin 3.9 g/dL (3.2-5.2); Albumin/Globulin Ratio 1.4 (1-3); Alkaline Phosphatase 120 U/L (35-149); Blood Urea Nitrogen 61 mg/dL (6-24); C Reactive Protein 1.27 mg/L (<8.01); CO2 Carbon Dioxide 11 mmol/L (22-32); Calcium 9.3 mg/dL (8.6-10.3); Chloride 86 mmol/L (101-111); Creatinine, Serum 3.46 mg/dL (0.51-0.95); Globulin 2.7 g/dL (2-4); Sodium 123 mmol/L (135-145); Total Bilirubin 0.5 mg/dL (0.2-1.0); Total Protein 6.6 g/dL (6.4-8.9); eGFR CKD-EPI 15.5 (>60)
[2024-02-12 12:53] LABS: AST 16 U/L (13-39); Anion Gap 26 mmol/L (2-16)
[2024-02-12 12:55] LABS: Glucose 1179 mg/dL (70-100); Potassium 6.2 mmol/L (3.5-5.0)
[2024-02-12] MEDS: NS 0.9% 1000 ml BAG 1,000 ML IV ONE (13:23)
[2024-02-12 13:25] LABS: Urine Appearance Clear; Urine Bacteria Absent /HPF (Absent); Urine Bilirubin Negative (Negative); Urine Blood Trace (Negative); Urine Color Colorless; Urine Glucose 4+ (>=1000 mg/dL) (Negative); Urine Ketones 1+ (Negative); Urine Nitrite Negative (Negative); Urine Protein 2+ (>=100 mg/dL) (Negative); Urine Red Blood Cell Trace(0-2/hpf) /HPF (0-Trace); Urine Squamous Epithelial Cell Present /HPF (Absent); Urine Urobilinogen Negative (Negative); Urine White Blood Cell Trace(0-5/hpf) /HPF (0-Trace)
[2024-02-12] MEDS: Vancomycin 1,000 MG in NS 0.9% 250 ml 250 ML IVPB ONE (13:27)
[2024-02-12] MEDS: Insulin Infusion 100unit/100mL 100 UNIT/100 ML BAG IV SCH (13:53)
[2024-02-12 14:01] LABS: High Sensitivity Troponin 1 Hr 18 pg/mL (<15)
[2024-02-12 14:26] LABS: Creatine Kinase 82 U/L (10-223); Magnesium 2.5 mg/dL (1.9-2.7); Phosphorus 7.1 mg/dL (2.5-5.0)
[2024-02-12 14:39] LABS: TSH Ultra Thyroid Stim Horm 2.95 mcIU/mL (0.34-5.60)
[2024-02-12] MEDS: NORMOSOL-R pH 7.4 1000 mL BAG 1,000 ML IV ONE (14:57)
[2024-02-12] MEDS ORDERED: Vancomycin per Pharmacy 1 EA NOTE FOLLOW UP SCH (15:00)
[2024-02-12] MEDS: Chlorhexidine MOUTHWASH 0.12% 15 ML UDC TOPICAL SCH (15:11)
[2024-02-12 15:16] LABS: Urine Appearance Clear; Urine Bacteria Absent /HPF (Absent); Urine Bilirubin Negative (Negative); Urine Blood Trace (Negative); Urine Color Colorless; Urine Glucose 4+ (>=1000 mg/dL) (Negative); Urine Ketones 1+ (Negative); Urine Nitrite Negative (Negative); Urine Protein 2+ (>=100 mg/dL) (Negative); Urine Red Blood Cell Trace(0-2/hpf) /HPF (0-Trace); Urine Squamous Epithelial Cell Present /HPF (Absent); Urine Urobilinogen Negative (Negative); Urine White Blood Cell Trace(0-5/hpf) /HPF (0-Trace)
[2024-02-12] MEDS: fentaNYL INFUSION 50 mcg/mL VL 2,500 MCG/50 ML VIAL IV SCH (15:17)
[2024-02-12 15:19] LABS: Urine Benzodiazepine Screen None Detected (None Detect); Urine Cannabinoids Screen None Detected (None Detect); Urine Opiates Screen None Detected (None Detect)
[2024-02-12] MEDS: fentaNYL 100 mcg/2 ml 50 MCG/ML VIAL IV SLOW PU ONE (15:35)
[2024-02-12] MEDS: NORMOSOL-R pH 7.4 1000 mL BAG 1,000 ML IV SCH (15:56)
[2024-02-12 16:14] LABS: Albumin 3.6 g/dL (3.2-5.2); Albumin/Globulin Ratio 1.4 (1-3); Calcium 8.6 mg/dL (8.6-10.3); Creatinine, Serum 3.31 mg/dL (0.51-0.95); Globulin 2.5 g/dL (2-4); Potassium 6.1 mmol/L (3.5-5.0); Total Bilirubin 0.4 mg/dL (0.2-1.0); Total Protein 6.1 g/dL (6.4-8.9); eGFR CKD-EPI 16.3 (>60)
[2024-02-12 17:28] LABS: Calcium 7.6 mg/dL (8.6-10.3); Creatinine, Serum 3.18 mg/dL (0.51-0.95); Magnesium 2.2 mg/dL (1.9-2.7); Phosphorus 4.3 mg/dL (2.5-5.0); Potassium 4.5 mmol/L (3.5-5.0); eGFR CKD-EPI 17.1 (>60)
[2024-02-12] MEDS: fentaNYL 100 mcg/2 ml 50 MCG/ML VIAL ONE (17:55)
[2024-02-12 18:42] LABS: Glucose Confirmatory 489 mg/dL (70-100)
[2024-02-12] MEDS: levETIRAcetam 500 MG IVPREMIX 500 MG/100 ML BAG IV SCH ×2 (19:03→23:33)
[2024-02-12] MEDS: Acetaminophen IV 1 GM/100ML 1,000 MG/100 ML BAG IV PRN (20:11)
[2024-02-12] MEDS: Heparin 5000 UNITS/ML 1 mL VIAL SUBCUT SCH (21:04)
[2024-02-12] MEDS: D5LR 1000 ml BAG 1,000 ML IV ONE (21:30)
[2024-02-12 21:32] LABS: Venous Bicarbonate HCO3 24.7 mmol/L (24-28)
[2024-02-12] MEDS: KCL 10 MEQ/50 ML IVPREMIX 10 MEQ/50 ML BAG IV SCH (22:10)
[2024-02-12 22:16] LABS: Calcium 7.8 mg/dL (8.6-10.3); Creatinine, Serum 3.21 mg/dL (0.51-0.95); Magnesium 2.1 mg/dL (1.9-2.7); Phosphorus 3.2 mg/dL (2.5-5.0); Potassium 3.9 mmol/L (3.5-5.0); eGFR CKD-EPI 16.9 (>60)
[2024-02-12] MEDS: metroNIDAZOLE IV 500 MG/100ML 500 MG/100 ML BAG IVPB SCH (23:58)
[2024-02-13] MEDS ORDERED: Cefepime 2 GM in Dextrose 2 GM/50 ML BAG IV SCH
[2024-02-13 01:48] LABS: Venous Bicarbonate HCO3 24.9 mmol/L (24-28)
[2024-02-13 02:06] LABS: Calcium 7.6 mg/dL (8.6-10.3); Creatinine, Serum 3.2 mg/dL (0.51-0.95); Magnesium 2.1 mg/dL (1.9-2.7); Potassium 4.1 mmol/L (3.5-5.0)
[2024-02-13] MEDS: Norepinephrine 4 MG/250mL D5W 4,000 MCG/250 ML BAG IV SCH (02:09)
[2024-02-13] MEDS: Norepinephrine 4 MG/250mL D5W 4,000 MCG/250 ML BAG IV ONE (02:11)
[2024-02-13] MEDS: Insulin GLARGINE 100 un/ml 10 ml VIAL SUBCUT SCH (02:37)
[2024-02-13] MEDS ORDERED: Dextrose 50% Syringe 50 ml 25 GM/50 ML SYRINGE IV PUSH PRN (03:46)
[2024-02-13] MEDS: Dextrose 50% Syringe 50 ml 25 GM/50 ML SYRINGE IV PUSH PRN (04:04)
[2024-02-13 05:07] LABS: ABS Basophils 0.1 10^3/uL (0.0-0.1); ABS Eosinophils 0.1 10^3/uL (0.0-0.5); ABS Lymphocytes 2.2 10^3/uL (1.0-4.8); ABS Monocytes 1.2 10^3/uL (0.0-0.9); ABS Neutrophils 13.4 10^3/uL (1.5-7.6); ABS Nucleated RBC 0.01 10^3/ul; Eosinophil % 0.3 %; Hematocrit 24.8 % (35-45); Hemoglobin 8.5 g/dL (11.5-14.3); Lymphocyte % 12.8 %; Mean Corpuscular Hemoglobin 31.2 pg (27-33); Mean Corpuscular Hgb Conc 34.2 g/dL (31-36); Mean Corpuscular Volume 91.2 fL (80-97); Nucleated Red Blood Cells % 0.1 %/100WBC (0.0-0.8); Platelet Count 278 10^3/uL (150-450); Red Blood Count 2.72 10^6/uL (3.63-4.92); Red Cell Distribution Width 12.8 % (12-17); White Blood Count 16.9 10^3/uL (3.8-11.8)
[2024-02-13 05:56] LABS: Calcium 7.9 mg/dL (8.6-10.3); Creatinine, Serum 3.2 mg/dL (0.51-0.95); Magnesium 2.1 mg/dL (1.9-2.7); Phosphorus 3.8 mg/dL (2.5-5.0); Potassium 4.3 mmol/L (3.5-5.0)
[2024-02-13] MEDS: Cefepime 2 GM in Dextrose 2 GM/50 ML BAG IV SCH (10:41)
[2024-02-13] MEDS: Pantoprazole VIAL 40 MG VIAL IV SCH (10:41)
[2024-02-13] MEDS: Vancomycin Random Level NOTE FOLLOW UP ONE (10:46)
[2024-02-13] MEDS: Furosemide 20 mg/2 ml IV VIAL IV ONE (11:37)
[2024-02-13 12:03] LABS: Alcohol, S < 13 mg/dL (<13)
[2024-02-13 15:44] LABS: Creatinine, Serum 3.31 mg/dL (0.51-0.95); Magnesium 2.1 mg/dL (1.9-2.7); Phosphorus 3.6 mg/dL (2.5-5.0); Potassium 3.9 mmol/L (3.5-5.0); eGFR CKD-EPI 16.3 (>60)
[2024-02-14] MEDS: Midazolam 2 mg/2 ml VIAL 1 mg/ml 2 ml VIAL (2 mg) ONE (02:22)
[2024-02-14 04:35] LABS: ABS Basophils 0.1 10^3/uL (0.0-0.1); ABS Eosinophils 0.2 10^3/uL (0.0-0.5); ABS Monocytes 0.5 10^3/uL (0.0-0.9); ABS Neutrophils 9.8 10^3/uL (1.5-7.6); ABS Nucleated RBC 0.01 10^3/ul; Eosinophil % 1.7 %; Hematocrit 26.5 % (35-45); Hemoglobin 8.9 g/dL (11.5-14.3); Lymphocyte % 8.6 %; Mean Corpuscular Hgb Conc 33.7 g/dL (31-36); Mean Corpuscular Volume 92.2 fL (80-97); Mean Platelet Volume 9.4 fL (7.5-11.2); Nucleated Red Blood Cells % 0.1 %/100WBC (0.0-0.8); Platelet Count 230 10^3/uL (150-450); Red Blood Count 2.87 10^6/uL (3.63-4.92); Red Cell Distribution Width 13.2 % (12-17); White Blood Count 11.5 10^3/uL (3.8-11.8)
[2024-02-14 05:15] LABS: Creatinine, Serum 3.29 mg/dL (0.51-0.95); Magnesium 2.1 mg/dL (1.9-2.7); Phosphorus 4.9 mg/dL (2.5-5.0); Potassium 4.1 mmol/L (3.5-5.0); eGFR CKD-EPI 16.4 (>60)
[2024-02-14] MEDS: Insulin GLARGINE 100 un/ml 10 ml VIAL SUBCUT SCH (05:22)
[2024-02-14] MEDS: Furosemide 20 mg/2 ml IV VIAL IV ONE ×2 (08:17→09:36)
[2024-02-14] MEDS: Thiamine 100 MG/ML 2 ml VIAL 100 MG in NS 0.9% 50 ML 50 ML IV SCH (18:28)
[2024-02-15 04:10] LABS: ABS Basophils 0.1 10^3/uL (0.0-0.1); ABS Eosinophils 0.1 10^3/uL (0.0-0.5); ABS Lymphocytes 0.9 10^3/uL (1.0-4.8); ABS Monocytes 0.6 10^3/uL (0.0-0.9); ABS Neutrophils 10.3 10^3/uL (1.5-7.6); Eosinophil % 0.8 %; Hematocrit 26.3 % (35-45); Hemoglobin 8.8 g/dL (11.5-14.3); Lymphocyte % 7.3 %; Mean Corpuscular Hemoglobin 31.2 pg (27-33); Mean Corpuscular Hgb Conc 33.4 g/dL (31-36); Mean Corpuscular Volume 93.4 fL (80-97); Mean Platelet Volume 9.8 fL (7.5-11.2); Platelet Count 229 10^3/uL (150-450); Red Blood Count 2.81 10^6/uL (3.63-4.92); White Blood Count 11.9 10^3/uL (3.8-11.8)
[2024-02-15 04:45] LABS: Calcium 7.9 mg/dL (8.6-10.3); Creatinine, Serum 3.51 mg/dL (0.51-0.95); Potassium 3.8 mmol/L (3.5-5.0); eGFR CKD-EPI 15.2 (>60)
[2024-02-15] MEDS: KCL 20 MEQ/100 ML IVPREMIX 20 MEQ/100 ML BAG IV ONE (08:02)
[2024-02-15 08:03] LABS: Phosphorus 5.1 mg/dL (2.5-5.0)
[2024-02-15] MEDS: KCL 10 MEQ/50 ML IVPREMIX 10 MEQ/50 ML BAG IV ONE (08:08)
[2024-02-15 10:34] LABS: C Reactive Protein 62.67 mg/L (<8.01)
[2024-02-15] MEDS ORDERED: Dextrose 50% Syringe 50 ml 25 GM/50 ML SYRINGE IV PUSH PRN (11:25)
[2024-02-15 13:00] LABS: Body Fluid Source Cerebral Spinal
[2024-02-15] MEDS: fentaNYL 100 mcg/2 ml 50 MCG/ML VIAL IV SLOW PU ONE (13:07)
[2024-02-15] MEDS: fentaNYL 100 mcg/2 ml 50 MCG/ML VIAL ONE (13:07)
[2024-02-15] MEDS: Midazolam 2 mg/2 ml VIAL 1 mg/ml 2 ml VIAL (2 mg) IV SLOW PU PRN (13:08)
[2024-02-15 13:15] LABS: CSF Glucose 139 mg/dL (40-70)
[2024-02-15 14:35] LABS: CSF Body Fluid WBC 8 /mcL
[2024-02-15 14:40] LABS: Body Fluid Appearance Clear; Body Fluid Color Colorless; CSF Tube # 4
[2024-02-15] MEDS: Albuterol/Ipratropium NEB.SOL (2.5/0.5 MG) 3 ML NEB.SOLN INH ONE (14:46)
[2024-02-15 17:35] LABS: Body Fluid Mono 16 %; Body Fluid Total Cells Counted 83
[2024-02-16] MEDS: Labetalol IV 5 MG/ML 20 ml VIAL IV PUSH PRN (02:07)
[2024-02-16 05:18] LABS: ABS Basophils 0.1 10^3/uL (0.0-0.1); ABS Lymphocytes 0.9 10^3/uL (1.0-4.8); ABS Monocytes 0.6 10^3/uL (0.0-0.9); ABS Neutrophils 10.1 10^3/uL (1.5-7.6); Eosinophil % 0.4 %; Hematocrit 27.5 % (35-45); Lymphocyte % 7.4 %; Mean Corpuscular Hgb Conc 32.6 g/dL (31-36); Mean Corpuscular Volume 95.2 fL (80-97); Mean Platelet Volume 10.1 fL (7.5-11.2); Platelet Count 240 10^3/uL (150-450); Red Blood Count 2.89 10^6/uL (3.63-4.92); Red Cell Distribution Width 13.2 % (12-17); White Blood Count 11.7 10^3/uL (3.8-11.8)
[2024-02-16 05:50] LABS: Creatinine, Serum 3.13 mg/dL (0.51-0.95); Phosphorus 4.8 mg/dL (2.5-5.0); Potassium 4.4 mmol/L (3.5-5.0); eGFR CKD-EPI 17.5 (>60)
[2024-02-16 06:56] LABS: Glucose Confirmatory 485 mg/dL (70-100)
[2024-02-16] MEDS: Insulin Infusion 100unit/100mL 100 UNIT/100 ML BAG IV SCH (09:38)
[2024-02-16] MEDS ORDERED: Albuterol/Ipratropium NEB.SOL (2.5/0.5 MG) 3 ML NEB.SOLN INH SCH (10:00)
[2024-02-16] MEDS: Albuterol/Ipratropium NEB.SOL (2.5/0.5 MG) 3 ML NEB.SOLN INH SCH (11:51)
[2024-02-16 14:37] LABS: HSV 1 PCR, CSF Negative (Negative); HSV 2 PCR, CSF Negative (Negative)
[2024-02-17] MEDS ORDERED: Benzocaine (DENTAL) 10% TOP.GEL TOPICAL PRN (00:17)
[2024-02-17] MEDS: BENZOCAINE/MENTHOL (ORAJEL)20% 1 APPLIC TOP.GEL TOPICAL PRN (01:17)
[2024-02-17] MEDS: Insulin GLARGINE 100 un/ml 10 ml VIAL SUBCUT SCH (05:22)
[2024-02-17 06:09] LABS: ABS Basophils 0.1 10^3/uL (0.0-0.1); ABS Eosinophils 0.1 10^3/uL (0.0-0.5); ABS Monocytes 0.7 10^3/uL (0.0-0.9); ABS Neutrophils 8.3 10^3/uL (1.5-7.6); Eosinophil % 0.9 %; Hemoglobin 7.9 g/dL (11.5-14.3); Lymphocyte % 10.1 %; Mean Corpuscular Hemoglobin 30.8 pg (27-33); Mean Corpuscular Hgb Conc 32.9 g/dL (31-36); Mean Corpuscular Volume 93.6 fL (80-97); Mean Platelet Volume 10.2 fL (7.5-11.2); Platelet Count 257 10^3/uL (150-450); Red Blood Count 2.56 10^6/uL (3.63-4.92); White Blood Count 10.1 10^3/uL (3.8-11.8)
[2024-02-17 07:34] LABS: Calcium 7.8 mg/dL (8.6-10.3); Creatinine, Serum 3.06 mg/dL (0.51-0.95); Magnesium 1.9 mg/dL (1.9-2.7); Phosphorus 2.5 mg/dL (2.5-5.0); Potassium 4.2 mmol/L (3.5-5.0); eGFR CKD-EPI 17.9 (>60)
[2024-02-17] MEDS: Insulin GLARGINE 100 un/ml 10 ml VIAL SUBCUT ONE (08:26)
[2024-02-17] MEDS: Oxymetazoline 0.05% NASAL SPR 15 ML BTL BOTH NARES SCH (11:36)
[2024-02-17] MEDS ORDERED: Insulin LISPRO FOR INSULIN PUMP SUBCUT SCH (14:00)
[2024-02-17] MEDS: Ondansetron ODT 4 mg TAB 4 MG TAB SL PRN (14:22)
[2024-02-17] MEDS: Lactated Ringers 1000 ml BAG 1,000 ML IV SCH (16:09)
[2024-02-17 23:41] LABS: High Sensitivity Troponin 1 Hr 35 pg/mL (<15)
[2024-02-18] MEDS ORDERED: Albuterol/Ipratropium NEB.SOL (2.5/0.5 MG) 3 ML NEB.SOLN INH PRN (01:12)
[2024-02-18 06:44] LABS: ABS Basophils 0.1 10^3/uL (0.0-0.1); ABS Eosinophils 0.3 10^3/uL (0.0-0.5); ABS Lymphocytes 1.8 10^3/uL (1.0-4.8); ABS Monocytes 0.8 10^3/uL (0.0-0.9); ABS Neutrophils 6.6 10^3/uL (1.5-7.6); Eosinophil % 3.3 %; Hematocrit 24.3 % (35-45); Hemoglobin 8.1 g/dL (11.5-14.3); Lymphocyte % 18.7 %; Mean Corpuscular Hemoglobin 31.2 pg (27-33); Mean Corpuscular Hgb Conc 33.4 g/dL (31-36); Mean Corpuscular Volume 93.4 fL (80-97); Mean Platelet Volume 10.1 fL (7.5-11.2); Platelet Count 275 10^3/uL (150-450); Red Cell Distribution Width 13.3 % (12-17); White Blood Count 9.6 10^3/uL (3.8-11.8)
[2024-02-18 06:58] LABS: Calcium 8.4 mg/dL (8.6-10.3); Creatinine, Serum 3.1 mg/dL (0.51-0.95); Phosphorus 3.2 mg/dL (2.5-5.0); eGFR CKD-EPI 17.7 (>60)
[2024-02-18] MEDS: levETIRAcetam 500 MG IVPREMIX 500 MG/100 ML BAG IV SCH (08:11)
[2024-02-18] MEDS ORDERED: Insulin GLARGINE 100 un/ml 10 ml VIAL SUBCUT SCH (09:00)
[2024-02-18] MEDS: Fluticasone NASAL SPRAY 50MCG 16 gm SPRAY BTL BOTH NARES SCH (12:14)
[2024-02-18 17:10] LABS: Glucose Confirmatory 488 mg/dL (70-100)
[2024-02-18 19:37] LABS: Glucose Confirmatory 475 mg/dL (70-100)
[2024-02-19] MEDS: Lidocaine PATCH 5% PATCH TRANSDERM SCH (08:14)
[2024-02-19 08:35] LABS: Urine Appearance Clear; Urine Bilirubin Negative (Negative); Urine Blood 3+ (Negative); Urine Color Light-Yellow; Urine Glucose 3+ (>=300 mg/dL) (Negative); Urine Ketones Negative (Negative); Urine Nitrite Negative (Negative); Urine Protein 2+ (>=100 mg/dL) (Negative); Urine Urobilinogen Negative (Negative)
[2024-02-19 08:46] LABS: Urine Bacteria Absent /HPF (Absent); Urine Red Blood Cell 3+(>10/hpf) /HPF (0-Trace); Urine Squamous Epithelial Cell Present /HPF (Absent); Urine White Blood Cell 2+(11-20/hpf) /HPF (0-Trace)
[2024-02-19 11:08] LABS: ABS Eosinophils 0.4 10^3/uL (0.0-0.5); ABS Lymphocytes 1.7 10^3/uL (1.0-4.8); ABS Monocytes 0.6 10^3/uL (0.0-0.9); ABS Neutrophils 4.7 10^3/uL (1.5-7.6); ABS Nucleated RBC 0.01 10^3/ul; Eosinophil % 5.9 %; Hematocrit 28.1 % (35-45); Hemoglobin 9.1 g/dL (11.5-14.3); Mean Corpuscular Hemoglobin 30.7 pg (27-33); Mean Corpuscular Hgb Conc 32.5 g/dL (31-36); Mean Corpuscular Volume 94.3 fL (80-97); Mean Platelet Volume 9.8 fL (7.5-11.2); Nucleated Red Blood Cells % 0.1 %/100WBC (0.0-0.8); Platelet Count 367 10^3/uL (150-450); Red Blood Count 2.98 10^6/uL (3.63-4.92); Red Cell Distribution Width 13.4 % (12-17); White Blood Count 7.4 10^3/uL (3.8-11.8)
[2024-02-19 11:52] LABS: Albumin 3.1 g/dL (3.2-5.2); Albumin/Globulin Ratio 1.2 (1-3); Creatinine, Serum 2.75 mg/dL (0.51-0.95); Globulin 2.6 g/dL (2-4); Total Bilirubin 0.3 mg/dL (0.2-1.0); Total Protein 5.7 g/dL (6.4-8.9); eGFR CKD-EPI 20.4 (>60)
[2024-02-20 09:45] VITALS: BP 185/103
[2024-02-20 09:52] LABS: Calcium 8.7 mg/dL (8.6-10.3); Creatinine, Serum 3.12 mg/dL (0.51-0.95); Potassium 5.1 mmol/L (3.5-5.0); eGFR CKD-EPI 17.5 (>60)
== END 2024-02-20 11:46 | disposition left against medical advice (07) | DRG 70 ==
LOC: ED 11:09 → EDHOLD 13:19 → SUATTDRO 13:19 → ICU 13:46 → MEDTELE 02-16 17:00
PROVIDERS: ADMIT Internal Medicine; ATTEND Student in an Organized Health Care Education/Training Program